=== PATIENT | female | born 1950 | race Caucasian/White ===

== ENCOUNTER 2022-02-06 21:34 | Emergency (ER) | payer MEDICARE, SELFPAY ==
[2022-02-06] VITALS (25 sets, daily range): BP systolic 144–152; BP diastolic 47–52; PULSE 89–93; RESP 18; TEMP 37; O2SAT 97–100
--- NOTE | 2022-02-06 21:30 | RT.EKG_ITS ---
APPROVED REPORT Exam: Resting ECG Reason for Exam: chest pain Patient Location: E HR:93 bpm ECG Measurements Heart Rate 93 AXIS PA 160 P 85 QRSd 90 QRS -66 QT 353 T 62 QTc 440 Conclusion Sinus rhythm...normal P axis, V-rate 60- 99 Inferior infarct, old...Q >35mS, II III aVF Anterior infarct, old...Q >40mS, abnormal ST-T, V2-V5 Physician: no stemi
--- NOTE | 2022-02-06 22:00 | DI.RAD_ITS ---
Exam(s) XR PORTABLE CHEST AP EXAM: XR PORTABLE CHEST AP CLINICAL HISTORY: shortness of breath TECHNIQUE: 2D digital imaging was performed of the chest. One image was obtained. An AP view was ob tained. COMPARISON: No exams were available for comparison FINDINGS: MEDIASTINUM: Normal. HEART: Normal. PULMONARY VASCULATURE: Normal. LUNGS: Clear. PLEURAL SPACE: No pleural effusion or pneumothorax. BONE:Within normal limits for the patient's age. OTHER FINDINGS:Normal. IMPRESSION: No acute pulmonary findings. DATA REPOSITORY: RADIATION DOSE DELIVERED:
--- NOTE | 2022-02-06 23:07 | DI.VRAD_ITS ---
PROCEDURE INFORMATION: Exam: XR Chest Exam date and time: 02/06/2022 10:26 PM Age: 71 years old Clinical indication: Shortness of breath TECHNIQUE: Imaging protocol: Radiologic exam of the chest. Views: 1 view. COMPARISON: No relevant prior studies available. FINDINGS: Lungs: Unremarkable. No consolidation. Pleural spaces: Unremarkable. No pleural effusion. No pneumothorax. Heart/Mediastinum: Unremarkable. No cardiomegaly. Bones/joints: Unremarkable. IMPRESSION: No acute findings. Dictated and Authenticated by: Ortega Briggs MD. Ordering:MILE Schroeder MD
[2022-02-06 23:20] LABS: Abs Immature Grans 0.02 10^3/uL (0.0-0.06); Absolute Basophil Count 0.02 10^3/uL (0.0-0.2); Absolute Eosinophil Count 0.28 10^3/uL (0.0-0.7); Absolute Lymphocyte Count 0.75 10^3/uL (1.2-3.4); Absolute Monocyte Count 0.47 10^3/uL (0.1-0.8); Absolute Neutrophil Count 4.06 10^3/uL (1.2-6.7); Basophils % 0.4; HGB 11.1 g/dL (11.2-15.7); Immature Grans % 0.4; Lymphocytes % 13.4; MCH 27.6 pg (27.0-33.0); MCHC 31.7 % (32.0-36.0); MCV 87 fL (80-95); MPV 9.3 fL (8.0-11.0); Monocytes % 8.4; Neutrophils % 72.4; Platelet Count 299 10^3/uL (130-400); RBC 4.02 10^6/uL (3.93-5.22); RDW 13.9 % (11.7-14.6); RDW-SD 43.8 fL
--- NOTE | 2022-02-06 23:23 | ED.GENADUL_ITS ---
Discharge Plan Disposition Patient Disposition: HOME Condition: Stable Discharge Details Clinical Impression: COVID-19, Acute pancreatitis Primary Care Provider: None,None ED Provider: Woody Guzman Home Meds and New Rx's Prescriptions: No Action atorvastatin 40 mg tablet 1 tab PO DAILY Flovent Diskus 50 mcg/actuation blister with device 1 ea INHALATION DAILY fluticasone propion-salmeterol [Advair Diskus] 250-50 mcg/dose blister with device 1 ea INHALATION 1XD clonazepam 0.5 mg tablet 1 tab PO 1XD PRN (Reason: Anxiety) Label Comments: take 1 tablet by mouth if needed for SEVERE ANXIETY, MAX 1 TAB A DAY hydroxyzine HCl 50 mg tablet 1 tab PO PRN PRN metformin 1,000 mg tablet 1 tab PO DAILY Label Comments: take 1 tablet by mouth twice a day with meals lisinopril 5 mg tablet 1 tab PO DAILY Label Comments: take 1 tablet by mouth once daily albuterol sulfate 90 mcg/actuation HFA aerosol inhaler 1 inh INHALATION PRN PRN (Reason: Respiratory Distress) Label Comments: inhale 2 puffs by mouth and INTO THE LUNGS four times a day if needed for wheezing diclofenac sodium 1 % gel TOPICAL PRN PRN (Reason: Rash) fluoxetine 60 mg tablet 1 tab PO DAILY Label Comments: TAKE 1 TABLET BY MOUTH DAILY Discharge Instructions Instructions: COVID-19 (Coronavirus Disease 2019) (ED) Additional Instructions: At this time you do have COVID-19. Thankfully your chest CT does not show any evidence of severe COVID and your oxygenation levels are excellent. You have chosen to take monoclonal antibody therapy, which will likely decrease the longevity and severity of your symptoms. However as we discussed together if you do not feel any better over the next 24 to 36 hours, you are still a candidate for the antiviral therapy. Please contact us immediately if you do change your mind and would like to take this. Please monitor your oxygen closely with your pulse oximeter. If you notice that your oxygen drops below 91% for an extended period of time please return for reassessment and reevaluation. Additionally you do have mild pancreatitis which is likely from COVID. This is causing your nausea. Please avoid any significant foods and try to stick with a clear liquid diet for the next few days. Drink plenty of fluids and stay well- hydrated. If you notice any worsening of your symptoms, or any new symptoms such as vomiting, diarrhea, fever, chills, shortness of breath, chest pain, numbness, weakness, or fainting , please return immediately to the emergency department for reevaluation. Please follow up with your primary care provider as soon as possible for reassessment and reevaluation. As always, it was a pleasure par ticipating in your medical care today. Discharge Data Discharge Date/Time-TO BE ENTERED AT DEPARTURE: 02/07/22 03:35 Medical Decision Making <JUAN F Bunn - Last Filed: 02/08/22 09:25> Patient is ambulatory with steady gait, mild tachycardia, no leukocytosis Afebrile without hypoxia Suspect patient has COVID-19 and she had a recent exposure Will order fluids, Decadron with shortness of breath and history of COPD, diagnostic labs, x-ray, virtual radiology interpretation reveals no evidence of acute abnormality, reviewed by me reveals a She will be transitioned to Dr. Stefano Guzman pending reassessment, ct chest/abd/pelvis <Woody Guzman DO - Last Filed: 02/07/22 02:23> Patient is ambulatory with steady gait, mild tachycardia, no leukocytosis Afebrile without hypoxia Suspect patient has COVID-19 and she had a recent exposure Will order fluids, Decadron with shortness of breath and history of COPD, diagnostic labs, x-ray, virtual radiology interpretation reveals no evidence of acute abnormality, reviewed by me reveals a She will be transitioned to Dr. Stefano Guzman pending reassessment, ct chest/abd/pelvis Dr. Guzman's documentation: Patient was signed out to me by my colleague Elda Zacarias. Please refer to HPI, physical exam, assessment and plan. At time of signout we are awaiting CT results. CTA of the chest shows no significant abnormality aside for mild bronchial inflammation. Additionally CT of the abdomen is unremarkable. Mild enteritis is noted. Patient does have elevation in her lipase, likely suggestive of mild pancreatitis, likely viral. Patient's respiratory status remains notably stable. No indication for inpatient admission at this time. I did discuss with the patient potential treatment options for COVID-19. We discussed monoclonal antibodies and the antiviral therapy. Patient states very clearly that she would just like the monoclonal antibody therapy and does not want antiviral therapy. I did discuss risks and benefits of this. She understands. She was given the monoclonal antibody therapy and tolerated this very well. She remained stable. She will be discharged home and does have a pulse oximeter for home monitoring. I have extensively reviewed the treatment plan and discharge instructions with the patient. I have addressed all patient concerns at this time. The patient was made aware of what symptoms to monitor for that would warrant a return to the emergency department. Discussed the plan with the patient, they demonstrate verbal understanding and agreement with our assessment and plan at this time. The documentation in this chart was dictated using [employer] dictation software. Please excuse any dictation errors. FINDINGS: Pulmonary arteries: Normal. No pulmonary emboli. Aorta: Unremarkable. No aortic aneurysm. No aortic dissection. Lungs: Emphysematous changes noted, upper lobe predominant. Mucus obstructed bronchi are noted in the right lung. No consolidation. No ground-glass opacity. Pleural spaces: Unremarkable. No pneumothorax. No pleural effusion. Heart: Unremarkable. No cardiomegaly. No pericardial effusion. No coronary artery calcifications. Lymph nodes: Unremarkable. No enlarged lymph nodes. Gallbladder and bile ducts: Cholecystectomy clips noted. Bones/joints: Unremarkable. No acute fracture. Soft tissues: Unremarkable IMPRESSION: 1. No pulmonary embolism. 2. No aortic dissection. 3. No consolidations. 4. Emphysematous changes. 5. Bronchial inflammation and endobronchial mucus. Thank you for allowing us to participate in the care of your patient. Dictated and Authenticated by: Ortega Briggs MD 02/07/2022 1:20 AM Eastern Time ([place] & [place]) FINDINGS: Lungs: Please see CT chest dictated separately. Liver: Normal. No mass. Gallbladder and bile ducts: The gallbladder is surgically absent. Negative for biliary ductal dilatation. Pancreas: Unremarkable pancreas. No ductal dilatation. No inflammatory change. No fluid collections. Spleen: Normal. No splenomegaly. Adrenal glands: Normal. No mass. Kidneys and ureters: Kidneys enhance symmetrically. Negative for hydronephrosis. Ureters are not dilated. No stones are observed. Stomach and bowel: Unremarkable stomach. Nondilated small bowel. Fat planes around loops of small bowel are indistinct. There are no inflammatory changes observed around the colon. Appendix: Normal appendix Intraperitoneal space: Mild mesenteric fat stranding. No significant free fluid. Negative for free air. Negative for abscess. Vasculature: Moderate vascular calcifications. Negative for abdominal aortic aneurysm. Lymph nodes: Mesenteric lymph nodes are mildly prominent. Negative for patholog ic lymphadenopathy. Urinary bladder: Collapsed. Reproductive: Unremarkable as visualized. Bones/joints: No compression fractures. Moderate degenerative changes noted at L2-L3. Mild narrowing present in the right hip. Severe narrowing and subchondral cysts noted at the left hip. Soft tissues: Negative for abdominal wall hernia. IMPRESSION: 1. Unremarkable pancreas by CT. 2. Findings of enteritis. 3. No abscess. Thank you for allowing us to participate in the care of your patient. Dictated and Authenticated by: Ortega Briggs MD 02/07/2022 1:23 AM Eastern Time ([place] & [place]) HPI <JUAN F Bunn - Last Filed: 02/08/22 09:25> General Date/Time Provider Initiated Documentation: 02/06/22 22:03 . HPI Narrative: This 71-year-old female with history of COPD, type II [id number] diabetes, hypertension, anxiety and depression presents with report of shortness of breath and intermittent chest pain. She states that she has had chills and myalgias. She states that her granddaughter had COVID last week. She denies any current chest discomfort. She denies any calf pain or swelling. She denies history of coagulopathy. She recently relocated from [facility] approximately 2 months ago. She has nausea without vomiting. Has a mild headache. She is not taking any medications prior to arrival. She states she is having chills. She has any urinary symptoms. She reports no shortness of breath. Related Data Home Medications Medication Instructions Recorded Confirmed albuterol sulfate 90 mcg/actuation 1 inh inhalation PRN PRN 02/06/22 02/06/22 aerosol inhaler Respiratory Distress atorvastatin 40 mg tablet 1 tab PO DAILY 02/06/22 02/06/22 clonazepam 0.5 mg tablet 1 tab PO 1XD PRN Anxiety 02/06/22 02/06/22 diclofenac sodium 1 % topical gel applic topical PRN PRN Rash 02/06/22 fluoxetine 60 mg tablet 1 tab PO DAILY 02/06/22 02/06/22 fluticasone 250 mcg-salmeterol 50 1 ea inhalation 1XD 02/06/22 02/06/22 mcg/dose blistr powdr for inhalation (Advair Diskus) fluticasone propionate 50 1 ea inhalation DAILY 02/06/22 02/06/22 mcg/actuation blister powder for inhalation (Flovent Diskus) hydroxyzine HCl 50 mg tablet 1 tab PO PRN PRN 02/06/22 02/06/22 lisinopril 5 mg tablet 1 tab PO DAILY 02/06/22 02/06/22 metformin 1,000 mg tablet 1 tab PO DAILY 02/06/22 02/06/22 Allergies Allergy/AdvReac Type Severity Reaction Status Date / Time adhesive AdvReac Skin Rash Unverified 02/06/22 23:03 bupropion [From Wellbutrin] AdvReac Dizziness/L Unverified 02/06/22 23:03 ighthead codeine AdvReac Nausea Unverified 02/07/22 07:12 quetiapine [From Seroquel] AdvReac Dizziness/L Unverified 02/06/22 23:03 ighthead Review of Systems <JUAN F Bunn - Last Filed: 02/08/22 09:25> All systems reviewed & are unremarkable except as noted in HPI and below PFSH <JUAN F Bunn - Last Filed: 02/08/22 09:25> All Active Problems (Updated 02/07/22 @ 02:14 by Woody Guzman DO) COVID-19 (Acute) Acute pancreatitis (Acute) Social History Smoking/Tobacco Use Status: Current, status unknown Smoking risk assessment performed?: Yes Drug use: Never Substance use type: does not use Do you feel safe at home: Yes Do you feel safe in your relationship?: Yes Exam <JUAN F Bunn Last Filed: 02/08/22 09:25> Const General: cooperative, comfortable and no acute distress Orientation: alert and oriented x3 Eyes Sclera: sclerae normal Resp Effort & Inspection: normal respiratory effort Auscultation: clear to auscultation bilaterally Cardio Rate: tachycardic Rhythm: regular rhythm GI Inspection: normal to inspection Skin General skin exam: no rashes or lesions noted Neuro General: patient alert and patient oriented x3 Cognition: normal cognition Gait: normal gait Extrem Other: no calf swelling or tenderness Course <JUAN F Bunn Last Filed: 02/08/22 09:25> Lab/Test Results Lab/Test Results: Laboratory Tests Range/Units 02/06/22 22:58 WBC (4.4-10.8) 10^3/uL 5.60 RBC (3.93-5.22) 10^6/uL 4.02 Hgb (11.2-15.7) g/dL 11.1 L Hct (36.0-46.0) % 35.0 L MCV (80-95) fL 87 MCH (27.0-33.0) pg 27.6 MCHC (32.0-36.0) % 31.7 L RDW (11.7-14.6) % 13.9 Plt Count (130-400) 10^3/uL 299 MPV (8.0-11.0) fL 9.3 Immature Gran % 0.4 Neutrophils % 72.4 Lymphocytes % 13.4 Monocytes % 8.4 Eosinophils % 5.0 Basophils % 0.4 Nucleated RBC % (0.0-0.3) % 0.0 Absolute Neutrophils (1.2-6.7) 10^3/uL 4.06 Absolute Lymphocytes (1.2-3.4) 10^3/uL 0.75 L Absolute Monocytes (0.1-0.8) 10^3/uL 0.47 Absolute Eosinophils (0.0-0.7) 10^3/uL 0.28 Absolute Basophils (0.0-0.2) 10^3/uL 0.02 Sign Out <JUAN F Bunn - Last Filed: 02/08/22 09:25> Sign Out Data: Sign Out Comment: pending ct chest abd pelvis, fluids, dispo Last updated by Elda Zacarias PA at 02/07/22 00:12
[2022-02-06 23:33] LABS: Lipase 1065 U/L (73-393)
[2022-02-06 23:38] LABS: ALT 41 U/L (14-59); AST 28 U/L (15-37); Albumin 3.9 g/dL (3.4-5.0); Alkaline Phosphatase 96 U/L (46-116); Anion Gap 10.1 mmol/L (3-11); BUN 18 mg/dL (7-18); Bilirubin, Total 0.3 mg/dL (0.2-1.0); CO2 27.9 mmol/L (21.0-32.0); CREATININE 1.3 mg/dL (0.55-1.02); Calcium 10.1 mg/dL (8.5-10.1); Chloride 102 mmol/L (98-107); Estimated GFR 43.69 (mL/min/1.73m2); Glucose 110 mg/dL (74-106); Potassium 4.3 mmol/L (3.5-5.1); Sodium 140 mmol/L (136-145); Total Protein 7.5 g/dL (6.4-8.2)
[2022-02-06 23:42] LABS: Troponin I < 50 ng/L (<or=60)
[2022-02-06] MEDS: Dexamethasone 4 MG/ML VIAL 6 MG IVP (23:45)
[2022-02-06] MEDS: Acetaminophen 325 MG TAB 650 MG PO (23:45)
[2022-02-06] MEDS: Ondansetron 4 MG/2 ML VIAL IVP (23:45)
[2022-02-06] MEDS: Normal Saline 1,000 ML 1000 ML IV (23:45)
[2022-02-06 23:57] LABS: Influenza A PCR Negative (Negative); Influenza B PCR Negative (Negative); RSV PCR Negative (Negative)
[2022-02-07] VITALS (41 sets, daily range): BP systolic 130–162; BP diastolic 39–54; PULSE 87–98; RESP 14; O2SAT 78–100
--- NOTE | 2022-02-07 | DI.CT_ITS ---
Exam(s) CT CHEST PE CTA EXAM: CT CHEST PE CTA CLINICAL HISTORY: covid, chest pain, and shortness of breath. TECHNIQUE: Imaging Protocol: Axial CT angiography was performed with multi-slice acquisition and mu lti-planar and/or 3D reconstructions. CONTRAST MATERIAL: Intravenous: Omnipaque 350 contrast volume:100 mL COMPARISON: CR,XR XR PORTABLE CHEST AP from 02/06/2022 FINDINGS: Tracheobronchial tree: Patent where visualized. Pulmonary parenchyma: No consolidation or dominant measurable mass. Moderate centrilobular emphysemat ous changes are present. Pulmonary Arteries: No evidence of filling defect to suggest pulmonary emboli. Mediastinum and Krista: No dominant adenopathy or fluid collection. The esophagus is unremarkable. Th ere is a small hiatal hernia. Visualized thyroid gland: Unremarkable. Pleura: No effusion or pneumothorax. Heart: The heart is not dilated. No coronary artery calcifications are seen. No pericardial effusion. Aorta: Thoracic aorta non-dilated. No evidence of dissection. Atherosclerosis is present. Upper abdomen: Status post cholecystectomy. Soft tissues: Unremarkable. Bones: Within normal limits for the patient's age. IMPRESSION: 1. No evidence of pulmonary embolism, thoracic aortic dissection or aneurysm. 2. No focal consolidation. 3. Moderate centrilobular emphysema. RADIATION DOSE DELIVERED: Total DLP DATA REPOSITORY: All CT scans at this facility are submitted to the National Radiology Data Registry (NRDR) Dose Index Registry (DIR) with the [employer] ([employer]). RADIATION OPTIMIZATION: All CT scans at this facility use at least one of these dose optimization te chniques: automated exposure control; mA and/or kV adjustment per patient size (includes targeted exa ms where dose is matched to clinical indication); or iterative reconstruction.
--- NOTE | 2022-02-07 | DI.CT_ITS ---
Exam(s) CT ABDOMEN PELVIS W EXAM: CT ABDOMEN PELVIS W CLINICAL HISTORY: elevated lipase,. covid TECHNIQUE: Imaging Protocol: Axial computed tomography images with coronal and sagittal reformatted images were created and reviewed CONTRAST MATERIAL: Intravenous: Omnipaque 350 Contrast volume:100 mL Oral: No COMPARISON: No exams were available for comparison FINDINGS: ABDOMEN: Lung Bases: Normal where visualized. Liver: Normal density. No measurable mass. Portal, Superior Mesenteric, and Splenic Veins: Unremarkable. Gallbladder and Biliary Tract: Status post cholecystectomy. There is mild dilatation of the extrahep atic bile ducts likely reflecting the post cholecystectomy state. Pancreas: Normal density, no abnormal calcifications or inflammatory process. Spleen: Normal. Adrenals: No masses seen. Kidneys: Normal size, contour and axis. No radiodense stones or obstructive uropathy. There is a tiny simple cyst in the midpole of the left kidney. No follow-up is recommended. Abdominal Aorta: Abdominal portion non-dilated. Atherosclerosis is present. Bowel: No evidence of obstruction. Mild wall thickening in loops of small bowel in the left upper ab domen which may represent an infectious or inflammatory enteritis. Appendix is unremarkable. Peritoneal Cavity: No ascites, collection or mesenteric inflammatory response. No free air. Lymph Nodes: Within normal limits. Bones: Within normal limits for the patient's age. Moderately severe degenerative changes are seen i n the left hip. Soft Tissues: Unremarkable. PELVIS: Bladder: There is diffuse thickening of the wall of the urinary bladder. Reproductive Organs: Unremarkable as visualized. Lymph Nodes: Within normal limits. Bones: Within normal limits for the patient's age. IMPRESSION: 1. Unremarkable pancreas. No CT evidence to suggest acute pancreatitis. 2. Findings suspicious for enteritis. RADIATION DOSE DELIVERED: 1140.97 mGy.cm Total DLP DATA REPOSITORY: All CT scans at this facility are submitted to the National Radiology Data Registry (NRDR) Dose Index Registry (DIR) with the [employer] (ACR). RADIATION OPTIMIZATION: All CT scans at this facility use at least one of these dose optimization te chniques: automated exposure control; mA and/or kV adjustment per patient size (includes targeted exa ms where dose is matched to clinical indication); or iterative reconstruction.
[2022-02-07 00:07] LABS: Source Nasopharynx
[2022-02-07 00:08] LABS: COVID-19 PCR Positive (Negative)
[2022-02-07] MEDS: Omnipaque 350 MG/ML 100 ML BTL IJ (00:51)
[2022-02-07 01:08] LABS: Bilirubin Negative (Negative); Blood Negative (Negative); Clarity Clear (Clear); Glucose Negative (Negative); Ketones Negative (Negative); Leukocyte Esterase Negative (Negative); Nitrite Negative (Negative); Specific Gravity >= 1.030 (1.005-1.025); Urobilinogen 0.2 EU/dL (Up TO 0.2)
[2022-02-07 01:14] LABS: D-Dimer 893 ng/mlFEU (<500)
--- NOTE | 2022-02-07 01:20 | DI.VRAD_ITS ---
PROCEDURE INFORMATION: Exam: CTA Chest With Contrast Exam date and time: 02/07/2022 12:35 AM Age: 71 years old Clinical indication: Shortness of breath and other: Covid, chest pain, and shortness of breath TECHNIQUE: Imaging protocol: Computed tomographic angiography of the chest with contrast. 3D rendering (Not supervised by radiologist): MIP and/or 3D reconstructed images were created by the technologist. Radiation optimization: All CT scans at this facility use at least one of these dose optimization techniques: automated exposure control; mA and/or kV adjustment per patient size (includes targeted exams where dose is matched to clinical indication); or iterative reconstruction. Contrast material: OMNI 350; Contrast volume: 100 ml; Contrast route: INTRAVENOUS (IV); COMPARISON: XR PORTABLE CHEST AP 02/06/2022 10:26 PM FINDINGS: Pulmonary arteries: Normal. No pulmonary emboli. Aorta: Unremarkable. No aortic aneurysm. No aortic dissection. Lungs: Emphysematous changes noted, upper lobe predominant. Mucus obstructed bronchi are noted in the right lung. No consolidation. No ground-glass opacity. Pleural spaces: Unremarkable. No pneumothorax. No pleural effusion. Heart: Unremarkable. No cardiomegaly. No pericardial effusion. No coronary artery calcifications. Lymph nodes: Unremarkable. No enlarged lymph nodes. Gallbladder and bile ducts: Cholecystectomy clips noted. Bones/joints: Unremarkable. No acute fracture. Soft tissues: Unremarkable. IMPRESSION: 1. No pulmonary embolism. 2. No aortic dissection. 3. No consolidations. 4. Emphysematous changes. 5. Bronchial inflammation and endobronchial mucus. Dictated and Authenticated by: Ortega Briggs MD. Ordering:MILE Schroeder MD
--- NOTE | 2022-02-07 01:24 | DI.VRAD_ITS ---
PROCEDURE INFORMATION: Exam: CT Abdomen And Pelvis With Contrast Exam date and time: 02/07/2022 12:35 AM Age: 71 years old Clinical indication: Other: Elevated lipase, . covid; Prior surgery; Surgery date: 6+ months; Surgery type: Cholecystectomy TECHNIQUE: Imaging protocol: Computed tomography of the abdomen and pelvis with contrast. Radiation optimization: All CT scans at this facility use at least one of these dose optimization techniques: automated exposure control; mA and/or kV adjustment per patient size (includes targeted exams where dose is matched to clinical indication); or iterative reconstruction. Contrast material: OMNI 350; Contrast volume: 100 ml; Contrast route: INTRAVENOUS (IV); COMPARISON: XR PORTABLE CHEST AP 02/06/2022 10:26 PM FINDINGS: Lungs: Please see CT chest dictated separately. Liver: Normal. No mass. Gallbladder and bile ducts: The gallbladder is surgically absent. Negative for biliary ductal dilatation. Pancreas: Unremarkable pancreas. No ductal dilatation. No inflammatory change. No fluid collections. Spleen: Normal. No splenomegaly. Adrenal glands: Normal. No mass. Kidneys and ureters: Kidneys enhance symmetrically. Negative for hydronephrosis. Ureters are not dilated. No stones are observed. Stomach and bowel: Unremarkable stomach. Nondilated small bowel. Fat planes around loops of small bowel are indistinct. There are no inflammatory changes observed around the colon. Appendix: Normal appendix. Intraperitoneal space: Mild mesenteric fat stranding. No significant free fluid. Negative for free air. Negative for abscess. Vasculature: Moderate vascular calcifications. Negative for abdominal aortic aneurysm. Lymph nodes: Mesenteric lymph nodes are mildly prominent. Negative for pathologic lymphadenopathy. Urinary bladder: Collapsed. Reproductive: Unremarkable as visualized. Bones/joints: No compression fractures. Moderate degenerative changes noted at L2-L3. Mild narrowing present in the right hip. Severe narrowing and subchondral cysts noted at the left hip. Soft tissues: Negative for abdominal wall hernia. IMPRESSION: 1. Unremarkable pancreas by CT. 2. Findings of enteritis. 3. No abscess. Dictated and Authenticated by: Ortega Briggs MD. Ordering:MILE Schroeder MD
== END 2022-02-07 03:35 | disposition home or self-care (01) ==
PROVIDERS: Physician Assistant; Emergency Provider Student in an Organized Health Care Education/Training Program
DX: U07.1 COVID-19 (principal); K85.90 Acute pancreatitis without necrosis or infection, unspecified; I10 Essential (primary) hypertension; E11.9 Type 2 diabetes mellitus without complications; J44.9 Chronic obstructive pulmonary disease, unspecified; R00.0 Tachycardia, unspecified; Z79.51 Long term (current) use of inhaled steroids; Z79.84 Long term (current) use of oral hypoglycemic drugs
CPT/HCPCS: 71275; 80053; 83690; 87637; 93005; 96361; 96374; 96375; 99284; 99285; Q0222; 71045; 74177; 81003; 84484; 85025; 85379; 93010; J1100; J2405; J3490

== ENCOUNTER 2022-04-17 16:41 | Emergency (ER) | payer MEDICARE, SELFPAY ==
[2022-04-17] VITALS (52 sets, daily range): BP systolic 132–169; BP diastolic 49–63; PULSE 92–104; RESP 9–37; TEMP 37.6–38.4; O2SAT 96–100
--- NOTE | 2022-04-17 16:45 | DI.RAD_ITS ---
Exam(s) XR PORTABLE CHEST AP EXAM: XR PORTABLE CHEST AP CLINICAL HISTORY: cough, r/o acute disease. TECHNIQUE: 2D digital imaging was performed. COMPARISON: CR,XR XR PORTABLE CHEST AP from 02/06/2022 FINDINGS: Single AP portable view. Heart size is upper normal. The mediastinum is not widened. Lungs are clear. No infiltrates nor obvious pleural effusions. IMPRESSION: No acute pulmonary findings on this single AP portable view of the chest. DATA REPOSITORY: RADIATION DOSE DELIVERED:
--- NOTE | 2022-04-17 16:45 | RT.EKG_ITS ---
APPROVED REPORT Exam: Resting ECG Reason for Exam: sob Patient Location: E HR:97 bpm ECG Measurements Heart Rate 97 AXIS OK 148 P -26 QRSd 85 QRS 127 QT 339 T -17 QTc 431 Conclusion Sinus rhythm...normal P axis, V-rate 60- 99 Probable left atrial enlargement...P >50mS, <-0.10mV V1 Anteroseptal infarct, age indeterminate...Q >35mS, T neg, V1-V2. Sinus. Normal axis. No STEMI. I have reviewed and interpreted ECG and agree with software generated interpretation.
--- NOTE | 2022-04-17 17:13 | ED.GENADUL_ITS ---
Discharge Plan Disposition Patient Disposition: Home Condition: Improving Discharge Details Clinical Impression: Influenza A Primary Care Provider: Rima Fontenot ED Provider: Selin Moreno Home Meds and New Rx's Prescriptions: Continued atorvastatin 40 mg tablet 1 tab PO DAILY Flovent Diskus 50 mcg/actuation blister with device 1 ea INHALATION DAILY fluticasone propion-salmeterol [Advair Diskus] 250-50 mcg/dose blister with device 1 ea INHALATION 1XD clonazepam 0.5 mg tablet 1 tab PO 1XD PRN (Reason: Anxiety) Label Comments: take 1 tablet by mouth if needed for SEVERE ANXIETY, MAX 1 TAB A DAY hydroxyzine HCl 50 mg tablet 1 tab PO PRN PRN metformin 1,000 mg tablet 1 tab PO DAILY Label Comments: take 1 tablet by mouth twice a day with meals lisinopril 5 mg tablet 1 tab PO DAILY Label Comments: take 1 tablet by mouth once daily albuterol sulfate 90 mcg/actuation HFA aerosol inhaler 1 inh INHALATION PRN PRN (Reason: Respiratory Distress) Label Comments: inhale 2 puffs by mouth and INTO THE LUNGS four times a day if needed for wheezing diclofenac sodium 1 % gel TOPICAL PRN PRN (Reason: Rash) fluoxetine 60 mg tablet 1 tab PO DAILY Label Comments: TAKE 1 TABLET BY MOUTH DAILY Discharge Instructions Instructions: H1N1 Influenza (ED) Additional Instructions: You tested positive for influenza A today. Your COVID and RSV test today are negative. Your chest x-ray shows no evidence of acute disease. Drink plenty of fluids and get plenty of rest. Alternate tylenol and motrin as needed and directed for pain. Use your albuterol inhaler and nebulizer machine as needed and directed for cough or shortness of breath. Follow-up with your primary care doctor in 1 week. Return to the emergency department with any worsening or new concerning symptoms. Discharge Data Discharge Date/Time-TO BE ENTERED AT DEPARTURE: 04/17/22 19:37 Discharge Physician: Selin Moreno Medical Decision Making 0 -- 72-year-old female with a history of hypertension, hyperlipidemia, diabetes, COPD, anxiety, PTSD and chronic tobacco smoking who presents with 1 week of headache, cough, nausea and shortness of breath. Heart rate 104, temp 101.1 on arrival. She has normal respiratory rate and oxygen saturation. She has diminished breath sounds throughout. Normal oropharynx. No lower extremity edema. Differential diagnosis includes influenza, COVID, pneumonia, bronchitis. History and presentation does not appear consistent with ACS or PE. Will obtain a SARS/flu antigen test and chest x-ray in addition to DuoNeb, fluids and IV Tylenol. Antigen test positive for influenza A. She is negative for RSV and COVID. Chest x-ray negative for acute disease. 1800 --patient reassessed after neb treatment and states she feels better. Patient was able to eat and drink and feels comfortable going home. She was given an albuterol inhaler to go. She was advised to increase fluids, rest and alternate Tylenol and Motrin. Advised to follow up with the primary care doctor for re-evaluation. Usual and customary return precautions given prior to discharge. Medical Records Medical records reviewed: Yes I reviewed the patient's medical records. Imaging Data Radiologic Study: Radiologist's impression: XR Chest Exam date and time: 04/17/2022 5:27 PM Age: 72 years old Clinical indication: Other: Cough, R/O acute disease TECHNIQUE: Imaging protocol: Radiologic exam of the chest. Views: 1 view. COMPARISON: XR PORTABLE CHEST AP 02/06/2022 10:26 PM FINDINGS: Lungs: The lungs are clear without infiltrate or edema. Pleural spaces: No pleural effusion. No pneumothorax. Heart/Mediastinum: The cardiac silhouette is normal in size. Bones/joints: No acute osseous abnormality. IMPRESSION: No acute findings. HPI General Mode of arrival: ambulatory . Date/Time Provider Initiated Documentation: 04/17/22 16:43 . Limitations to Documentation: no limitations . Information obtained by: patient . HPI Narrative: Patient is a 72-year-old female with a history of hypertension, hyperlipidemia, diabetes, COPD with chronic tobacco smoking who presents for headache, nausea, cough and shortness of breath of the past week. Patient states her cough initially was dry and is now productive of yellow sputum. She states she was unaware that she had a fever. She states she has not taken any medication including Tylenol or Motrin for her symptoms today. She states she has not been eating or drinking and has not drank any water today. She states she is still smoking cigarettes. She states she has also had intermittent chest pains for the past week but denies any at present. She denies any sore throat, abdominal pain, nausea, vomiting, diarrhea or urinary symptoms. Related Data Home Medications Medication Instructions Recorded Confirmed albuterol sulfate 90 mcg/actuation 1 inh inhalation PRN PRN 02/06/22 04/17/22 aerosol inhaler Respiratory Distress atorvastatin 40 mg tablet 1 tab PO DAILY 02/06/22 04/17/22 clonazepam 0.5 mg tablet 1 tab PO 1XD PRN Anxiety 02/06/22 04/17/22 diclofenac sodium 1 % topical gel applic topical PRN PRN Rash 02/06/22 fluoxetine 60 mg tablet 1 tab PO DAILY 02/06/22 04/17/22 fluticasone 250 mcg-salmeterol 50 1 ea inhalation 1XD 02/06/22 04/17/22 mcg/dose blistr powdr for inhalation (Advair Diskus) fluticasone propionate 50 1 ea inhalation DAILY 02/06/22 04/17/22 mcg/actuation blister powder for inhalation (Flovent Diskus) hydroxyzine HCl 50 mg tablet 1 tab PO PRN PRN 02/06/22 04/17/22 lisinopril 5 mg tablet 1 tab PO DAILY 02/06/22 04/17/22 metformin 1,000 mg tablet 1 tab PO DAILY 02/06/22 04/17/22 Allergies Allergy/AdvReac Type Severity Reaction Status Date / Time adhesive AdvReac Skin Rash Unverified 04/17/22 17:09 bupropion [From Wellbutrin] AdvReac Dizziness/L Unverified 04/17/22 17:09 ighthead codeine AdvReac Nausea Unverified 04/17/22 17:09 quetiapine [From Seroquel] AdvReac Dizziness/L Unverified 04/17/22 17:09 ighthead General Stated Complaint: Headache LOUANN: 3 Review of Systems All systems reviewed & are unremarkable except as noted in HPI and below Constitutional Constitutional: Reports as per HPI, Denies chills, Denies fever(s) and Reports headache(s) Eyes Eyes: Denies blurry vision ENT Ears, Nose, Mouth, and Throat: Denies dizziness, Reports headache(s), Denies sore throat and Denies throat swelling Cardiovascular Cardiovascular: Denies chest pain and Reports dyspnea Respiratory Respiratory: Reports cough and Reports dyspnea Gastrointestinal Gastrointestinal: Denies abdominal pain, Denies diarrhea, Reports nausea and Denies vomiting Genitourinary Genitourinary: Denies hematuria and Denies dysuria Musculoskeletal Musculoskeletal: Denies back pain and Denies numbness Integumentary/Breasts Skin/Breast: Denies lesions and Denies rash Neurologic Neurologic: Denies dizziness, Reports headache(s), Denies localized weakness and Denies numbness Allergic/Immunologic Allergic/Immunologic: Denies throat swelling PFSH All Active Problems (Updated 04/17/22 @ 18:12 by Selin Moreno DO) Influenza A (Acute) Sialoadenitis (Acute) Herniated nucleus pulposus of lumbosacral region (Acute) COVID-19 (Acute) Medical History (Updated 04/17/22 @ 18:12 by Selin Moreno DO) Asthma COPD (chronic obstructive pulmonary disease) BRANDON (generalized anxiety disorder) Hyperlipidemia Hypertension Post traumatic stress disorder (PTSD) Renal insufficiency Type II diabetes mellitus Surgical History (Updated 04/12/22 @ 10:39 by Jaymie Wilson) History of cholecystectomy History of laminectomy (06/17/20) Left L3-4 laminotomy discectomy left L3, L4 nerve root decompression History of tonsillectomy and adenoidectomy Family History (Updated 04/12/22 @ 10:43 by Jaymie Wilson) Maternal Grandfather Asthma Son Asthma Depression Mother Heart disease Hypertension Brother Heart disease Sister Cancer Uterine Social History (Updated 04/12/22 @ 08:47 by Jaymie Wilson) Smoking/Tobacco Use Status: Current-Occasional Tobacco Type: cigarettes Years smoked: 50 Tobacco: How many years used: 50 Quit status: considering quitting Smoking risk assessment performed?: Yes Alcohol Intake: never Drug use: Never Substance use type: does not use Adopted: No Caregiver/Support person: No Foster care: No Household members: children Housing: house Number of Children: 2 number of grandchildren: 5 Communication Needs: None Education Level: high school Do you need help understanding health information?: Rarely current occupation: Retired Pets and animals: No Sexually active: No Do you think of yourself as: straight/heterosexual Current gender identity: female What is your relationship status?: How often do you talk on the phone with friends or family?: three or more times per week How often do you get together with friends or relatives?: once per week Do you belong to any clubs or organized social groups?: no Panel score (0-1 are the most socially isolated patients): 1 What type of physical activity do you participate in: walking Duration: 15-30 minutes/day Frequency: 5-6 times per week Isabel/Episcopal: Latter-Day Special isabel needs: No Seatbelt use: always Helmet use: No Drive intox or ride w/intox courier delivery driver: No Do you feel safe at home: Yes Do you feel safe in your relationship?: Yes Exam Const General: cooperative and no acute distress Orientation: alert, awake and oriented x3 HENMT Head: normal to inspection Face and sinus: normal facial exam Eyes General: appearance normal, both eyes and all related structures Pupils: PERRL EOM: EOM intact bilaterally Neck Neck: normal visual inspection and No submandibular swelling Lymphatic: no lymphadenopathy noted Chest Chest: normal inspection of the chest and no tenderness Resp Effort & Inspection: normal respiratory effort and able to speak in complete sentences Auscultation: diminished lung sounds bilaterally throughout Cardio Rate: regular rate Rhythm: regular rhythm GI Inspection: normal to inspection Palpation: soft, not firm, not rigid and nontender Auscultation: hypoactive bowel sounds Skin General skin exam: no rashes or lesions noted Neuro General: patient alert, patient awake and patient oriented x3 Cognition: normal cognition Speech: speech normal Motor: muscle tone normal throughout Sensory Exam: no sensory deficits noted Extrem General: normal to inspection, full ROM, capillary refill normal, no calf tenderness bilaterally and no edema Psych Appearance: grossly normal Mental Status: mental status grossly normal Speech and Movement: speech and movement normal Affect: normal affect Course Vital Signs Vital signs: Vital Signs Temperature 101.1 F H 04/17/22 16:44 Pulse 104 H 04/17/22 16:44 Respiratory Rate 18 04/17/22 16:44 Blood Pressure 169/63 H 04/17/22 16:44 Pulse Oximetry 97 04/17/22 16:44 Temperature 101.1 F H 04/17/22 16:44 Temperature Source Tympanic 04/17/22 16:44 Pulse 104 H 04/17/22 16:44 Respiratory Rate 18 04/17/22 16:44 Respiratory Effort Short of Breath 04/17/22 16:47 Blood Pressure 169/63 H 04/17/22 16:44 Blood Pressure Position Supine 04/17/22 16:44 Pulse Oximetry 97 04/17/22 16:44 Oxygen Delivery Method Room Air 04/17/22 16:44 Oxygen Flow Rate 0 04/17/22 16:44 Pain Level 9 04/17/22 16:44
[2022-04-17] MEDS: ACETAMINOPHEN 1,000 MG/100 ML BTL 400 MG IVPB (17:34)
[2022-04-17] MEDS: Normal Saline 500 ML IV (17:34)
[2022-04-17] MEDS: Albuterol/Ipratropium 3 ML UPD VIAL UPD (17:35)
--- NOTE | 2022-04-17 18:08 | DI.VRAD_ITS ---
PROCEDURE INFORMATION: Exam: XR Chest Exam date and time: 04/17/2022 5:27 PM Age: 72 years old Clinical indication: Other: Cough, R/O acute disease TECHNIQUE: Imaging protocol: Radiologic exam of the chest. Views: 1 view. COMPARISON: XR PORTABLE CHEST AP 02/06/2022 10:26 PM FINDINGS: Lungs: The lungs are clear without infiltrate or edema. Pleural spaces: No pleural effusion. No pneumothorax. Heart/Mediastinum: The cardiac silhouette is normal in size. Bones/joints: No acute osseous abnormality. IMPRESSION: No acute findings. Dictated and Authenticated by: Lisa Ulloa MD. Ordering:BIANCA Smallwood MD
== END 2022-04-17 19:37 | disposition home or self-care (01) ==
PROVIDERS: Emergency Provider Physician Assistant; PCP Nurse Practitioner
DX: J10.1 Influenza due to other identified influenza virus with other respiratory manifestations (principal); I10 Essential (primary) hypertension; E11.9 Type 2 diabetes mellitus without complications; J44.9 Chronic obstructive pulmonary disease, unspecified; F17.210 Nicotine dependence, cigarettes, uncomplicated; Z20.822 Contact with and (suspected) exposure to COVID-19; Z79.51 Long term (current) use of inhaled steroids; Z79.84 Long term (current) use of oral hypoglycemic drugs; Z79.899 Other long term (current) drug therapy
CPT/HCPCS: 93005; 94640; 96365; 99284; 71045; 93010; J0131; J7620

== ENCOUNTER 2022-05-11 02:42 | Outpatient (CLI) | payer MEDICARE, SELFPAY ==
[2022-05-11 11:13] LABS: ALT 42 U/L (14-59); AST 26 U/L (15-37); Albumin 3.5 g/dL (3.4-5.0); Alkaline Phosphatase 119 U/L (46-116); Anion Gap 6.6 mmol/L (3-11); BUN 23 mg/dL (7-18); Bilirubin, Total 0.3 mg/dL (0.2-1.0); CO2 29.4 mmol/L (21.0-32.0); CREATININE 1.1 mg/dL (0.55-1.02); Calcium 9.8 mg/dL (8.5-10.1); Calculated LDL 162 mg/dL (<100); Chloride 102 mmol/L (98-107); Cholesterol 261 mg/dL (<200); Estimated GFR 53.06 (mL/min/1.73m2); Glucose 140 mg/dL (74-106); HDL Cholesterol 55 mg/dL (40-60); Potassium 4.6 mmol/L (3.5-5.1); Sodium 138 mmol/L (136-145); Total Protein 7.5 g/dL (6.4-8.2); Triglyceride 221 mg/dL (<150)
[2022-05-12 09:48] LABS: Hepatitis C Ab w Rflx HCV PCR Negative (Negative)
[2022-05-12 14:34] LABS: Hemoglobin A1C 7.4 % (<5.7)
== END 2022-05-11 02:43 | disposition home or self-care (01) ==
LOC: LBO 02:42
PROVIDERS: PCP Nurse Practitioner; Referring Provider Nurse Practitioner; Visit Provider Nurse Practitioner
DX: I10 Essential (primary) hypertension (principal); E11.9 Type 2 diabetes mellitus without complications; E78.5 Hyperlipidemia, unspecified; Z11.59 Encounter for screening for other viral diseases
CPT/HCPCS: 36415; 80053; 80061; 86803; 83036

== ENCOUNTER 2022-08-12 00:38 | Outpatient (CLI) | payer MEDICARE, SELFPAY ==
--- NOTE | 2022-08-12 08:15 | DI.MAMMO_ITS ---
Exam(s) MAMMO SCREENING EXAM: MAMMO SCREENING CLINICAL HISTORY: screening,Z12.39 TECHNIQUE: Mammograms were interpreted according to the usual protocol including computer analysis w [employer] CAD system, tomosynthesis and C-view imaging. COMPARISON: [facility] FINDINGS: The breasts are composed of heterogeneously dense fibroglandular densities, Breast Density category C . No suspicious masses are seen in the left breast. There are new calcifications in the posterior righ t breast on the MLO view. Spot magnification views are recommended. No skin thickening or abnormal axillary lymph nodes are seen. There has been no significant change in the left breast from prior exams. IMPRESSION: BI-RADS Category 0 - Assessment Incomplete: Need additional imaging evaluation Breast Density Category C, heterogeneously Dense. The mammogram demonstrates the patient's breast tissue is dense. Dense breast tissue is very common a nd is not abnormal but dense breast tissue can make it harder to find cancer on a mammogram. Also, de nse breast tissue may increase breast cancer risk. This information about the result of the mammogram report was provided to the patient to raise their awareness. Use this report when you speak with the patient about their risks for breast cancer, which includes their family history. At that time, you may recommend additional screening tests (Ultrasound or MRI) as they might be useful based on their r isk. A negative radiographic report should not delay biopsy if a dominant or clinically suspicious mass is present. Up to ten percent of cancers are not identified on mammography. A negative report may reinforce clinical impression. Adenosis and dense breasts may obscure an underlying neoplasm. False positive reports average 6 to 10%.
== END 2022-08-12 00:58 ==
LOC: DI 00:39
PROVIDERS: PCP Nurse Practitioner; Visit Provider Nurse Practitioner
DX: Z12.31 Encounter for screening mammogram for malignant neoplasm of breast (principal)
CPT/HCPCS: 77063; 77067

== ENCOUNTER 2022-08-22 03:58 | Outpatient (CLI) | payer MEDICARE, SELFPAY ==
--- NOTE | 2022-08-22 10:05 | DI.MAMMO_ITS ---
Exam(s) MAMMO SCREEN CALL BACK UNI EXAM: MAMMO SCREEN CALL BACK UNI CLINICAL HISTORY: F/U MAMMO, R92.8,NEW CALCIFICATIONS RT BREAST. TECHNIQUE: Craniocaudal and mediolateral oblique Full Field Digital Mammography views of the right b reast with Computer Aided Diagnosis. COMPARISON: Comparison is made with prior examinations. FINDINGS: Mammography/Tomosynthesis: Masses/Architectural Distortion: None seen. Microcalcifictions: There is a cluster of calcifications in the posterior outer right breast which ar e new compared to the prior examination. No associated mass or architectural distortion is seen. Skin Thickening/Nipple Retraction: None. IMPRESSION: 1. New cluster of microcalcifications in the posterior outer right breast. 2. Biopsy is recommended for further evaluation. 3. Findings were discussed with the patient on the date of the examination. The findings were discus sed with the patient's primary care provider, Rima Fontenot on 08/22/2022. BI-RADS Category 4 - Suspicious Abnormality: Biopsy should be considered Breast Density - Category C - Heterogeneously dense Breast density Category C or D implies that the patient has dense breast tissue. Dense breast tissue can make it harder to find cancer on a mammogram. Dense breast tissue is also associated with an incr eased risk of breast cancer. This information about the result of the mammogram report was provided to the patient to raise their awareness. Use this report when you speak with the patient about their risks for breast cancer, which includes their family history. At that time, you may recommend additional screening tests (Ultrasoun d or MRI) as these tests may add significant information. A negative radiographic report should not delay biopsy if a dominant or clinically suspicious mass is present. Up to ten percent of cancers are not identified on mammography. A negative report may reinforce clinical impression. Adenosis and dense breasts may obscure an underlying neoplasm. False positive reports average 6 to 10%. Patient will receive a letter notifying them of these results.
== END 2022-08-22 04:18 ==
LOC: DI 04:01
PROVIDERS: PCP Nurse Practitioner; Visit Provider Nurse Practitioner
DX: R92.8 Other abnormal and inconclusive findings on diagnostic imaging of breast (principal)
CPT/HCPCS: 77063; 77067

== ENCOUNTER 2022-08-26 18:38 | Emergency (ER) | payer MEDICARE, SELFPAY ==
--- NOTE | 2022-08-26 18:30 | RT.EKG_ITS ---
APPROVED REPORT Exam: Resting ECG Reason for Exam: chest pain Patient Location: E HR:81 bpm ECG Measurements Heart Rate 81 AXIS OK 168 P 79 QRSd 93 QRS -55 QT 384 T 59 QTc 445 Conclusion Sinus rhythm...normal P axis, V-rate 60- 99 Left anterior fascicular block...axis(240,-40), init forces inf There are no significant changes compared to prior EKG performed on 02/06/2022 at 22:10.
[2022-08-26 18:41] VITALS: BP 184/74; PULSE 82; O2SAT 96
--- NOTE | 2022-08-26 19:09 | ED.GENADUL_ITS ---
Discharge Plan Disposition Patient Disposition: Home Condition: Good Discharge Details Clinical Impression: Chest pain Primary Care Provider: Rima Fontenot ED Provider: Ankit Martinez [place] Meds and New Rx's Prescriptions: Continued albuterol sulfate 90 mcg/actuation HFA aerosol inhaler 1 inh INHALATION PRN PRN (Reason: Respiratory Distress) Qty: 8.5 12RF atorvastatin 40 mg tablet 40 mg PO DAILY Qty: 90 3RF clonazepam 0.5 mg tablet 0.5 mg PO 1XD PRN (Reason: Anxiety) Qty: 10 0RF fluticasone propion-salmeterol [Advair Diskus] 250-50 mcg/dose blister with device 1 ea INHALATION BID Qty: 60 12RF hydroxyzine HCl 50 mg tablet 50 mg PO DAILY PRN (Reason: anxiety) Qty: 90 3RF metformin 1,000 mg tablet 1,000 mg PO DAILY Qty: 90 3RF (DME) nebulizer and compressor Device See Rx Instructions .Route Qty: 1 0RF Rx Instructions: As directed cholecalciferol (vitamin D3) 50 mcg (2,000 unit) capsule 50 mcg PO DAILY multivitamin Tablet 1 tab PO QAM (DME) nebulizers Misc See Rx Instructions .Route Qty: 1 0RF Rx Instructions: As directed, Q6 prn lisinopril 5 mg tablet 10 mg PO DAILY Qty: 90 3RF fluoxetine 20 mg capsule 60 mg PO DAILY Qty: 270 1RF diclofenac sodium 1 % gel TOPICAL PRN PRN (Reason: Rash) Discharge Instructions Instructions: Chest Pain (ED) Additional Instructions: You were seen in the ED for chest pain. Your evaluation including EKG, chest x- ray, laboratory studies were all reassuring. Please follow-up with primary care next week as planned. Return to ED for any new or worsening pain, shortness of breath, fever, syncope, other concerns. Discharge Data Discharge Date/Time-TO BE ENTERED AT DEPARTURE: 08/26/22 20:59 Medical Decision Making Patient presenting to ED with episodes of fleeting left-sided chest pain for the last 3 days. She admits that is likely her anxiety but she wanted to be checked out. She also complains of shortness of breath but this is chronic and unchanged. She denies fever or cough. She looks well. EKG is sinus rhythm with no acute ST elevation or depression noted. Will place IV and obtain labs including D-dimer, obtain chest x-ray. Patient laboratory studies with stable anemia, negative age-adjusted D-dimer, mild renal insufficiency, negative troponin. Given the atypical nature of her pain and that it is fleeting lasting only seconds to minutes as well as duration of 3 days I do not feel a second troponin is necessary. Patient is reassured. She has follow-up with primary care next week. Discharged home in good condition with return precautions. HPI General Mode of arrival: ambulatory . Date/Time Provider Initiated Documentation: 08/26/22 19:08 . Limitations to Documentation: no limitations . Information obtained by: patient . HPI Narrative: Patient presents to ED with concerns for intermittent chest pain that lasts seconds to minutes now ongoing for 3 days. Patient also reporting shortness of breath but upon further questioning this is chronic and unchanged. She does report that she stopped smoking because of that shortness of breath. She denies any fever or cough. She denies any radiation of pain. It is left lateral in nature. Currently does not have it. She thinks it is likely related to her anxiety. She did take clonazepam 2 days ago for this which made it much better. However she is only prescribed 10 clonazepam every 90 days to be used only for panic attacks. Related Data Home Medications Medication Instructions Recorded Confirmed diclofenac sodium 1 % topical gel applic topical PRN PRN Rash 02/06/22 05/31/22 cholecalciferol (vitamin D3) 50 50 mcg PO DAILY 04/26/22 08/26/22 mcg (2,000 unit) capsule multivitamin 1 tab PO QAM 04/26/22 08/26/22 nebulizers #1 ea 04/26/22 05/31/22 albuterol sulfate 90 mcg/actuation 1 inh inhalation PRN PRN 05/05/22 08/26/22 aerosol inhaler Respiratory Distress #8.5 grams atorvastatin 40 mg tablet 40 mg PO DAILY #90 tabs 05/05/22 08/26/22 clonazepam 0.5 mg tablet 0.5 mg PO 1XD PRN Anxiety #10 tabs 05/05/22 08/26/22 fluticasone 250 mcg-salmeterol 50 1 ea inhalation BID #60 ea 05/05/22 08/26/22 mcg/dose blistr powdr for inhalation (Advair Diskus) hydroxyzine HCl 50 mg tablet 50 mg PO DAILY PRN anxiety #90 tabs 05/05/22 08/26/22 metformin 1,000 mg tablet 1,000 mg PO DAILY #90 tabs 05/05/22 08/26/22 nebulizer and compressor #1 ea 05/05/22 05/31/22 fluoxetine 20 mg capsule 60 mg PO DAILY #270 caps 05/11/22 08/26/22 lisinopril 5 mg tablet 10 mg PO DAILY #90 tabs 05/31/22 08/26/22 Previous Rx's Medication Instructions Recorded nebulizers #1 ea 04/26/22 albuterol sulfate 90 mcg/actuation 1 inh inhalation PRN PRN 05/05/22 aerosol inhaler Respiratory Distress #8.5 grams atorvastatin 40 mg tablet 40 mg PO DAILY #90 tabs 05/05/22 clonazepam 0.5 mg tablet 0.5 mg PO 1XD PRN Anxiety #10 tabs 05/05/22 fluticasone 250 mcg-salmeterol 50 1 ea inhalation BID #60 ea 05/05/22 mcg/dose blistr powdr for inhalation (Advair Diskus) hydroxyzine HCl 50 mg tablet 50 mg PO DAILY PRN anxiety #90 tabs 05/05/22 metformin 1,000 mg tablet 1,000 mg PO DAILY #90 tabs 05/05/22 nebulizer and compressor #1 ea 05/05/22 fluoxetine 20 mg capsule 60 mg PO DAILY #270 caps 05/11/22 lisinopril 5 mg tablet 10 mg PO DAILY #90 tabs 05/31/22 Allergies Allergy/AdvReac Type Severity Reaction Status Date / Time adhesive AdvReac Skin Rash Verified 08/26/22 18:47 bupropion [From Wellbutrin] AdvReac Dizziness/L Verified 08/26/22 18:47 ighthead codeine AdvReac Nausea Verified 08/26/22 18:47 quetiapine [From Seroquel] AdvReac Dizziness/L Verified 08/26/22 18:47 ighthead General Stated Complaint: Chest Pain LOUANN: 3 Review of Systems Narrative: Per HPI PFSH All Active Problems Chest pain (Acute) Sialoadenitis (Acute) Herniated nucleus pulposus of lumbosacral region (Acute) COVID-19 (Acute) Medical History Asthma COPD (chronic obstructive pulmonary disease) BRANDON (generalized anxiety disorder) Hyperlipidemia Hypertension Post traumatic stress disorder (PTSD) Renal insufficiency Type II diabetes mellitus Surgical History History of cholecystectomy History of laminectomy (06/17/20) Left L3-4 laminotomy discectomy left L3, L4 nerve root decompression History of tonsillectomy and adenoidectomy Family History (Updated 04/12/22 @ 10:43 by Jaymie Wilson) Maternal Grandfather Asthma Son Asthma Depression Mother Heart disease Hypertension Brother Heart disease Sister Cancer Uterine Social History Smoking/Tobacco Use Status: Former Tobacco Use Tobacco: How many years used: 50 Smoking risk assessment performed?: Yes Alcohol Intake: current Alcohol Intake frequency: holidays/special occasions only Drug use: Never Substance use type: does not use Counseling given: No Adopted: No Caregiver/Support person: No Foster care: No Household members: children Housing: house Number of Children: 2 number of grandchildren: 5 Communication Needs: None Education Level: high school Do you need help understanding health information?: Rarely current occupation: Retired Pets and animals: No Sexually active: No Do you think of yourself as: straight/heterosexual Current gender identity: female What is your relationship status?: How often do you talk on the phone with friends or family?: three or more times per week How often do you get together with friends or relatives?: once per week Do you belong to any clubs or organized social groups?: no Panel score (0-1 are the most socially isolated patients): 1 What type of physical activity do you participate in: walking Duration: 15-30 minutes/day Frequency: 5-6 times per week Isabel/Jew: [employer] Special isabel needs: No Seatbelt use: always Helmet use: No Drive 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 HEENT: NC/AT. Normal facial exam. Eyes: Normal conjunctiva and sclera. Neck: Supple. Trachea midline. Lungs: Normal respiratory effort. Lungs are clear. Cor: RRR without murmur/gallop. Good radial pulses. Neuro: A+O x 3. Normal speech, mentation, gait. Cranial nerves II - XII grossly intact. No gross motor or sensory deficit. Ext: No C/C/E. Skin: Warm and dry without rash. Course Vital Signs Vital signs: Vital Signs Pulse 82 08/26/22 18:41 Blood Pressure 184/74 H 08/26/22 18:41 Pulse Oximetry 96 08/26/22 18:41 Pulse 82 08/26/22 18:41 Respiratory Effort Short of Breath 08/26/22 18:49 Blood Pressure 184/74 H 08/26/22 18:41 Blood Pressure Position Sitting 08/26/22 18:41 Pulse Oximetry 96 08/26/22 18:41 Oxygen Delivery Method Room Air 08/26/22 18:41 Oxygen Flow Rate 0 08/26/22 18:41
--- NOTE | 2022-08-26 19:15 | DI.RAD_ITS ---
Exam(s) XR CHEST 2V PA LATERAL EXAM: XR CHEST 2V PA LATERAL CLINICAL HISTORY: CP. TECHNIQUE: 2D digital imaging was performed. COMPARISON: CR,XR XR PORTABLE CHEST AP from 04/17/2022 FINDINGS: 2 views: Heart size is normal. The mediastinum is not widened. Lungs are clear. No infiltrates nor pleural effusions. IMPRESSION: No acute pulmonary findings. DATA REPOSITORY: RADIATION DOSE DELIVERED:
[2022-08-26 19:33] LABS: Abs Immature Grans 0.02 10^3/uL (0.0-0.06); Absolute Basophil Count 0.02 10^3/uL (0.0-0.2); Absolute Eosinophil Count 0.19 10^3/uL (0.0-0.7); Absolute Lymphocyte Count 1.62 10^3/uL (1.2-3.4); Absolute Monocyte Count 0.53 10^3/uL (0.1-0.8); Absolute Neutrophil Count 3.13 10^3/uL (1.2-6.7); Basophils % 0.4; Eosinophils % 3.4; HCT 33.2 % (36.0-46.0); HGB 10.6 g/dL (11.2-15.7); Immature Grans % 0.4; Lymphocytes % 29.4; MCH 27.2 pg (27.0-33.0); MCHC 31.9 % (32.0-36.0); MCV 85 fL (80-95); MPV 8.7 fL (8.0-11.0); Monocytes % 9.6; Neutrophils % 56.8; Platelet Count 274 10^3/uL (130-400); RBC 3.89 10^6/uL (3.93-5.22); RDW 14.5 % (11.7-14.6); RDW-SD 44.9 fL; WBC 5.51 10^3/uL (4.4-10.8)
--- NOTE | 2022-08-26 19:43 | DI.VRAD_ITS ---
PROCEDURE INFORMATION: Exam: XR Chest Exam date and time: 08/26/2022 19:25 Age: 72 years old Clinical indication: Pain; Chest pressure; Additional info: Cp TECHNIQUE: Imaging protocol: Radiologic exam of the chest. Views: 2 views. COMPARISON: CR XR PORTABLE CHEST AP 04/17/2022 17:27 FINDINGS: Lungs: No consolidation. Minor hyperinflation. Pleural spaces: No pleural effusion. No pneumothorax. Heart/Mediastinum: No cardiomegaly. Bones/joints: No acute fracture. Intraperitoneal space: Right upper quadrant clips, probable cholecystectomy. IMPRESSION: No acute cardiopulmonary pathology. Dictated and Authenticated by: Jemma Rolon MD. Ordering:COLLEEN Pham MD
[2022-08-26 20:03] LABS: ALT 34 U/L (14-59); AST 19 U/L (15-37); Albumin 3.6 g/dL (3.4-5.0); Alkaline Phosphatase 91 U/L (46-116); Anion Gap 7.7 mmol/L (3-11); BUN 27 mg/dL (7-18); Bilirubin, Total 0.3 mg/dL (0.2-1.0); CO2 26.3 mmol/L (21.0-32.0); CREATININE 1.2 mg/dL (0.55-1.02); Calcium 9.6 mg/dL (8.5-10.1); Chloride 105 mmol/L (98-107); Glucose 216 mg/dL (74-106); Potassium 4.4 mmol/L (3.5-5.1); Sodium 139 mmol/L (136-145); Troponin I < 50 ng/L (<or=60)
[2022-08-26 20:09] LABS: D-Dimer 594 ng/mlFEU (<500)
== END 2022-08-26 20:59 | disposition home or self-care (01) ==
PROVIDERS: Emergency Provider Emergency Medicine; PCP Nurse Practitioner
DX: R07.9 Chest pain, unspecified (principal); R06.02 Shortness of breath
CPT/HCPCS: 36415; 80053; 93005; 99284; 71046; 83735; 84484; 85025; 85379; 93010; 99283

== ENCOUNTER 2022-12-14 10:29 | Outpatient (CLI) | payer MEDICARE, SELFPAY ==
[2022-12-14 10:16] LABS: Abs Immature Grans 0.01 10^3/uL (0.0-0.06); Absolute Basophil Count 0.03 10^3/uL (0.0-0.2); Absolute Lymphocyte Count 1.19 10^3/uL (1.2-3.4); Absolute Monocyte Count 0.39 10^3/uL (0.1-0.8); Absolute Neutrophil Count 2.76 10^3/uL (1.2-6.7); Basophils % 0.7; Eosinophils % 4.4; HCT 35.3 % (36.0-46.0); HGB 11.1 g/dL (11.2-15.7); Immature Grans % 0.2; MCH 27.8 pg (27.0-33.0); MCHC 31.4 % (32.0-36.0); MCV 89 fL (80-95); MPV 8.3 fL (8.0-11.0); Monocytes % 8.5; Neutrophils % 60.2; Platelet Count 263 10^3/uL (130-400); RBC 3.99 10^6/uL (3.93-5.22); RDW-SD 42.4 fL; WBC 4.58 10^3/uL (4.4-10.8)
[2022-12-14 13:28] LABS: Calculated LDL 83 mg/dL (<100); Cholesterol 166 mg/dL (<200); HDL Cholesterol 60 mg/dL (40-60); TSH (W/Ref FT4) 1.18 uIU/mL (0.36-3.74); Triglyceride 119 mg/dL (<150); Vitamin B12 819 pg/mL (193-986)
[2022-12-15 11:05] LABS: Lyme Ab w Rflx to Lyme Confirm Negative (Negative)
[2022-12-16 21:05] LABS: Anaplasma phagocytophilum Negative (Negative); B. miyamotoi PCR Negative (Negative); Babesia divergens/MO-1 Negative (Negative); Babesia duncani Negative (Negative); Babesia microti Negative (Negative); Ehrlichia chaffeensis Negative (Negative); Ehrlichia ewingii/canis Negative (Negative); Ehrlichia muris eauclairensis Negative (Negative)
== END 2022-12-14 10:30 | disposition home or self-care (01) ==
LOC: LBO 10:29
PROVIDERS: PCP Nurse Practitioner; Visit Provider Nurse Practitioner
DX: E78.5 Hyperlipidemia, unspecified (principal); W57.XXXA Bitten or stung by nonvenomous insect and other nonvenomous arthropods, initial encounter; R41.9 Unspecified symptoms and signs involving cognitive functions and awareness; D64.9 Anemia, unspecified; E11.9 Type 2 diabetes mellitus without complications; I10 Essential (primary) hypertension; T14.8XXA Other injury of unspecified body region, initial encounter
CPT/HCPCS: 36415; 80061; 87798; 82607; 84443; 85025; 86618

== ENCOUNTER 2023-01-10 11:48 | Emergency (ER) | payer MEDICARE, SELFPAY ==
[2023-01-10 11:59] VITALS: BP 144/70; TEMP 36.7; O2SAT 97
--- NOTE | 2023-01-10 12:15 | RT.EKG_ITS ---
APPROVED REPORT Exam: Resting ECG Reason for Exam: weakness Patient Location: E HR:86 bpm ECG Measurements Heart Rate 86 AXIS NH 160 P 85 QRSd 89 QRS -56 QT 371 T 56 QTc 445 Conclusion Sinus rhythm...normal P axis, V-rate 60- 99 Left anterior fascicular block...axis(240,-40), init forces inf Anterior infarct, old...Q >40mS, abnormal ST-T, V2-V5
--- NOTE | 2023-01-10 12:15 | DI.RAD_ITS ---
Exam(s) XR CHEST 2V PA LATERAL EXAM: XR CHEST 2V PA LATERAL CLINICAL HISTORY: weakness TECHNIQUE: 2D digital imaging was performed of the chest. Two images were obtained. PA and lateral views were obtained. COMPARISON: CR,XR XR CHEST 2V PA LATERAL from 08/26/2022 FINDINGS: MEDIASTINUM: Normal. HEART: Normal. PULMONARY VASCULATURE: Normal. LUNGS: Clear. PLEURAL SPACE: No pleural effusion or pneumothorax. BONE:Within normal limits for the patient's age. OTHER FINDINGS:Normal. IMPRESSION: No acute pulmonary findings. DATA REPOSITORY: RADIATION DOSE DELIVERED:
--- NOTE | 2023-01-10 12:15 | DI.CT_ITS ---
Exam(s) CT HEAD WO EXAM: CT HEAD WO CLINICAL HISTORY: right head, ear and neck pain. TECHNIQUE: Imaging Protocol: Axial computed tomography images with coronal and sagittal reformatted images were created and reviewed COMPARISON: No exams were available for comparison FINDINGS: Ventricles and Extra axial spaces: Normal in size and morphology for the patient's age. Hemorrhage: None. Cerebral parenchyma: Normal. Midline shift: None. Brainstem/Cerebellum: Normal. Calvarium: Normal. The external and internal auditory canals are unremarkable. The middle ear is unr emarkable. Visualized Paranasal sinuses/Mastoids: Clear. Soft Tissues: Unremarkable. IMPRESSION: 1. No acute intracranial process. 2. Findings were discussed with the emergency department at 1:51 p.m. on 01/10/2023. RADIATION DOSE DELIVERED: 718.1mGy.cm Total DLP DATA REPOSITORY: All CT scans at this facility are submitted to the National Radiology Data Registry (NRDR) Dose Index Registry (DIR) with the [employer] (A[employer]). RADIATION OPTIMIZATION: All CT scans at this facility use at least one of these dose optimization te chniques: automated exposure control; mA and/or kV adjustment per patient size (includes targeted exa ms where dose is matched to clinical indication); or iterative reconstruction.
--- NOTE | 2023-01-10 12:38 | ED.GENADUL_ITS ---
Discharge Plan Disposition Patient Disposition: Home Discharge Details Clinical Impression: Otitis media, COVID-19 Primary Care Provider: Rima Fontenot ED Provider: Elda Zacarias Home Meds and New Rx's Prescriptions: New amoxicillin-pot clavulanate 875-125 mg tablet 1 tab PO Q12H Qty: 20 0RF prochlorperazine maleate [Compazine] 10 mg tablet 10 mg PO Q8H PRNQty: 10 0RF mometasone [Nasonex 24hr Allergy] 50 mcg/actuation spray,non-aerosol 2 spray intranasal DAILY Qty: 17 0RF Rx Instructions: administer into each nostril Continued albuterol sulfate 90 mcg/actuation HFA aerosol inhaler 1 inh INHALATION PRN PRN (Reason: Respiratory Distress) Qty: 8.5 12RF atorvastatin 40 mg tablet 40 mg PO DAILY Qty: 90 3RF fluticasone propion-salmeterol [Advair Diskus] 250-50 mcg/dose blister with device 1 ea INHALATION BID Qty: 60 12RF hydroxyzine HCl 50 mg tablet 50 mg PO DAILY PRN (Reason: anxiety) Qty: 90 3RF Patient Comments: not taking metformin 1,000 mg tablet 1,000 mg PO DAILY Qty: 90 3RF (DME) nebulizer and compressor Device See Rx Instructions .Route Qty: 1 0RF Rx Instructions: As directed fluoxetine 20 mg capsule 40 mg PO DAILY Qty: 270 1RF clonazepam 0.5 mg tablet 0.5 mg PO 1XD PRN (Reason: Anxiety) Qty: 20 0RF lisinopril 10 mg tablet 10 mg PO DAILY Qty: 90 3RF cholecalciferol (vitamin D3) 50 mcg (2,000 unit) capsule 50 mcg PO DAILY multivitamin Tablet 1 tab PO QAM (DME) nebulizers Misc See Rx Instructions .Route Qty: 1 0RF Rx Instructions: As directed, Q6 prn diclofenac sodium 1 % gel TOPICAL PRN PRN (Reason: Rash) Discharge Instructions Instructions: Ear Infection (ED), Viral Syndrome (ED) Additional Instructions: Take the air antibiotics to treat right ear infection Take the Nasonex daily Take Coricidin cough and cold for sinus congestion, Tylenol 650 every 4 hours, do not exceed 3 g daily Return earlier should you have new or worsening complaints From the onset of worsening symptoms you should quarantine for 5 days and wear a mask for 10 days after the onset of symptoms and until your symptoms resolve Return earlier should you develop new or worsening complaints Referrals: Rima Fontenot NP [Primary Care Provider] - Discharge Data Discharge Date/Time-TO BE ENTERED AT DEPARTURE: 01/10/23 14:16 Medical Decision Making 72-year-old female, alert and oriented, in discomfort, a month with worsening headache, denies history of headaches in the past, states predominantly on the right side now, pain with movement of the right side of her neck, denies fever today but states temp of 101 2 days ago Lungs clear to auscultation, cardiac rate rhythm regular, no meningismus, pupils equal round reactive to light and accommodation, uvula midline, bulging to right TM, mild erythema, mastoid tenderness patient is calm, strength and sensation intact distally, no rashes or lesions noted, no drainage or perforation to TM CT was ordered for evaluation of headache secondary to age and comorbidities and is negative for acute abnormality per radiology interpretation and review Covid test did return positive For remainder of labs do not show evidence of acute abnormality per my interpre tation and review Patient not a candidate for Paxlovid and is unsure as to onset of symptoms Encouraged supportive therapy Return precautions reviewed and patient expressed understanding, discharged home in stable condition with stable vitals Vitals: Pulse 88, respirations 16 HPI General Date/Time Provider Initiated Documentation: 01/10/23 11:50 . HPI Narrative: This 72-year-old female presents with right ear pain, headache, cough, history of COPD and diabetes, states her symptoms have been worsening over the course of the past month. States that her neck is very painful when she moves and on the right side. She denies new shortness of breath. She denies any current chest p ain. She states she has had a fever intermittently, Tmax of 101. This was 3 days ago. Denies any rashes or lesions. Related Data Home Medications Medication Instructions Recorded Confirmed diclofenac sodium 1 % topical gel applic topical PRN PRN Rash 02/06/22 11/29/22 cholecalciferol (vitamin D3) 50 50 mcg PO DAILY 04/26/22 01/10/23 mcg (2,000 unit) capsule multivitamin 1 tab PO QAM 04/26/22 01/10/23 nebulizers #1 ea 04/26/22 11/29/22 albuterol sulfate 90 mcg/actuation 1 inh inhalation PRN PRN 05/05/22 01/10/23 aerosol inhaler Respiratory Distress #8.5 grams atorvastatin 40 mg tablet 40 mg PO DAILY #90 tabs 05/05/22 01/10/23 fluticasone 250 mcg-salmeterol 50 1 ea inhalation BID #60 ea 05/05/22 01/10/23 mcg/dose blistr powdr for inhalation (Advair Diskus) hydroxyzine HCl 50 mg tablet 50 mg PO DAILY PRN anxiety #90 tabs 05/05/22 11/29/22 metformin 1,000 mg tablet 1,000 mg PO DAILY #90 tabs 05/05/22 01/10/23 nebulizer and compressor #1 ea 05/05/22 11/29/22 clonazepam 0.5 mg tablet 0.5 mg PO 1XD PRN Anxiety #20 tabs 08/30/22 01/10/23 fluoxetine 20 mg capsule 40 mg PO DAILY #270 caps 08/30/22 01/10/23 lisinopril 10 mg tablet 10 mg PO DAILY #90 tabs 08/30/22 01/10/23 amoxicillin 875 mg-potassium 1 tab PO Q12H #20 tabs 01/10/23 clavulanate 125 mg tablet mometasone 50 mcg/actuation nasal 2 spray intranasal DAILY #17 grams 01/10/23 spray (Nasonex 24hr Allergy) prochlorperazine maleate 10 mg 10 mg PO Q8H PRN #10 tabs 01/10/23 tablet (Compazine) Previous Rx's Medication Instructions Recorded nebulizers #1 ea 04/26/22 albuterol sulfate 90 mcg/actuation 1 inh inhalation PRN PRN 05/05/22 aerosol inhaler Respiratory Distress #8.5 grams atorvastatin 40 mg tablet 40 mg PO DAILY #90 tabs 05/05/22 fluticasone 250 mcg-salmeterol 50 1 ea inhalation BID #60 ea 05/05/22 mcg/dose blistr powdr for inhalation (Advair Diskus) hydroxyzine HCl 50 mg tablet 50 mg PO DAILY PRN anxiety #90 tabs 05/05/22 metformin 1,000 mg tablet 1,000 mg PO DAILY #90 tabs 05/05/22 nebulizer and compressor #1 ea 05/05/22 clonazepam 0.5 mg tablet 0.5 mg PO 1XD PRN Anxiety #20 tabs 08/30/22 fluoxetine 20 mg capsule 40 mg PO DAILY #270 caps 08/30/22 lisinopril 10 mg tablet 10 mg PO DAILY #90 tabs 08/30/22 amoxicillin 875 mg-potassium 1 tab PO Q12H #20 tabs 01/10/23 clavulanate 125 mg tablet mometasone 50 mcg/actuation nasal 2 spray intranasal DAILY #17 grams 01/10/23 spray (Nasonex 24hr Allergy) prochlorperazine maleate 10 mg 10 mg PO Q8H PRN #10 tabs 01/10/23 tablet (Compazine) Allergies Allergy/AdvReac Type Severity Reaction Status Date / Time adhesive AdvReac Skin Rash Verified 01/10/23 12:01 bupropion [From Wellbutrin] AdvReac Dizziness/L Verified 01/10/23 12:01 ighthead codeine AdvReac Nausea Verified 01/10/23 12:01 quetiapine [From Seroquel] AdvReac Dizziness/L Verified 01/10/23 12:01 ighthead General Stated Complaint: EarProblem LOUANN: 4 PFSH All Active Problems (Updated 01/10/23 @ 14:09 by JUAN F Bunn) Otitis media (Acute) Anxiety (Chronic) Type II diabetes mellitus (Acute) Hypertension (Chronic) Hyperlipidemia (Acute) Sialoadenitis (Acute) Herniated nucleus pulposus of lumbosacral region (Acute) COVID-19 (Acute) Medical History (Updated 01/10/23 @ 14:09 by JUAN F Bunn) Asthma COPD (chronic obstructive pulmonary disease) BRANDON (generalized anxiety disorder) Post traumatic stress disorder (PTSD) Renal insufficiency Surgical History (Updated 09/30/22 @ 16:13 by Aline Segovia RN) History of cholecystectomy History of laminectomy (06/17/20) Left L3-4 laminotomy discectomy left L3, L4 nerve root decompression History of tonsillectomy and adenoidectomy S/P breast biopsy, right (09/01/22[place] [facility] [place] with fibroadenomatous change Family History (Updated 04/12/22 @ 10:43 by Jaymie Wilson) Maternal Grandfather Asthma Son Asthma Depression Mother Heart disease Hypertension Brother Heart disease Sister Cancer Uterine Social History Smoking/Tobacco Use Status: Former Tobacco Use Tobacco: How many years used: 50 Smoking risk assessment performed?: Yes Alcohol Intake: current Alcohol Intake frequency: holidays/special occasions only Drug use: Never Substance use type: does not use Counseling given: No Adopted: No Caregiver/Support person: No Foster care: No Household members: children Housing: house Number of Children: 2 number of grandchildren: 5 Communication Needs: None Education Level: high school Do you need help understanding health information?: Rarely current occupation: Retired Pets and animals: No Sexually active: No Do you think of yourself as: straight/heterosexual Current gender identity: female What is your relationship status?: How often do you talk on the phone with friends or family?: three or more times per week How often do you get together with friends or relatives?: once per week Do you belong to any clubs or organized social groups?: no Panel score (0-1 are the most socially isolated patients): 1 What type of physical activity do you participate in: walking Duration: 15-30 minutes/day Frequency: 5-6 times per week Isabel/Taoism: Quaker Special isabel needs: No Seatbelt use: always Helmet use: No Drive intox or ride w/intox tractor trailer moving van driver: No Working smoke detector in home: Yes Fire extinguisher in home: Yes Carbon monox detector in home: Yes Do you feel safe at home: Yes Do you feel safe in your relationship?: Yes Course Vital Signs Vital signs: Vital Signs Temperature 36.7 C 01/10/23 11:59 Blood Pressure 144/70 H 01/10/23 11:59 Pulse Oximetry 97 01/10/23 11:59 Temperature 36.7 C 01/10/23 11:59 Temperature Source Skin 01/10/23 11:59 Respiratory Effort Normal 01/10/23 12:02 Blood Pressure 144/70 H 01/10/23 11:59 Blood Pressure Position Sitting 01/10/23 11:59 Pulse Oximetry 97 01/10/23 11:59 Oxygen Delivery Method Room Air 01/10/23 11:59 Oxygen Flow Rate 0 01/10/23 11:59 Pain Level 9 01/10/23 11:59
[2023-01-10 13:10] LABS: Abs Immature Grans 0.02 10^3/uL (0.0-0.06); Absolute Basophil Count 0.03 10^3/uL (0.0-0.2); Absolute Lymphocyte Count 0.61 10^3/uL (1.2-3.4); Absolute Monocyte Count 0.58 10^3/uL (0.1-0.8); Absolute Neutrophil Count 5.83 10^3/uL (1.2-6.7); Basophils % 0.4; Eosinophils % 1.4; HCT 34.9 % (36.0-46.0); HGB 11.3 g/dL (11.2-15.7); Immature Grans % 0.3; Lymphocytes % 8.5; MCH 28.3 pg (27.0-33.0); MCHC 32.4 % (32.0-36.0); MCV 88 fL (80-95); MPV 8.7 fL (8.0-11.0); Monocytes % 8.1; Neutrophils % 81.3; Platelet Count 254 10^3/uL (130-400); RBC 3.99 10^6/uL (3.93-5.22); RDW 12.8 % (11.7-14.6); RDW-SD 40.8 fL; WBC 7.17 10^3/uL (4.4-10.8)
[2023-01-10] MEDS: diphenhydrAMINE 50 MG/ML VIAL 12.5 MG IVP (13:17)
[2023-01-10] MEDS: ACETAMINOPHEN 1,000 MG/100 ML BTL 400 MG IVPB (13:17)
[2023-01-10 13:27] LABS: ALT 43 U/L (14-59); AST 22 U/L (15-37); Albumin 3.7 g/dL (3.4-5.0); Alkaline Phosphatase 97 U/L (46-116); Anion Gap 6.3 mmol/L (3-11); BUN 20 mg/dL (7-18); Bilirubin, Total 0.4 mg/dL (0.2-1.0); CO2 28.7 mmol/L (21.0-32.0); CREATININE 1.1 mg/dL (0.55-1.02); Chloride 99 mmol/L (98-107); Estimated GFR 53.06 (mL/min/1.73m2); Glucose 177 mg/dL (74-106); Potassium 4.5 mmol/L (3.5-5.1); Sodium 134 mmol/L (136-145); Total Protein 7.5 g/dL (6.4-8.2); Troponin I < 50 ng/L (<or=60)
[2023-01-10 13:47] LABS: Bilirubin Negative (Negative); Blood Negative (Negative); Clarity Clear (Clear); Glucose Negative (Negative); Ketones Negative (Negative); Leukocyte Esterase Negative (Negative); Nitrite Negative (Negative); Urobilinogen 0.2 mg/dL (Up to 0.2); pH 7.5 (5-8)
[2023-01-10 14:02] LABS: Influenza A PCR Negative (Negative); Influenza B PCR Negative (Negative); RSV PCR Negative (Negative)
[2023-01-10 14:03] LABS: Source Nasopharynx
[2023-01-10 14:04] LABS: COVID-19 PCR Positive (Negative)
== END 2023-01-10 14:16 | disposition home or self-care (01) ==
PROVIDERS: Emergency Provider Physician Assistant; PCP Nurse Practitioner
DX: H92.01 Otalgia, right ear (principal); R50.9 Fever, unspecified; R06.02 Shortness of breath; I44.4 Left anterior fascicular block; J44.9 Chronic obstructive pulmonary disease, unspecified; E11.9 Type 2 diabetes mellitus without complications; I10 Essential (primary) hypertension; E78.5 Hyperlipidemia, unspecified; Z79.84 Long term (current) use of oral hypoglycemic drugs; Z87.891 Personal history of nicotine dependence
CPT/HCPCS: 36415; 80053; 87637; 93005; 96374; 96375; 99284; 70450; 71046; 81003; 84484; 85025; 93010; J0131; J1200

== ENCOUNTER → 2023-03-14 02:32 | Outpatient (CLI) | payer MEDICARE, SELFPAY ==
--- NOTE | 2023-03-14 13:04 | DI.CTLCSR_ITS ---
Exam(s) CT CHEST LUNG CANCER SCREEN EXAM: CT CHEST LUNG CANCER SCREEN CLINICAL HISTORY: Screening for lung cancer,former smoker, z87.891 TECHNIQUE: Imaging Protocol: Axial computed tomography images with coronal and sagittal reformatted images were created and reviewed COMPARISON: CT CT CHEST PE CTA from 02/07/2022 FINDINGS: Tracheobronchial tree: Patent where visualized. Pulmonary parenchyma: Centrilobular emphysematous changes are present. Calcified granuloma are prese nt. No architectural distortion. Lung Nodules: There is a 2 mm nodule in the left upper lobe posteriorly. Mediastinum and Krista: No dominant adenopathy or fluid collection. The esophagus is unremarkable. Thyroid gland: Unremarkable. Lymph nodes: Unremarkable. Pleura: No effusion or pneumothorax. Heart: The heart is not dilated. Coronary artery calcification is present. No pericardial effusion. Aorta: Thoracic aorta non-dilated.Atherosclerosis is present. Upper abdomen: Status post cholecystectomy. Soft Tissues: Unremarkable. Bones: Within normal limits. IMPRESSION: 2 mm left upper lobe pulmonary nodule. Lung RADS Cat 2 - Benign Appearance / Behavior: Nodules with a very low likelihood of becoming a clin ically active cancer due to size or lack of growth Lung-RADS 1.0 CATEGORIES: Category 0 - Prior chest CT exam(s) being located for comparison. Category 1 - Annual screening in 12 months. No nodules or definitely benign nodules. Category 2 - Annual screening in 12 months. Benign appearance. Nodules with low likelihood of becomin g active cancer. Category 3 - 6-month follow-up. Probably benign. Short-term follow-up suggested. Nodules with low lik elihood of becoming active cancer. Category 4A - 3-month follow-up and CT/PET if >8 mm in size. Suspicious finding. Findings which requi re additional testing. Category 4B - Findings which require additional testing and tissue sampling. Suspicious finding. Category 4X - Category 3 or 4 nodules with additional features or imaging findings that increases the suspicion of malignancy. Modifier S- Potentially clinically significant finding. (Non lung cancer) RADIATION DOSE DELIVERED: Total DLP Total DLP DATA REPOSITORY: All CT scans at this facility are submitted to the National Radiology Data Registry (NRDR) Dose Index Registry (DIR) with the [employer] (ACR). RADIATION OPTIMIZATION: All CT scans at this facility use at least one of these dose optimization te chniques: automated exposure control; mA and/or kV adjustment per patient size (includes targeted exa ms where dose is matched to clinical indication); or iterative reconstruction.
== END ==
PROVIDERS: PCP Nurse Practitioner; Visit Provider Nurse Practitioner
DX: Z87.891 Personal history of nicotine dependence (principal); Z12.2 Encounter for screening for malignant neoplasm of respiratory organs; R91.1 Solitary pulmonary nodule
CPT/HCPCS: 71271

== ENCOUNTER → 2023-04-04 14:33 | Outpatient (CLI) | payer MEDICARE, SELFPAY ==
--- NOTE | 2023-04-04 14:00 | DI.RAD_ITS ---
Exam(s) XR CHEST 2V PA LATERAL EXAM: XR CHEST 2V PA LATERAL CLINICAL HISTORY: SHORTNESS OF BREATH R06.02 TECHNIQUE: 2D digital imaging was performed. COMPARISON: CT CT CHEST LUNG CANCER SCREEN from 03/14/2023 FINDINGS: HEART: Normal size. Aorta: Not dilated. PULMONARY VASCULATURE: Normal. LUNGS: Clear. PLEURAL SPACE: No pleural effusion or pneumothorax. BONE:Unremarkable for age. Soft tissues: Unremarkable. IMPRESSION: No acute abnormality. DATA REPOSITORY: RADIATION DOSE DELIVERED:
[2023-04-04 15:01] LABS: Abs Immature Grans 0.02 10^3/uL (0.0-0.06); Absolute Basophil Count 0.04 10^3/uL (0.0-0.2); Absolute Eosinophil Count 0.37 10^3/uL (0.0-0.7); Absolute Lymphocyte Count 1.48 10^3/uL (1.2-3.4); Absolute Monocyte Count 0.55 10^3/uL (0.1-0.8); Absolute Neutrophil Count 3.95 10^3/uL (1.2-6.7); Basophils % 0.6; Eosinophils % 5.8; HCT 36.6 % (36.0-46.0); HGB 11.5 g/dL (11.2-15.7); Immature Grans % 0.3; Lymphocytes % 23.1; MCH 27.6 pg (27.0-33.0); MCHC 31.4 % (32.0-36.0); MCV 88 fL (80-95); MPV 8.9 fL (8.0-11.0); Monocytes % 8.6; Neutrophils % 61.6; Platelet Count 344 10^3/uL (130-400); RBC 4.17 10^6/uL (3.93-5.22); RDW 13.3 % (11.7-14.6); RDW-SD 42.8 fL; WBC 6.41 10^3/uL (4.4-10.8)
[2023-04-04 15:09] LABS: ESR 16 mm/hr (0-30)
[2023-04-04 15:43] LABS: Total Iron Binding Capacity 427 ug/dL (250-450)
[2023-04-04 15:49] LABS: ALT 45 U/L (14-59); AST 23 U/L (15-37); Albumin 3.8 g/dL (3.4-5.0); Alkaline Phosphatase 97 U/L (46-116); Anion Gap 7.1 mmol/L (3-11); BUN 24 mg/dL (7-18); Bilirubin, Total 0.3 mg/dL (0.2-1.0); C-Reactive Protein < 0.05 mg/dL (0.0-0.3); CO2 28.9 mmol/L (21.0-32.0); CREATININE 1.5 mg/dL (0.55-1.02); Calcium 9.9 mg/dL (8.5-10.1); Chloride 102 mmol/L (98-107); Estimated GFR 36.34 (mL/min/1.73m2); Glucose 201 mg/dL (74-106); Lipase 152 U/L (16-77); Potassium 5.1 mmol/L (3.5-5.1); Sodium 138 mmol/L (136-145); TSH (W/Ref FT4) 0.91 uIU/mL (0.36-3.74); Total Protein 7.6 g/dL (6.4-8.2)
[2023-04-04 16:21] LABS: Vitamin D 25 Total 48.3 ng/mL (30-100)
[2023-04-04 16:26] LABS: Ferritin 29 ng/mL (8-252); Vitamin B12 1682 pg/mL (193-986)
[2023-04-04 21:47] LABS: Rheumatoid Factor 43.7 IU/mL (<12.0)
[2023-04-05 09:25] LABS: Lyme Ab w Rflx to Lyme Confirm Negative (Negative)
[2023-04-05 14:50] LABS: ANA Interpretation Positive (Negative); ANA Titer Pattern 1:320 Homogeneous
[2023-04-06 19:05] LABS: Anaplasma phagocytophilum Negative (Negative); B. miyamotoi PCR Negative (Negative); Babesia divergens/MO-1 Negative (Negative); Babesia duncani Negative (Negative); Babesia microti Negative (Negative); Ehrlichia chaffeensis Negative (Negative); Ehrlichia ewingii/canis Negative (Negative); Ehrlichia muris eauclairensis Negative (Negative)
== END ==
PROVIDERS: PCP Nurse Practitioner; Visit Provider Nurse Practitioner
DX: R06.02 Shortness of breath (principal); E11.9 Type 2 diabetes mellitus without complications; E55.9 Vitamin D deficiency, unspecified; E78.5 Hyperlipidemia, unspecified; I10 Essential (primary) hypertension; R53.83 Other fatigue; R11.0 Nausea; Z87.19 Personal history of other diseases of the digestive system
CPT/HCPCS: 36415; 80053; 82306; 83690; 85652; 87798; 71046; 82607; 82728; 83550; 84443; 85025; 86038; 86140; 86431; 86618

== ENCOUNTER → 2023-08-21 05:03 | Outpatient (CLI) | payer OTHER, SELFPAY ==
--- NOTE | 2023-08-21 08:00 | DI.MAMMO_ITS ---
Exam(s) MAMMO SCREENING EXAM: MAMMO SCREENING CLINICAL HISTORY: screening,Z12.39. TECHNIQUE: Bilateral full field digital CC and MLO mammographic images were obtained with 3D tomosyn thesis and utilizing computer aided detection (CAD). COMPARISON: Prior mammograms were reviewed. There has been interval biopsy microcalcifications posteriorly in the left breast since the mammogram 1 year ago. FINDINGS: No new significant left breast findings. In the right breast there is a biopsy marker device in the region of the posteriorly located microcal cifications, as seen on the MLO view. There is also a group of microcalcifications posterolaterally seen on the CC view located 12 cm in fr om the nipple but difficult to determine if this is the same group of microcalcifications as the biop sy marker device is not seen in the vicinity of these calcifications and in the these very posteriorl y located microcalcifications were not included in the field of view of the prior CC views. On the MLO view the microcalcifications are not increased from MLO view of 08/12/2022. No new architectural distortion or skin thickening-traction IMPRESSION: 1. No radiographic evidence of malignancy in left breast. 2. Biopsy marker device associated with the microcalcifications posteriorly on the MLO view but not o n the CC view. Recommend that this patient return for an additional exaggerated CC view of the poste rior right breast to determine if the biopsy marker device is within the same group of microcalcifica tions as it appears to be in on the MLO view. BI-RADS Category 0 - Assessment Incomplete: Need additional imaging evaluation Breast Density - Category B - Scattered areas of fibroglandular density Breast density Category C or D implies that the patient has dense breast tissue. Dense breast tissue can make it harder to find cancer on a mammogram. Dense breast tissue is also associated with an incr eased risk of breast cancer. This information about the result of the mammogram report was provided to the patient to raise their awareness. Use this report when you speak with the patient about their risks for breast cancer, which includes their family history. At that time, you may recommend additional screening tests (Ultrasoun d or MRI) as these tests may add significant information. A negative radiographic report should not delay biopsy if a dominant or clinically suspicious mass is present. Up to ten percent of cancers are not identified on mammography. A negative report may reinforce clinical impression. Adenosis and dense breasts may obscure an underlying neoplasm. False positive reports average 6 to 10%. Patient will receive a letter notifying them of these results.
== END ==
PROVIDERS: PCP Nurse Practitioner; Visit Provider Nurse Practitioner
DX: Z12.31 Encounter for screening mammogram for malignant neoplasm of breast (principal); R92.8 Other abnormal and inconclusive findings on diagnostic imaging of breast
CPT/HCPCS: 77063; 77067

== ENCOUNTER → 2023-08-29 05:26 | Outpatient (CLI) | payer OTHER, SELFPAY ==
--- NOTE | 2023-08-29 | DI.MAMMO_ITS ---
Exam(s) MAMMO SCREEN CALL BACK UNI EXAM: MAMMO SCREEN CALL BACK UNI CLINICAL HISTORY: GROUP OF MICROCALCIFICATIONS RT BREAST, BIOPSY MARKER NOT SEEN R92.8 ABNL. TECHNIQUE: Craniocaudal and mediolateral oblique Full Field Digital Mammography views of the right b reast with Computer Aided Diagnosis. COMPARISON: Comparison is made with prior examinations. FINDINGS: Mammography/Tomosynthesis: Masses/Architectural Distortion: None seen. Microcalcifictions: No suspicious pleomorphic-type are seen. The additional views were obtained and s how stable calcifications in the upper outer right breast on the exaggerated craniocaudad view. Ther e is a biopsy clip amongst the calcifications which correspond to the calcifications seen on the MLO view. The calcifications are stable compared to the prior examinations. Skin Thickening/Nipple Retraction: None. IMPRESSION: 1. No evidence of malignancy is noted. 2. Unless there is more urgent need, follow-up screening mammography is recommended, as per [employer] guidelines. 3. The findings were discussed with the patient on the date of the examination. BI-RADS Category 2 - Benign Findings Breast Density - Category B - Scattered areas of fibroglandular density Breast density Category C or D implies that the patient has dense breast tissue. Dense breast tissue can make it harder to find cancer on a mammogram. Dense breast tissue is also associated with an incr eased risk of breast cancer. This information about the result of the mammogram report was provided to the patient to raise their awareness. Use this report when you speak with the patient about their risks for breast cancer, which includes their family history. At that time, you may recommend additional screening tests (Ultrasoun d or MRI) as these tests may add significant information. A negative radiographic report should not delay biopsy if a dominant or clinically suspicious mass is present. Up to ten percent of cancers are not identified on mammography. A negative report may reinforce clinical impression. Adenosis and dense breasts may obscure an underlying neoplasm. False positive reports average 6 to 10%. Patient will receive a letter notifying them of these results.
== END ==
PROVIDERS: PCP Nurse Practitioner; Visit Provider Nurse Practitioner
DX: Z12.31 Encounter for screening mammogram for malignant neoplasm of breast (principal)
CPT/HCPCS: 77063; 77067

== ENCOUNTER 2023-09-08 16:19 | Outpatient (REF) | payer OTHER, SELFPAY | END 2023-09-08 16:20 | disposition home or self-care (01) | LOC: LBN 16:19 | PROVIDERS: PCP Nurse Practitioner; Visit Provider Student in an Organized Health Care Education/Training Program | DX: N18.9 Chronic kidney disease, unspecified (principal); R30.0 Dysuria | CPT/HCPCS: 87077; 87086; 87186 ==

== ENCOUNTER 2023-10-12 09:55 | Outpatient (REF) | payer OTHER, SELFPAY ==
--- OUTSIDE RECORDS SUMMARY | 2023-10-13 09:57 | XMS_ITS | Continuity of Care Document ---
Author Name Unknown Organization [facility] Address [address] [place] [id number] Care Team Providers Care State Comptroller Name Role Phone Francisca Mnotero APRN Primary Care Physician [phone] Encounter Date(s): 08/28/23 - 08/28/[address] [address] Discharge Disposition: Home or Self Care Attending Physician: Francisca Montero APRN Admitting Physician: Francisca Montero APRN Allergies, Adverse Reactions, Alerts Substance Criticality Severity Reaction Reaction Severity Status codeine sulfate GI Reaction Ac tive Adhesive Bandage Hives Act monique SEROquel Angioedema Active Wellbutrin Auditory hallucination Active Assessment and Plan Diagnostic Tests Pending * Urine Culture 08/28/23 Immunizations Given and Recorded Vaccine Date Status Refusal Reason tetanus/diphth/pertuss (Tdap) adult/adol 1 02/11/20 Given tetanus/diphth/pertuss (Tdap) adult/adol 04/10/10 Recorded tetanus/diphth/pertuss (Tdap) adult/adol 2 04/10/10 Recorded influenza virus vaccine, inactivated 3 02/11/20 Gi larisa influenza virus vaccine, inactivated 4 04/09/19 Gi larisa influenza virus vaccine, inactivated 5 02/09/18 Gi larisa influenza virus vaccine, inactivated 6 01/02/17 Re corded influenza virus vaccine, inactivated 01/02/17 Kojo rded pneumococcal 23-polyvalent vaccine 7 02/09/18 Give n pneumococcal 23-polyvalent vaccine 8 03/14/05 Kojo rded pneumococcal 23-polyvalent vaccine 03/14/05 Record ed pneumococcal 13-valent conjugate vaccine 08/28/14 Recorded pneumococcal 13-valent conjugate vaccine 9 08/28/14 Recorded 1Result Comment: verified by JUDY Paez 2Result Comment: duplicate 3Result Comment: verified by JUDY Paez 4Result Comment: verified by BELLA Pham 5Result Comment: Verified by Philippe Henderson CMA 6Result Comment: duplicate 7Result Comment: Verified by Philippe Henderson CMA 8Result Comment: duplicate 9Result Comment: duplicate Medications Advair Diskus 250 mcg-50 mcg inhalation powder 1 puffs, Inhalation, 2 times/day, rinse mouth and throat after use, # 1 EA, 0 Refill(s), Pharmacy: [facility] #[id number], 170, cm, 01/20/22 10:57:00 EDT, Height/Length, 58.9, kg, 05/21/21 18:35:00 EST, Weight Dosing Start Date: 01/27/22 Status: Ordered atorvastatin 40 mg oral tablet 1 tab, Oral, Daily, # 90 tab, 1 Refill(s), Pharmacy: [facility] [facility] [address] [facility] [address], 170, cm, 10/04/21 13:56:00 EDT, Height/Length, 58.9, kg, 05/21/21 18:35:00 EST, Weight Dosing Start Date: 10/05/21 Status: Ordered calcium (as carbonate)-vitamin D 600 mg-800 intl units oral tablet, chewable 1 tab, Chewed, Daily, # 60 tab, 0 Refill(s), Pharmacy: [facility] Start Date: 03/22/18 Status: Ordered clonazePAM 0.5 mg oral tablet See Instructions, PRN anxiety, 1 tab Oral as needed for severe anxiety (max 1 tab a day), # 10 tab,0 Refill(s), Pharmacy: [facility] #[id number], 170, cm, 01/20/22 10:57:00 EDT, Height/Length, 58.9, kg, 05/21/21 18:35:00 EST, Weight Dosing Start Date: 01/27/22 Status: Ordered DuoNeb 0.5 mg-2.5 mg/3 mL inhalation solution 3 mL, NEB, 4 times/day, # 30 EA, 0 Refill(s), Pharmacy: [facility] [facility] [address], 170, cm, 01/12/21 11:07:00 EDT, Height/Length, 58.9, kg, 05/21/21 18:35:00 EST, Weight Dosing Start Date: 08/13/21 Status: Ordered FLUoxetine 20 mg oral tablet 1 tab, Oral, At bedtime daily, # 30 tab, 2 Refill(s), Pharmacy: [facility] #[id number], 170, cm, 01/20/22 10:57:00 EDT, Height/Length, 58.9, kg, 05/21/21 18:35:00 EST, Weight Dosing Start Date: 01/20/22 Status: Ordered FLUoxetine 60 mg oral tablet 1 tab, Oral, Daily, # 30 tab, 0 Refill(s), Pharmacy: [facility] #[id number], 170, cm, 01/20/22 10:57:00 EDT, Height/Length, 58.9, kg, 05/21/21 18:35:00 EST, Weight Dosing Start Date: 01/27/22 Status: Ordered hydrOXYzine hydrochloride 50 mg oral tablet 1 tab, Oral, Daily, PRN if needed for anxiety, # 30 tab, 0 Refill(s), Pharmacy: [facility] [facility] [address], 170, cm, 10/04/21 13:56:00 EDT, Height/Length, 58.9, kg, 05/21/21 18:35:00 EST, Weight Dosing Start Date: 11/02/21 Status: Ordered lisinopril 10 mg oral tablet 1 tab, Oral, Daily, # 90 tab, 2 Refill(s), Pharmacy: [facility] [facility] [address], 170, cm, 10/04/21 13:56:00 EDT, Height/Length, 58.9, kg, 05/21/21 18:35:00 EST, Weight Dosing Start Date: 10/04/21 Status: Ordered lisinopril 5 mg oral tablet 1 tab, Oral, Daily, # 90 tab, 0 Refill(s), Pharmacy: [facility] #[id number], 170, cm, 01/20/22 10:57:00 EDT, Height/Length, 58.9, kg, 05/21/21 18:35:00 EST, Weight Dosing Start Date: 01/27/22 Status: Ordered metFORMIN 1000 mg oral tablet 1 tab, Oral, 2 times/day, in the am and pm with meals, # 180 tab, 0 Refill(s), Pharmacy: [facility] #[id number], 170, cm, 01/20/22 10:57:00 EDT, Height/Length, 58.9, kg, 05/21/21 18:35:00 EST, Weight Dosing Start Date: 01/27/22 Status: Ordered NDC Discontinued-aspirin 81 mg oral tablet 1 tab, Oral, Daily, 0 Refill(s) Start Date: 03/24/17 Status: Ordered Proventil HFA 90 mcg/inh inhalation aerosol 2 puffs, Inhalation, 4 times/day, PRN as needed for wheezing, # 1 EA, 0 Refill(s), Pharmacy: [facility] #[id number], 170, cm, 01/20/22 10:57:00 EDT, Height/Length, 58.9, kg, 05/21/21 18:35:00 EST, Weight Dosing Start Date: 01/27/22 Status: Ordered triamcinolone 0.1% topical ointment 1 eusebio, Topical, 3 times/day, # 30 g, 0 Refill(s) Start Date: 03/24/17 Status: Ordered Voltaren 1% topical gel 2 g, Topical, 4 times/day, PRN pain, for neck and shoulders, # 100 g, 0 Refill(s), Pharmacy: [facility], 170, cm, 01/12/21 11:07:00 EDT, Height/Length, 58.9, kg, 05/21/21 18:35:00 EST, Weight Dosing Start Date: 08/13/21 Status: Ordered Problem List Condition Confirmation Course Effective Dates Status H ealth Status Informant COPD (CHRONIC OBSTRUCTIVE PULMONARY DISEASE) - GOLD STAGE 2 Confirmed 01/22/15 Active DYSURIA Confirmed 05/19/16 Active Full code status Confirmed Active GENERALIZED ANXIETY DISORDER Confirmed 09/13/12 Active Hyperlipidemia Confirmed Active HYPERTENSION Confirmed Active ASTHMA, PERSISTENT, MILD Confirmed 05/27/13 Active PTSD (post-traumatic stress disorder) Confirmed Active Herniated nucleus pulposus, lumbar Confirmed Active Renal insufficiency Confirmed Active SIALOADENITIS - SEEING ENT Confirmed 05/28/16 Active TOBACCO USE Confirmed 08/28/14 Active DM TYPE 2 (DIABETES MELLITUS, TYPE 2) Confirmed 06/15/04 Active VITAMIN D DEFICIENCY Confirmed 04/30/14 Active Procedures Procedure Date Related Diagnosis Body Site Status COLLECTION VENOUS BLOOD VENIPUNCTURE 08/28/23 Completed Left L3-4 laminotomy discect pritesh left L3, L4 nerve root decompression 1 06/17/20 Completed Cholecystectomy with explora tion of common duct Completed Tonsillectomy and adenoidectomy Completed 1Auto updated by Procedure update script. Procedure Date: 17-JUN-2020 10:17:54.00 Results Laboratory List Name Date Protein/Creatinine Ratio, Urine Random Urinalysis, Complete, with Culture Refle x, if Indicated 08/28/23 Urine Reflexed Microscopic 08/28/23 Complete Blood Count without Differentia l 08/28/23 Parathyroid Hormone, Intact 08/28/23 Renal Function Panel 08/28/23 .Estimated Glomerular Filtration Rate 08/28/23 Most recent to oldest [Reference Range]: 1 Culture Indicated? Yes 1 *NA* (08/28/23 11:17 AM) WBC [3.98-10.04 x10^3/mcL] 4.94 x10^3/mc L (08/28/23 11:15 AM) RBC [3.93-5.22 x10^6/mcL] 4.27 x10^6/mcL (08/28/23 11:15 AM) BUN [6-26 mg/dL] 31 mg/dL *HI* (08/28/23 11:15 AM) Color Yellow *NA* (08/28/23 11:17 AM) WBCs [0-5 /mcL] 6-10 /mcL *ABN* (08/28/23 11:17 AM) Glucose Level [70-99 mg/dL] 153 mg/dL 2 *HI* (08/28/23 11:15 AM) Potassium Level [3.5-5.1 mmol/L] 5.5 mmo l/L *HI* (08/28/23 11:15 AM) MCV [82.0-100.8 fL] 89.2 fL (08/28/23 11:15 AM) Urobilinogen [0.2 EU/dL] 0.2 EU/dL *NA* (08/28/23 11:17 AM) Hyaline Casts [0-2] 0-2 (08/28/23 11:17 AM) Bilirubin [Negative] Negative 3 *NA* (08/28/23 11:17 AM) Ketones [Negative mg/dL] Negative mg/dL *NA* (08/28/23 11:17 AM) MCHC [31.0-34.6 g/dL] 30.2 g/dL *LOW* (08/28/23 11:15 AM) Sodium Level [136-143 mmol/L] 137 mmol/L (08/28/23 11:15 AM) RBCs [0-2 /mcL] 6-10 /mcL *ABN* (08/28/23 AM) Leukocyte Esterase [Negative] Negative *NA* (08/28/23 AM) Nitrite [Negative] Positive *ABN* (08/28/23 11 AM) Glucose [Negative mg/dL] >=1000 mg/dL *ABN* (08/28/23 AM) Hct [34.1-44.9 %] 38.1 % (08/28/23 11:15 AM) Bacteria [Negative /mcL] Many /mcL *ABN* (08/28/23 AM) Calcium Level [8.3-10.1 mg/dL] 10.3 mg/d L *HI* (08/28/23 11:15 AM) Phosphorus Level [2.5-4.9 mg/dL] 3.5 mg/ dL (08/28/23 11:15 AM) Albumin Level [3.4-4.9 g/dL] 3.8 g/dL (08/28/23 11:15 AM) Protein [Negative] Negative *NA* (08/28/23 AM) MCH [25.6-32.2 pg] 26.9 pg (08/28/23 11:15 AM) Hgb [11.2-15.7 g/dL] 11.5 g/dL (08/28/23 11:15 AM) Occult Blood [Negative] Negative *NA* (08/28/23 11:17 AM) MPV [8.97-11.96 fL] 9.30 fL (08/28/23 11:15 AM) Specific [place] [1.003-1.030] 1.027 (08/28/23 11:17 AM) Platelets [139-379 x10^3/mcL] 306 x10^3/ mcL (08/28/23 11:15 AM) CO2 [21-32 mmol/L] 26 mmol/L (08/28/23 11:15 AM) Squamous Epithelial Cells [None Seen /mc L] Occ /mcL (08/28/23 11:17 AM) RDW [11.7-14.4 %] 13.7 % (08/28/23 11:15 AM) UA pH 5.5 *NA* (08/28/23 11:17 AM) Creatinine, Random Urine 68.60 mg/dL 4 *NA* (08/28/23 11:17 AM) Chloride Level [101-111 mmol/L] 107 mmol /L (08/28/23 11:15 AM) Creatinine, Enzymatic [0.50-1.07 mg/dL] 1.19 mg/dL *HI* (08/28/23 11:15 AM) Total Protein, Random Urine [0-18 mg/dL] 7 mg/dL (08/28/23 11:17 AM) NRBCs 0.0 /100(WBCs) *NA* (08/28/23 11:15 AM) Absolute NRBCs [<=0.01 x10^3/mcL] 0.00 x 10^3/mcL (08/28/23 11:15 AM) BUN/Creat Ratio 26.1 *NA* (08/28/23 11:15 AM) Clarity [Clear] Clear *NA* (08/28/23 11:17 AM) Protein/Creatinine Ratio [0.00-0.20 mg/m gCr] 0.10 mg/mgCr (08/28/23 11:17 AM) eGFR CKD-EPI [>=60 mL/min/1.73m2] 48 mL/ min/1.73m2 *LOW* (08/28/23 11:15 AM) PTH, Intact [18.4-88.0 pg/mL] 72.6 pg/mL (08/28/23 11:15 AM) Anion Gap [2.0-11.0] 4.0 (08/28/23 11:15 AM) 1Result Comment: A culture will be performed on this sample based on reflex criteria. 2Interpretive Data: Impairment: Fasting glucose 100-125 mg/dL Diabetes Mellitus: Fasting glucose >=126 mg/dL Random glucose >=200 mg/dL 3Interpretive Data: Positive UA bilirubin results should be confirmed with serum bilirubin result. 4Interpretive Data: Reference range not applicable. Social History Social History Type Response Smoking Status Current every day sm oker; Type: Cigarettes; Tobacco use per day: pt state 1 pk last about 3 days; Number of cigarettes per day 10; entered on: 01/20/22 Sex Female Patient Care team information Care Team Personnel Name: Francisca Montero APRN Position: Provider - Advanced Practitioner Member Role: Primary Care Provider Address: Address: [address] [place] [phone]- Care Team Related Persons Name: SULEMA POLLACK Address: Home [address] [place] [phone] Name: PASCUAL BARTHOLOMEW Address: [address] [phone]
[2023-10-13 10:02] LABS: Bilirubin Negative (Negative); Blood Negative (Negative); Clarity Clear (Clear); Glucose >=1000 mg/dL (Negative); Ketones Negative (Negative); Leukocyte Esterase Negative (Negative); Nitrite Negative (Negative); Urobilinogen 0.2 mg/dL (Up to 0.2); pH 5.5 (5-8)
[2023-10-13 10:07] LABS: Bacteria Rare HPF (Negative); C & S Indicated? No; Casts Negative LPF (Negative); Crystals Negative HPF (Negative); Epithelial Cells Rare HPF (Negative); Mucus Negative (Negative); RBC 0-2 HPF (0-2); WBC 0-2 HPF (0-5)
[2023-10-13 11:16] LABS: COMMENT (LAB VIEW ONLY) 65.03 mg/dL; PROTEIN < 6.0 mg/dL
== END 2023-10-12 09:56 | disposition home or self-care (01) ==
LOC: LBN 09:55
PROVIDERS: PCP Nurse Practitioner; Visit Provider Internal Medicine Nephrology
DX: N18.9 Chronic kidney disease, unspecified (principal); R82.998 Other abnormal findings in urine
CPT/HCPCS: 81003; 81015; 82565; 84156

== ENCOUNTER 2023-10-20 01:42 | Outpatient (CLI) | payer OTHER, SELFPAY ==
[2023-10-20 13:46] LABS: Abs Immature Grans 0.02 10^3/uL (0.0-0.06); Absolute Basophil Count 0.02 10^3/uL (0.0-0.2); Absolute Eosinophil Count 0.25 10^3/uL (0.0-0.7); Absolute Monocyte Count 0.51 10^3/uL (0.1-0.8); Absolute Neutrophil Count 3.61 10^3/uL (1.2-6.7); Basophils % 0.3 %; Eosinophils % 4.3 %; HCT 36.9 % (36.0-46.0); HGB 11.3 g/dL (11.2-15.7); Immature Grans % 0.3 %; Lymphocytes % 24.1 %; MCH 26.6 pg (27.0-33.0); MCHC 30.6 % (32.0-36.0); MCV 87 fL (80-95); MPV 9.2 fL (8.0-11.0); Monocytes % 8.8 %; Neutrophils % 62.2 %; Platelet Count 316 10^3/uL (130-400); RBC 4.25 10^6/uL (3.93-5.22); RDW 14.5 % (11.7-14.6); RDW-SD 45.6 fL; WBC 5.81 10^3/uL (4.4-10.8)
[2023-10-20 13:51] LABS: COMMENT (LAB VIEW ONLY) 83.53 mg/dL; PROTEIN 8.8 mg/dL
[2023-10-20 14:13] LABS: ALT 44 U/L (14-59); AST 23 U/L (15-37); Albumin 3.7 g/dL (3.4-5.0); Alkaline Phosphatase 107 U/L (46-116); Anion Gap 8.9 mmol/L (3-11); BUN 21 mg/dL (7-18); Bilirubin, Total 0.31 mg/dL (0.2-1.0); CO2 27.1 mmol/L (21.0-32.0); CREATININE 1.2 mg/dL (0.55-1.02); Calcium 9.2 mg/dL (8.5-10.1); Chloride 105 mmol/L (98-107); Glucose 91 mg/dL (74-106); Potassium 4.5 mmol/L (3.5-5.1); Sodium 141 mmol/L (136-145); TSH (W/Ref FT4) 0.61 uIU/mL (0.36-3.74); Total Protein 7.4 g/dL (6.4-8.2)
[2023-10-20 23:01] LABS: Thyroglobulin Antibody <15 U/mL (<=60); Thyroperoxidase Antibody 60 U/mL (<=60)
[2023-10-20 23:19] LABS: HBs Antibody, Quant <3.1 mIU/mL (See Note); Hepatitis B Surface Ab Negative (See Note)
[2023-10-20 23:35] LABS: Hepatitis B Surface Ag Negative (Negative)
[2023-10-20 23:58] LABS: Hepatitis C Ab w Rflx HCV PCR Negative (Negative)
[2023-10-21 00:04] LABS: Hep B Core Antibody Negative (Negative)
[2023-10-23 10:50] LABS: C3 Complement 142 mg/dL (81-157); C4 Complement 36 mg/dL (13-39)
[2023-10-23 11:18] LABS: TB Interpretation Negative (Negative)
[2023-10-23 12:55] LABS: Lyme Ab w Rflx to Lyme Confirm Negative (Negative)
[2023-10-23 12:58] LABS: Syphilis Serology (RPR) Negative (Negative)
[2023-10-23 14:08] LABS: RNP Ab, IgG <6.0 CU (<20.0); Ro60 Ab, IgG <7.0 CU (<20.0); SS-A/Ro, IgG <2.3 CU (<20.0); SS-B (La) Ab, IgG <3.3 CU (<20.0); Sm (Smith) Ab, IgG <8.0 CU (<20.0); dsDNA Ab, IgG <22.0 IU/mL (<27.0)
[2023-10-23 15:33] LABS: C-Peptide 6.9 ng/mL (1.1 - 4.4)
[2023-10-23 16:35] LABS: Leukemia/Lymphoma by FC (Blood (See below)
[2023-10-31 12:03] LABS: Misc Referral (UVM) See Comments
== END 2023-10-20 01:43 | disposition home or self-care (01) ==
LOC: LBO 01:42
PROVIDERS: PCP Nurse Practitioner; Visit Provider Student in an Organized Health Care Education/Training Program
DX: M62.81 Muscle weakness (generalized) (principal); R76.8 Other specified abnormal immunological findings in serum; M70.61 Trochanteric bursitis, right hip; M70.62 Trochanteric bursitis, left hip; R53.81 Other malaise; M75.42 Impingement syndrome of left shoulder
CPT/HCPCS: 36415; 80053; 86376; 86704; 86706; 86803; 87340; 87468; 87798; 88185; 82565; 84156; 84443; 84681; 85025; 86160; 86225; 86235; 86480; 86592; 86618; 88184; 88189

== ENCOUNTER 2023-12-02 18:44 | Emergency (ER) | payer OTHER, SELFPAY ==
[2023-12-02 18:51] VITALS: BP 144/54; PULSE 89; RESP 18; TEMP 36.9; O2SAT 98
--- NOTE | 2023-12-02 18:59 | ED.GENADUL_ITS ---
Discharge Plan Disposition Patient Disposition: Home Condition: Stable Discharge Details Clinical Impression: Contusion of right foot Primary Care Provider: Rima Fontenot ED Provider: Woody Wilson Home Meds and New Rx's Prescriptions: Continued (DME) nebulizer and compressor Device See Rx Instructions .Route Qty: 1 0RF Rx Instructions: As directed clonazepam 0.5 mg tablet 0.5 mg PO 1XD PRN (Reason: Anxiety) Qty: 20 0RF lisinopril 10 mg tablet 10 mg PO DAILY Qty: 90 3RF fluoxetine 20 mg capsule See Rx Instructions .ROUTE .COMPLEX Qty: 270 1RF Dose Instruction: TAKE THREE CAPSULES BY MOUTH EVERY DAY Rx Instructions: TAKE THREE CAPSULES BY MOUTH EVERY DAY multivitamin Tablet 1 tab PO QAM (DME) nebulizers Misc See Rx Instructions .Route Qty: 1 0RF Rx Instructions: As directed, Q6 prn albuterol sulfate 90 mcg/actuation HFA aerosol inhaler 1 inh INHALATION PRN PRN (Reason: Respiratory Distress) Qty: 8.5 12RF atorvastatin 40 mg tablet 40 mg PO DAILY Qty: 90 3RF fluticasone propion-salmeterol [Advair Diskus] 250-50 mcg/dose blister with device 1 ea INHALATION BID Qty: 60 12RF metformin 1,000 mg tablet 1,000 mg PO DAILY Qty: 90 3RF acetaminophen 500 mg tablet 1,000 mg PO TID PRN lidocaine 4 % cream 1 applic topical QID PRN diclofenac sodium 1 % gel 2 g topical QID PRN Jardiance 25 mg tablet 25 mg PO DAILY Qty: 90 1RF mometasone [Nasonex 24hr Allergy] 50 mcg/actuation spray,non-aerosol 2 spray intranasal DAILY Qty: 17 0RF Rx Instructions: administer into each nostril Discharge Instructions Instructions: Taking care of bruises Additional Instructions: You were seen in the emergency department for the contusion of your right foot, there is no fracture on your x-rays, we are wrapping your foot with an Piter wrap, please rest, ice, compress and elevate as often as possible. Use the provided crutches, partially weight-bear as tolerated, take 650 mg of Tylenol every 6 hours like clockwork. Please return for any severe increase in pain and swelling. Referrals: Rima Fontenot, MAINTENANCE MECHANIC [Primary Care Provider] - Discharge Data Discharge Date/Time-TO BE ENTERED AT DEPARTURE: 12/02/23 19:47 HPI General Date/Time Provider Initiated Documentation: 12/02/23 18:59 . HPI Narrative: 73 year-old female presents to ED today by POV/ambulating with antalgic gait with a chief complaint of granddaughter dropped a rock on her R dorsal foot with bruising, pain with ambulation with onset earlier today. Quality described as aching pain, no radiation to numbness, tingling, inability to weight-bear, calf pain, fibular head pain. Patient is R foot dominant. Severity is described as moderate. Palliating factors include piter wrap and icing at home did not resolve the pain completely. Provoking factors include nothing specific. Patient not anticoagulated. Related Data Home Medications ?Medication ?Instructions ?Recorded ?Confirmed multivitamin 1 tab PO QAM 04/26/22 12/02/23 nebulizers #1 ea 04/26/22 12/02/23 nebulizer and compressor #1 ea 05/05/22 12/02/23 mometasone 50 mcg/actuation nasal 2 spray intranasal DAILY #17 grams 01/10/23 12/02/23 spray (Nasonex 24hr Allergy) albuterol sulfate 90 mcg/actuation 1 inh inhalation PRN PRN 04/04/23 12/02/23 aerosol inhaler Respiratory Distress #8.5 grams atorvastatin 40 mg tablet 40 mg PO DAILY #90 tabs 04/04/23 12/02/23 fluticasone 250 mcg-salmeterol 50 1 ea inhalation BID #60 ea 04/04/23 12/02/23 mcg/dose blistr powdr for inhalation (Advair Diskus) metformin 1,000 mg tablet 1,000 mg PO DAILY #90 tabs 04/04/23 12/02/23 acetaminophen 500 mg tablet 1,000 mg PO TID PRN 08/31/23 12/02/23 diclofenac sodium 1 % topical gel 2 g topical QID PRN 08/31/23 12/02/23 lidocaine 4 % topical cream 1 applic topical QID PRN 08/31/23 12/02/23 empagliflozin 25 mg tablet 25 mg PO DAILY #90 tabs 09/04/23 12/02/23 (Jardiance) fluoxetine 20 mg capsule See Rx Instructions .Route 09/07/23 12/02/23 .COMPLEX #270 caps lisinopril 10 mg tablet 10 mg PO DAILY #90 tabs 09/07/23 12/02/23 clonazepam 0.5 mg tablet 0.5 mg PO 1XD PRN Anxiety #20 tabs 10/16/23 12/02/23 Previous Rx's ?Medication ?Instructions ?Recorded nebulizers #1 ea 04/26/22 nebulizer and compressor #1 ea 05/05/22 mometasone 50 mcg/actuation nasal 2 spray intranasal DAILY #17 grams 01/10/23 spray (Nasonex 24hr Allergy) albuterol sulfate 90 mcg/actuation 1 inh inhalation PRN PRN 04/04/23 aerosol inhaler Respiratory Distress #8.5 grams atorvastatin 40 mg tablet 40 mg PO DAILY #90 tabs 04/04/23 fluticasone 250 mcg-salmeterol 50 1 ea inhalation BID #60 ea 04/04/23 mcg/dose blistr powdr for inhalation (Advair Diskus) metformin 1,000 mg tablet 1,000 mg PO DAILY #90 tabs 04/04/23 empagliflozin 25 mg tablet 25 mg PO DAILY #90 tabs 09/04/23 (Jardiance) fluoxetine 20 mg capsule See Rx Instructions .Route 09/07/23 .COMPLEX #270 caps lisinopril 10 mg tablet 10 mg PO DAILY #90 tabs 09/07/23 clonazepam 0.5 mg tablet 0.5 mg PO 1XD PRN Anxiety #20 tabs 10/16/23 Allergies Allergy/AdvReac Type Severity Reaction Status Date / Time adhesive AdvReac Skin Rash Verified 12/02/23 18:55 bupropion (From Wellbutrin) AdvReac Dizziness/L Verified 12/02/23 18:55 ighthead codeine AdvReac Nausea Verified 12/02/23 18:55 quetiapine (From Seroquel) AdvReac Dizziness/L Verified 12/02/23 18:55 ighthead General Stated Complaint: Orthopedic LOUANN: 4 Review of Systems All systems reviewed & are unremarkable except as noted in HPI and below Exam Narrative Exam Narrative: GENERAL APPEARANCE: Well-nourished, non-toxic, awake and alert, atraumatic, no acute distress. SKIN: Warm, pink, dry, intact, without rashes/lesions/ulcerations. HEAD: Normocephalic, atraumatic, normal hair distribution for gender/age. EYES: Normal conjunctiva, no exudates on lids/lashes. ENT: Nares patent, no circumoral cyanosis, no facial swelling NECK: Supple, trachea midline, painless cervical ROM. LUNGS/CHEST: Non-labored respirations, normal A/P diameter, symmetrical expansion, no chest wall deformity HEART (CV/PV): Regular rate, R posterior tibialis pulse 2+, no peripheral edema, no JVD. ABDOMEN: Soft, non-distended, no guarding. MSK: Normal ROM, no swelling/deformity to bilateral UEs or LEs, moving all extremities without weakness, no cyanosis, spine midline without tenderness, normal curvature. R FOOT: diffuse ecchymosis and mild swelling to the right dorsal foot, brisk capillary refill in all toes, able to dorsi/plantarflex, no malleoli or tenderness, no fibular head tenderness or unilateral calf swelling. NEURO: Mental Status AAOx4 - alert to person, place, time, events No facial droop, no forehead involvement. Motor: No focal weakness - strength 5/5 in bilateral UEs and LEs, proximal and distal, symmetric. Sensory: sensation intact to light touch globally. Gait antalgic. PSYCH: euthymic, cooperative, pleasant, appropriate speech Course Vital Signs Vital signs: Vital Signs Temperature 36.9 C 12/02/23 18:51 Pulse 89 12/02/23 18:51 Respiratory Rate 18 12/02/23 18:51 Blood Pressure 144/54 H 12/02/23 18:51 Pulse Oximetry 98 12/02/23 18:51 Temperature 36.9 C 12/02/23 18:51 Temperature Source Tympanic 12/02/23 18:51 Pulse 89 12/02/23 18:51 Respiratory Rate 18 12/02/23 18:51 Respiratory Effort Normal, Non-Labored 12/02/23 18:55 Blood Pressure 144/54 H 12/02/23 18:51 Blood Pressure Position Sitting 12/02/23 18:51 Pulse Oximetry 98 12/02/23 18:51 Oxygen Delivery Method Room Air 12/02/23 18:51 Oxygen Flow Rate 0 12/02/23 18:51 Pain Level 7 12/02/23 18:51 Medical Decision Making This dictation utilizes [id number] dictation software and may contain unedited grammatical errors. 73 year-old female presents to ED today by POV/ambulating with antalgic gait with a chief complaint of granddaughter dropped a rock on her R dorsal foot with bruising, pain with ambulation with onset earlier today. Quality described as aching pain, no radiation to numbness, tingling, inability to weight-bear, calf pain, fibular head pain. Patient is R foot dominant. Severity is described as moderate. Palliating factors include piter wrap and icing at home did not resolve the pain completely. Provoking factors include nothing specific. Patients' medical history: COPD, anxiety, CKD, T2DM, hypertension. Family and social history: noncontributory. Pertinent exam findings / vital signs include diffuse ecchymosis and mild swelling to the right dorsal foot, brisk capillary refill in all toes, able to dorsi/plantarflex, no malleoli or tenderness, no fibular head tenderness or unilateral calf swelling. Differential / pathologies of concern include fracture, contusion. Diagnostic studies of: -XR R foot / ankle - no acute fracture seen. Interventions of: -piter wrap, crutches. ED Course/Assessment/Plan: 73-year-old female seen after her granddaughter dropped a rock on the dorsum of her right foot, she has a large contusion, no fracture on x-ray of the foot or ankle, counseled on gentle compression and RICE therapy taking adequate dosing of Tylenol and ibuprofen and provided crutches for pain relief as she has significant pain with ambulation. Strict return criteria for any sign of neurovascular compromise. Findings not consistent with fracture, expanding hematoma. Disposition of contusion of right foot. Patient verbalized understanding of the plan and return to ED criteria and engaged in shared decision making. Medical Records Medical records reviewed: Yes I reviewed the patient's medical records. Imaging Data Radiologic Study: Attestation: I personally reviewed and interpreted this imaging study as follows: Imaging: X-Ray Radiologist's impression: EXAM: XR FOOT RT COMPLETE CLINICAL HISTORY: R foot/ankle injury- dropped a rock on it. TECHNIQUE: 2D digital imaging was performed. COMPARISON: No exams were available for comparison FINDINGS: 3 views No evidence of acute fracture or diastasis of the Lisfranc joint. Great toe metatarsophalangeal joint appears un remarkable. Bone density normal. No osseous lesions. No radiopaque foreign bodies. No inferior calcaneal spur. No pes planus. IMPRESSION: No acute osseous findings in the right foot. Radiologic Study #2: Attestation: I personally reviewed and interpreted this imaging study as follows: Imaging: X-Ray Radiologist's impression: EXAM: XR ANKLE RT COMPLETE CLINICAL HISTORY: R foot/ankle injury- dropped a rock on it. TECHNIQUE: 2D digital imaging was performed. COMPARISON: No exams were available for comparison FINDINGS: 3 views No evidence of acute fracture or widening the ankle mortise. Talar dome unremarkable. Bone density is age-appropriate. Minimal if any significant degenerative changes. No significant osseous lesions. No radiopaque foreign bodies. IMPRESSION: No significant osseous findings in the ankle. Quality:SDOH Health Related Social Needs: Health related social needs inadequate housing Health related social needs details none, PFSH All Active Problems (Updated 12/02/23 @ 19:43 by JUAN F Okeefe) Contusion of right foot (Acute) Incontinence (Acute) CKD (chronic kidney disease) (Chronic) Anxiety (Chronic) Type II diabetes mellitus (Acute) Hypertension (Chronic) Hyperlipidemia (Acute) Sialoadenitis (Acute) Herniated nucleus pulposus of lumbosacral region (Acute) COVID-19 (Acute) Medical History (Updated 12/02/23 @ 19:43 by JUAN F Okeefe) Renal insufficiency Post traumatic stress disorder (PTSD) BRANDON (generalized anxiety disorder) COPD (chronic obstructive pulmonary disease) Asthma Surgical History (Updated 09/30/22 @ 16:13 by Aline Segovia RN) [place], [place]09[place]22[place] [facility] [place] with fibroadenomatous [place] History of tonsillectomy and adenoidectomy History of cholecystectomy History of laminectomy (06/17/20) Left L3-4 laminotomy discectomy left L3, L4 nerve root decompression Family History (Updated 04/12/22 @ 10:43 by Jaymie Wilson) Maternal Grandfather Asthma Son Asthma Depression Mother Heart disease Hypertension Brother Heart disease Sister Cancer Uterine Social History Smoking/Tobacco Use Status: Former Tobacco Use Tobacco: How many years used: 50 Smoking risk assessment performed?: Yes Alcohol Intake: current Alcohol Intake frequency: holidays/special occasions only Drug use: Never Substance use type: does not use Counseling given: No Adopted: No Caregiver/Support person: No Foster care: No Household members: children Housing: house Number of Children: 2 number of grandchildren: 5 Communication Needs: None Education Level: high school Do you need help understanding health information?: Rarely current occupation: Retired Pets and animals: No Sexually active: No Do you think of yourself as: straight/heterosexual Current gender identity: female What is your relationship status?: How often do you talk on the phone with friends or family?: three or more times per week How often do you get together with friends or relatives?: once per week Do you belong to any clubs or organized social groups?: no Panel score (0-1 are the most socially isolated patients): 1 What type of physical activity do you participate in: walking Duration: 15-30 minutes/day Frequency: 5-6 times per week Isabel/Moravian: Buddhism Special isabel needs: No Seatbelt use: always Helmet use: No Drive intox or ride w/intox vibratory pile driver: No Working smoke detector in home: Yes Fire extinguisher in home: Yes Carbon monox detector in home: Yes Do you feel safe at home: Yes Do you feel safe in your relationship?: Yes
[2023-12-02] MEDS: Acetaminophen 500 MG TAB 1000 MG PO (19:10)
--- NOTE | 2023-12-02 19:29 | DI.RAD_ITS ---
Exam(s) XR ANKLE RT COMPLETE EXAM: XR ANKLE RT COMPLETE CLINICAL HISTORY: R foot/ankle injury- dropped a rock on it. TECHNIQUE: 2D digital imaging was performed. COMPARISON: No exams were available for comparison FINDINGS: 3 views No evidence of acute fracture or widening the ankle mortise. Talar dome unremarkable. Bone density is age-appropriate. Minimal if any significant degenerative changes. No significant osseous lesions . No radiopaque foreign bodies. IMPRESSION: No significant osseous findings in the ankle. DATA REPOSITORY: RADIATION DOSE DELIVERED:
--- NOTE | 2023-12-02 19:30 | DI.RAD_ITS ---
Exam(s) XR FOOT RT COMPLETE EXAM: XR FOOT RT COMPLETE CLINICAL HISTORY: R foot/ankle injury- dropped a rock on it. TECHNIQUE: 2D digital imaging was performed. COMPARISON: No exams were available for comparison FINDINGS: 3 views No evidence of acute fracture or diastasis of the Lisfranc joint. Great toe metatarsophalangeal join t appears un remarkable. Bone density normal. No osseous lesions. No radiopaque foreign bodies. N o inferior calcaneal spur. No pes planus. IMPRESSION: No acute osseous findings in the right foot. DATA REPOSITORY: RADIATION DOSE DELIVERED:
== END 2023-12-02 19:47 | disposition home or self-care (01) ==
PROVIDERS: Emergency Provider Physician Assistant; PCP Nurse Practitioner
DX: S90.31XA Contusion of right foot, initial encounter (principal); W22.8XXA Striking against or struck by other objects, initial encounter
CPT/HCPCS: 99284; 73610; 73630; 99283

== ENCOUNTER 2023-12-22 14:43 | Outpatient (CLI) | payer OTHER, SELFPAY ==
[2023-12-22 14:28] LABS: Albumin 3.7 g/dL (3.4-5.0); Anion Gap 8.6 mmol/L (3-11); BUN 23 mg/dL (7-18); CO2 26.4 mmol/L (21.0-32.0); CREATININE 1.3 mg/dL (0.55-1.02); Calcium 9.9 mg/dL (8.5-10.1); Chloride 101 mmol/L (98-107); Estimated GFR 43.15 (mL/min/1.73m2); Glucose 155 mg/dL (74-106); PHOSPHORUS 3.8 mg/dL (2.6-4.7); Potassium 4.9 mmol/L (3.5-5.1); Sodium 136 mmol/L (136-145)
== END 2023-12-22 14:44 | disposition home or self-care (01) ==
LOC: LBO 14:43
PROVIDERS: PCP Nurse Practitioner; Visit Provider Internal Medicine Nephrology
DX: E87.5 Hyperkalemia (principal); I10 Essential (primary) hypertension; E11.29 Type 2 diabetes mellitus with other diabetic kidney complication; N18.31 Chronic kidney disease, stage 3a
CPT/HCPCS: 36415; 80069

== ENCOUNTER 2023-12-27 15:40 | Outpatient (REF) | payer OTHER, SELFPAY | END 2023-12-27 15:41 | disposition home or self-care (01) | LOC: LBN 15:40 | PROVIDERS: PCP Nurse Practitioner; Visit Provider Nurse Practitioner | DX: N89.8 Other specified noninflammatory disorders of vagina (principal) | CPT/HCPCS: 87480; 87510; 87660 ==

== ENCOUNTER 2024-03-14 14:10 | Outpatient (CLI) | payer OTHER, SELFPAY ==
[2024-03-14 14:16] LABS: Abs Immature Grans 0.04 10^3/uL (0.0-0.06); Absolute Basophil Count 0.02 10^3/uL (0.0-0.2); Absolute Lymphocyte Count 1.53 10^3/uL (1.2-3.4); Absolute Monocyte Count 0.59 10^3/uL (0.1-0.8); Absolute Neutrophil Count 3.56 10^3/uL (1.2-6.7); Basophils % 0.3 %; Eosinophils % 3.4 %; HCT 39.7 % (36.0-46.0); HGB 12.2 g/dL (11.2-15.7); Immature Grans % 0.7 %; Lymphocytes % 25.8 %; MCH 27.2 pg (27.0-33.0); MCHC 30.7 % (32.0-36.0); MCV 88 fL (80-95); MPV 8.6 fL (8.0-11.0); Monocytes % 9.9 %; Neutrophils % 59.9 %; Platelet Count 291 10^3/uL (130-400); RBC 4.49 10^6/uL (3.93-5.22); RDW 14.4 % (11.7-14.6); RDW-SD 46.1 fL; WBC 5.94 10^3/uL (4.4-10.8)
[2024-03-14 14:27] LABS: BUN 25 mg/dL (7-18); CREATININE 1.3 mg/dL (0.55-1.02); Calcium 9.3 mg/dL (8.5-10.1); Chloride 104 mmol/L (98-107); Estimated GFR 43.15 (mL/min/1.73m2); Glucose 201 mg/dL (74-106); Potassium 4.6 mmol/L (3.5-5.1); Sodium 139 mmol/L (136-145)
== END 2024-03-14 14:11 | disposition home or self-care (01) ==
LOC: LBO 14:15
PROVIDERS: PCP Nurse Practitioner; Visit Provider Emergency Medicine
DX: I10 Essential (primary) hypertension (principal); R06.02 Shortness of breath
CPT/HCPCS: 36415; 80048; 85025

== ENCOUNTER 2024-03-18 01:30 | Outpatient (CLI) | payer OTHER, SELFPAY ==
--- NOTE | 2024-03-18 07:30 | DI.CTLCSR_ITS ---
Exam(s) CT CHEST LUNG CANCER SCREEN EXAM: CT CHEST LUNG CANCER SCREEN CLINICAL HISTORY: Screening for lung cancer,former smoker, z87.891 TECHNIQUE: Imaging Protocol: Axial computed tomography images with coronal and sagittal reformatted images were created and reviewed. Computer aided detection (CAD) was utilized. COMPARISON: CT CT CHEST PE CTA from 02/07/[address] CHEST LUNG CANCER SCREEN from 03/14/2023 FINDINGS: Tracheobronchial tree: Patent where visualized. No bronchiectasis. Pulmonary parenchyma: No consolidation or dominant measurable mass. Mild centrilobular emphysematous changes are present in the lungs. There are calcified granuloma present. Lung Nodules: The 2 mm nodule in the left upper lobe posteriorly is unchanged (series 2, image 36). No new pulmonary nodules are present. Mediastinum and Krista: No dominant adenopathy or fluid collection. The esophagus is unremarkable. Thyroid gland: Unremarkable. Lymph nodes: Unremarkable. Pleura: No effusion or pneumothorax. Heart: The heart is not dilated. Single-vessel coronary artery calcification is present. No pericard ial effusion. Aorta: Thoracic aorta non-dilated.Atherosclerotic calcification is present. Upper abdomen: Status post cholecystectomy. Soft Tissues: Unremarkable. Bones: Within normal limits. There is a lucency seen again seen in the right glenoid. There is no co rtical disruption or periosteal reaction. Its appearance suggest a benign lesion. There has been ve ry mild interval growth since the prior examination. It measures 2.3 cm compared to 2.1 cm on the pr ior examination. MRI of the shoulder should be considered for further characterization. IMPRESSION: Stable left upper lobe pulmonary nodule. No new pulmonary nodules. Lung RADS Cat 2 - Benign Appearance / Behavior: Nodules with a very low likelihood of becoming a clin ically active cancer due to size or lack of growth Lung-RADS 1.0 CATEGORIES: Category 0 - Prior chest CT exam(s) being located for comparison. Category 1 - Annual screening in 12 months. No nodules or definitely benign nodules. Category 2 - Annual screening in 12 months. Benign appearance. Nodules with low likelihood of becomin g active cancer. Category 3 - 6-month follow-up. Probably benign. Short-term follow-up suggested. Nodules with low lik elihood of becoming active cancer. Category 4A - 3-month follow-up and CT/PET if >8 mm in size. Suspicious finding. Findings which requi re additional testing. Category 4B - Findings which require additional testing and tissue sampling. Suspicious finding. Category 4X - Category 3 or 4 nodules with additional features or imaging findings that increases the suspicion of malignancy. Modifier S- Potentially clinically significant finding. (Non lung cancer) Unexpected findings RADIATION DOSE DELIVERED: 29.29mGy.cm Total DLP 29.29mGy.cmTotal DLP DATA REPOSITORY: All CT scans at this facility are submitted to the National Radiology Data Registry (NRDR) Dose Index Registry (DIR) with the [employer] (ACR). RADIATION OPTIMIZATION: All CT scans at this facility use at least one of these dose optimization te chniques: automated exposure control; mA and/or kV adjustment per patient size (includes targeted exa ms where dose is matched to clinical indication); or iterative reconstruction.
== END 2024-03-18 01:50 ==
LOC: DI 01:30
PROVIDERS: PCP Nurse Practitioner; Visit Provider Nurse Practitioner
DX: Z87.891 Personal history of nicotine dependence (principal); Z12.2 Encounter for screening for malignant neoplasm of respiratory organs; R91.1 Solitary pulmonary nodule
CPT/HCPCS: 71271

== ENCOUNTER 2024-03-25 04:52 | Outpatient (CLI) | payer OTHER, SELFPAY ==
[2024-03-25] MEDS: Inhaler, Assist Device 1 EACH MC (14:43)
[2024-03-25] MEDS: Levalbuterol HFA 15 GM INH 4 PUFF IH (14:43)
--- NOTE | 2024-03-25 15:26 | W.PFT ---
Date of service: 03/25/24 Time of Service: 13:07 Pulmonary Function Test Result Indications: Dyspnea Interpretation Spirometry: There is moderate airflow limitation. Significant brnchodilator response Lung Volumes: Air trapping and hyperinflation Diffusion Capacity: Normal diffusion Airway Pressure: Increased airways resistance Impression Moderate airflow obstruction with air trapping and a normal diffusion Clinical Correlation therefore is recommended.
== END 2024-03-25 04:53 | disposition home or self-care (01) ==
LOC: RT 04:52
PROVIDERS: PCP Nurse Practitioner; Visit Provider Emergency Medicine
DX: R06.02 Shortness of breath (principal)
CPT/HCPCS: 94060; 94726; 94729

== ENCOUNTER 2024-05-27 00:52 | Outpatient (CLI) | payer MEDICARE, SELFPAY ==
--- NOTE | 2024-05-27 13:55 | W.NUTRFU ---
Date of service: 05/27/24 Time of Service: 13:00 Nutrition Note NOTE: Dionna arrived for referred nutrition visit with her great grand daughter. A1c recently increased from 7.3-7.9% and triggered conversation with HCP and referral made. Dionna lives with her daughter and great/grandchildren. Finds was living on her own before this and finding it difficult financially. Daughter receives SNAP benefits but finds this often doesn't last the month. She denies having to skip any meals due to food insecurity but did mention eating less at some meals to ensure there was enough for everyone else. Dx with diabetes over 20 years ago per Dionna. Takes 1,000mg metformin daily along with empagliflozin. CKD in her PMH with last GFR at 43.5 in February. She comments she watches high potassium foods - gets labs q 3 months. Not a picky eater - [place] and likes veggies. Gets frustrated that her grandkids are picky with veggies and often can be a factor in what is made for meals. From her eating pattern discription, she is a grazer - snacking more than eating meals. Per diet interview, usual meal pattern is low in protein, high in added sugar and can be low in fiber most of the time. We focused on these 3 aspects of her diet, what to aim for and how to track. Along with this, general review of CHO foods and serving sizes with guidance on aiming for ~10servings of better quality cho daily (less ritz crackers refined carbs and trying triscuit crackers or even veggies. - does have ill fitting dentures that also impact her diet textures (hasn't been eating salads and avoids nuts and seeds due to this which can be a deterrent for eating healthier. Recommendations: -reviewed with dionna, keeping added sugar <30g per day, keeping fiber at least 25g per day and trying to hit at least 60g protein per day with ~10servings carb foods from the list we reviewed. -recommend vitamin D lab and supplement if <40 -recommend urine albumin to creatinine ratio to further gauge kidney fxn -recommend dental referral for help with dentures and being able to eat crunchy foods Dionna knows she can contact me with any questions, need for more resources or for any follow ups she feels would help steer her diet in the right direction. Time Spent in Nutritional Counseling and Treatment: 25 min
== END 2024-05-27 00:53 | disposition home or self-care (01) ==
LOC: DS 00:52
PROVIDERS: PCP Nurse Practitioner; Visit Provider Dietitian, Registered
DX: E11.9 Type 2 diabetes mellitus without complications (principal)
CPT/HCPCS: 00123; 97802

== ENCOUNTER 2024-06-17 01:34 | Outpatient (CLI) | payer MEDICARE, SELFPAY ==
--- NOTE | 2024-06-17 07:15 | DI.MRI_ITS ---
Exam(s) MR UPPER JOINT RT WO/W EXAM: MR UPPER JOINT RT WO/W CLINICAL HISTORY: LESION BONE RT SHOULDER,M89.9,F/U ABNL CHEST CT. TECHNIQUE: Multiplanar multisequence MRI was performed. COMPARISON: Chest CT from 2021 and recent exam from 18 March 2024 FINDINGS: BONES: There is no fracture or contusion pattern. The there is a fluid signal lesion noted in the glenoid. Is mildly expansile. There is a small amou nt of postcontrast enhancement in the inferior glenoid.. The CT shows a similar lesion in the left g lenoid which has the appearance of degenerative cysts. JOINTS:The acromioclavicular joint shows moderate spurring. The glenohumeral joint shows severe degenerative changes. There is a large osteophyte from the infer ior border of the humeral head. There are severe degenerative changes of the glenoid with marked car tilage thinning extending down to bone. TENDONS: Supraspinatus: Unremarkable. Infraspinatus: Unremarkable. Subscapularis: Unremarkable. Teres Minor: Unremarkable. Biceps and [place]: Unremarkable. MUSCLES: Unremarkable. SOFT TISSUES: Unremarkable. BURSAE: Subacromial and subdeltoid bursae shows trace fluid.. IMPRESSION: Lesion seen on CT has a cystic appearance on MRI although there is a small focus of postcontrast enha ncement in the inferior glenoid. Findings right likely represent large degenerative cysts. Similar findings are present in the left glenoid on CT. The lesion has increased in size compared to prior e xams. Biopsy should be considered. Unexpected findings DATA REPOSITORY:
[2024-06-17] MEDS: Normal Saline Flush 10 ML SYR IVP (12:49)
[2024-06-17] MEDS: Gadoterate meglumine 20 ML SYRINGE 16 ML IVP (12:50)
== END 2024-06-17 01:54 ==
LOC: DI 01:34
PROVIDERS: PCP Nurse Practitioner; Visit Provider Nurse Practitioner
DX: M89.9 Disorder of bone, unspecified (principal)
CPT/HCPCS: 73223

== ENCOUNTER 2024-07-17 16:03 | Outpatient (CLI) | payer MEDICARE, SELFPAY ==
--- NOTE | 2024-07-17 13:15 | DI.RAD_ITS ---
Exam(s) XR SHOULDER RT COMPLETE 2+V EXAM: XR SHOULDER RT COMPLETE 2+V CLINICAL HISTORY: RIGHT SHOULDER PAIN. TECHNIQUE: 2D digital imaging was performed. COMPARISON: MR MR UPPER JOINT RT WO/W from 06/17/2024 FINDINGS: Two views No evidence of fracture or dislocation. There is advanced osteoarthritic degenerative change in the glenohumeral joint with significant joint space narrowing and a prominent ayon-type osteophyte on th e inferior articular surface of the humeral head. There are also prominent degenerative subarticular cysts in the osseous glenoid. The subacromial space is not diminished and there are no abnormal sanjuanita cifications within the subacromial space. The AC joint exhibits moderate degenerative change. IMPRESSION: Advanced osteoarthritic degenerative changes in the glenohumeral joint, as described above. No significant narrowing of the subacromial space. DATA REPOSITORY: RADIATION DOSE DELIVERED:
== END 2024-07-17 16:04 | disposition home or self-care (01) ==
LOC: DIORS 16:03
PROVIDERS: PCP Nurse Practitioner; Referring Provider Nurse Practitioner; Visit Provider Student in an Organized Health Care Education/Training Program
DX: M19.011 Primary osteoarthritis, right shoulder; E11.65 Type 2 diabetes mellitus with hyperglycemia; N18.30 Chronic kidney disease, stage 3 unspecified; Z87.891 Personal history of nicotine dependence
CPT/HCPCS: 99214; 73030

== ENCOUNTER 2024-07-24 13:35 | Outpatient (CLI) | payer MEDICARE, SELFPAY ==
--- NOTE | 2024-07-24 13:30 | RT.EKG_ITS ---
APPROVED REPORT Exam: Resting ECG Reason for Exam: chest pain intermittently Patient Location: O HR:88 bpm ECG Measurements Heart Rate 88 AXIS RI 161 P 76 QRSd 94 QRS -61 QT 374 T 58 QTc 453 Conclusion Sinus rhythm...normal P axis, V-rate 50- 99 Left anterior fascicular block...axis(240,-40), init forces inf Anteroseptal infarct, age indeterminate...Q >35mS, T neg, V1-V2
== END 2024-07-24 13:36 | disposition home or self-care (01) ==
LOC: DI.KIM 13:35
PROVIDERS: PCP Nurse Practitioner; Visit Provider Nurse Practitioner
DX: R07.9 Chest pain, unspecified (principal)
CPT/HCPCS: 93010

== ENCOUNTER 2024-08-01 00:52 | Outpatient (CLI) | payer MEDICARE, SELFPAY ==
--- NOTE | 2024-08-01 07:30 | DI.NM_ITS ---
APPROVED REPORT Exam: Pharmacologic Patient Location: Out-Patient Room/Bed: Stress Nurse: Page Shane RN Ordering Provider:FAUSTOMAITE SORTOE, Contact Number: [phone] BMI: 27.09 Baseline Rhythm: Sinus Rhythm Indications: Intermittent chest pain, DM, HTN, HLD Medical History Medical History: Renal insuffiency, PTSD, BRANDON, COPD, asthma, CKD, HLD, DMT2, HTN Cardiac Medications: Albuterol sulfate, atorvastatin, clonazepam, fluoxetine, advair discus, glimeper [place], ipratropium-albuterol, lisinopril, metformin, multivitamin Allergies: Adhesive, bupropion, codeine, quetiapine Cardiac Risk Factors: Family hx, HTN, HLD, diabetes, asthma, COPD, former smoker Previous Cardiac Procedures: Cardiac cath Pretest Chest Pain Characteristics: Mild chest tightness Exercise History: Sedentary Physical Disabilities: None Lung Sounds: Clear to auscultation Heart Sounds: Regular Stress Test Details Test: Pharmacologic stress was paired with low level exercise. Reason for pharmacologic stress test: physical limitation. Nuclear Acquisition: Rest Tc-99m/Stress Tc-99m 1 day Rest Isotope: Tc-99m Sestamibi. Dose: 10.0 Date: 08/01/2024 Injection Time: 0900 Stress Isotope: Tc-99m Sestamibi. Dose: 30.0 Date: 08/01/2024 Injection Time: 1122 HR Resting HR Supine: 70 bpm Max Heart Rate (APMHR): 145 bpm Resting HR Standin bpm Target HR (85% APMHR): 123 bpm Max HR Achieved: 110 bpm % of APMHR: 76 Recovery HR: 86 bpm BP Resting BP Supine: 140/68 mmHg Resting BP Standin/54 mmHg Max BP: 140/68 mmHg Recovery BP: 130/62 mmHg ECG Resting ECG: Sinus Rhythm Ectopy: None Stress ECG: Sinus Tachycardia ST Change: Nondiagnostic low heart rate Arrhythmia: None Recovery ECG: Sinus Rhythm Recovery ST Change: Nondiagnostic low heart rate Recovery Arrhythmia: None Clinical Stress Symptoms: Mild dizziness, mild SOB, mild chest tightness Angina Score: Non-Limiting Rate Pressure Product: [id number] Stress ECG Conclusion 1. Resting electrocardiogram showed left axis late transition possible old anterior infarct 2. Patient underwent testing using pharmacologic stress with regadenoson 3. Peak heart rate achieved was 76% of maximal predicted for age 4. The electrocardiographic portion of the test was nondiagnostic 5. See MPI report Stress Test Summary STAGE HR BP SpO2 Symptoms NOTES Supine 70 140/68 98% Standing 78 110/56 Mild Dizziness, Mild chest tightness 1 min post Lexiscan injection 103 [id number] 97% Mild Dizziness, Mild SOB 3 min post Lexiscan injection 99 100/56 98% Mild Dizziness, Mild SOB 6 min post Lexiscan injection 86 130/62 98% Chest tightness, dizziness, and SOB resolved. MPI Conclusion Myocardial perfusion is normal. There is no ischemia or evidence of prior infarction Ejection fraction cannot be calculated due to technical difficulties
== END 2024-08-01 01:12 ==
LOC: DI 00:52
PROVIDERS: PCP Nurse Practitioner; Visit Provider Internal Medicine Cardiovascular Disease
DX: R07.9 Chest pain, unspecified (principal); E11.9 Type 2 diabetes mellitus without complications; I10 Essential (primary) hypertension; E78.5 Hyperlipidemia, unspecified
CPT/HCPCS: 78452; 93016; 93018; 93017

== ENCOUNTER 2024-09-06 20:11 | Emergency (ER) | payer MEDICARE, SELFPAY ==
[2024-09-06] VITALS (56 sets, daily range): BP systolic 142–240; BP diastolic 42–78; PULSE 72–97; RESP 16–32; TEMP 37.2; O2SAT 96–100
--- NOTE | 2024-09-06 20:00 | RT.EKG_ITS ---
APPROVED REPORT Exam: Resting ECG Reason for Exam: chest pain Patient Location: E HR:95 bpm ECG Measurements Heart Rate [address] 149 P 86 QRSd 94 QRS -60 QT 365 T 62 QTc 458 Conclusion Sinus rhythm...normal P axis, V-rate 60- 99 Left anterior fascicular block...axis(240,-40), init forces inf
[2024-09-06 21:09] LABS: Abs Immature Grans 0.01 10^3/uL (0.0-0.06); Absolute Basophil Count 0.02 10^3/uL (0.0-0.2); Absolute Eosinophil Count 0.15 10^3/uL (0.0-0.7); Absolute Lymphocyte Count 0.85 10^3/uL (1.2-3.4); Absolute Neutrophil Count 3.59 10^3/uL (1.2-6.7); Basophils % 0.4 %; Eosinophils % 2.9 %; HCT 32.8 % (36.0-46.0); HGB 10.5 g/dL (11.2-15.7); Immature Grans % 0.2 %; Lymphocytes % 16.3 %; MCH 27.9 pg (27.0-33.0); MCV 87 fL (80-95); MPV 9.1 fL (8.0-11.0); Monocytes % 11.5 %; Neutrophils % 68.7 %; Platelet Count 246 10^3/uL (130-400); RBC 3.76 10^6/uL (3.93-5.22); RDW 14.3 % (11.7-14.6); RDW-SD 45.9 fL; WBC 5.22 10^3/uL (4.4-10.8)
[2024-09-06] MEDS: nitroGLYcerin 0.4 MG TAB SL ×2 (21:09→21:22)
[2024-09-06 21:27] LABS: ALT 47 U/L (14-59); AST 26 U/L (15-37); Albumin 3.5 g/dL (3.4-5.0); Alkaline Phosphatase 106 U/L (46-116); Anion Gap 7.5 mmol/L (3-11); BUN 20 mg/dL (7-18); Bilirubin, Total 0.3 mg/dL (0.2-1.0); CO2 25.5 mmol/L (21.0-32.0); CREATININE 1.2 mg/dL (0.55-1.02); Calcium 9.2 mg/dL (8.5-10.1); Chloride 104 mmol/L (98-107); Estimated GFR 47.21 (mL/min/1.73m2); Glucose 196 mg/dL (74-106); Magnesium 1.6 mg/dL (1.8-2.4); PTT Activated 25.9 sec (20.6-30.2); Potassium 4.3 mmol/L (3.5-5.1); Sodium 137 mmol/L (136-145); Troponin I 10 ng/L (<or=51)
--- NOTE | 2024-09-06 21:29 | ED.GENADUL_ITS ---
Discharge Plan Disposition Patient Disposition: Home Condition: Stable Discharge Details Clinical Impression: Hypertension, Anxiety, Chest pain Primary Care Provider: Rima Fontenot ED Provider: Darien Musa Home Meds and New Rx's Prescriptions: Continued (DME) nebulizer and compressor Device See Rx Instructions .Route Qty: 1 0RF Rx Instructions: As directed fluticasone propion-salmeterol [Advair Diskus] 250-50 mcg/dose blister with device 1 ea INHALATION BID Qty: 60 12RF ipratropium-albuterol 0.5 mg-3 mg(2.5 mg base)/3 mL solution for nebulization 3 ml inhalation Q6H PRN (Reason: wheezing) Qty: 90 12RF multivitamin Tablet 1 tab PO QAM (DME) nebulizers Misc See Rx Instructions .Route Qty: 1 0RF Rx Instructions: As directed, Q6 prn atorvastatin 40 mg tablet 40 mg PO DAILY Qty: 90 3RF lisinopril 20 mg tablet 20 mg PO DAILY Qty: 90 3RF glimepiride 1 mg tablet 1 mg PO DAILY Qty: 90 3RF clonazepam 0.5 mg tablet 0.5 mg PO 1XD PRN (Reason: Anxiety) Qty: 30 1RF fluoxetine 20 mg capsule See Rx Instructions .ROUTE .COMPLEX Qty: 270 3RF Dose Instruction: TAKE THREE CAPSULES BY MOUTH EVERY DAY Rx Instructions: TAKE THREE CAPSULES BY MOUTH EVERY DAY albuterol sulfate 90 mcg/actuation HFA aerosol inhaler 1 inh INHALATION PRN PRN (Reason: Respiratory Distress) Qty: 8.5 12RF acetaminophen 500 mg tablet 1,000 mg PO TID PRN lidocaine 4 % cream 1 applic topical QID PRN diclofenac sodium 1 % gel 2 g topical QID PRN metformin 1,000 mg tablet 1,000 mg PO DAILY Qty: 90 3RF mometasone [Nasonex 24hr Allergy] 50 mcg/actuation spray,non-aerosol 2 spray intranasal DAILY Qty: 17 0RF Rx Instructions: administer into each nostril Discharge Instructions Instructions: Chest Pain, Adult ED, Anxiety, Adult ED, High Blood Pressure ED Additional Instructions: Please monitor your blood pressure daily and keep a log. Please call your doctor on Monday to arrange timely follow-up next week. You may need adjustment of your antibiotic hypertensive medication. Please be sure to discuss this with your doctor. Return to the emergency department immediately for any worsening or new concerning symptoms. Referrals: Rima Fontenot NP [Primary Care Provider] - [facility] General Mode of arrival: ambulatory . Date/Time Provider Initiated Documentation: 09/06/24 20:47 . Limitations to Documentation: no limitations . Information obtained by: patient . HPI Narrative: 74-year-old female with history of general lysed anxiety disorder, COPD, here with chief complaint of severe chest pain. Patient notes cold-like symptoms with runny nose, sneezing and cough over the past day. This morning around 10 AM she developed chest heaviness described as a sensation of someone sitting on her chest. This has persisted through the day. Patient also notes more sharp left-sided chest discomfort this evening. Patient notes associated stiff neck today. She does have anxiety and feels that her anxiety disorder may be contributing to her symptoms today. She did take a clonazepam 0.25 earlier this evening and notes that this did help her discomfort minimally. Patient did have a recent cardiac stress test within the past 1 month that she states was incomplete due to machine malfunction. Patient denies associated leg swelling or calf pain. No recent long distance travel or immobility. Related Data Home Medications ?Medication ?Instructions ?Recorded ?Confirmed multivitamin 1 tab PO QAM 04/26/22 09/06/24 nebulizers #1 ea 04/26/22 09/06/24 nebulizer and compressor #1 ea 05/05/22 09/06/24 mometasone 50 mcg/actuation nasal 2 spray intranasal DAILY #17 grams 01/10/23 09/06/24 spray (Nasonex 24hr Allergy) acetaminophen 500 mg tablet 1,000 mg PO TID PRN 08/31/23 09/06/24 diclofenac sodium 1 % topical gel 2 g topical QID PRN 08/31/23 09/06/24 lidocaine 4 % topical cream 1 applic topical QID PRN 08/31/23 09/06/24 metformin 1,000 mg tablet 1,000 mg PO DAILY #90 tabs 12/27/23 09/06/24 fluticasone 250 mcg-salmeterol 50 1 ea inhalation BID #60 ea 04/09/24 09/06/24 mcg/dose blistr powdr for inhalation (Advair Diskus) ipratropium 0.5 mg-albuterol 3 mg 3 ml inhalation Q6H PRN wheezing 04/09/24 09/06/24 (2.5 mg base)/3 mL nebulization #90 mL soln atorvastatin 40 mg tablet 40 mg PO DAILY #90 tabs 07/24/24 09/06/24 clonazepam 0.5 mg tablet 0.5 mg PO 1XD PRN Anxiety #30 tabs 07/24/24 09/06/24 fluoxetine 20 mg capsule See Rx Instructions .Route 07/24/24 09/06/24 .COMPLEX #270 caps glimepiride 1 mg tablet 1 mg PO DAILY #90 tabs 07/24/24 09/06/24 lisinopril 20 mg tablet 20 mg PO DAILY #90 tabs 07/24/24 09/06/24 albuterol sulfate 90 mcg/actuation 1 inh inhalation PRN PRN 08/23/24 09/06/24 aerosol inhaler Respiratory Distress #8.5 grams Previous Rx's ?Medication ?Instructions ?Recorded nebulizers #1 ea 04/26/22 nebulizer and compressor #1 ea 05/05/22 mometasone 50 mcg/actuation nasal 2 spray intranasal DAILY #17 grams 01/10/23 spray (Nasonex 24hr Allergy) metformin 1,000 mg tablet 1,000 mg PO DAILY #90 tabs 12/27/23 fluticasone 250 mcg-salmeterol 50 1 ea inhalation BID #60 ea 04/09/24 mcg/dose blistr powdr for inhalation (Advair Diskus) ipratropium 0.5 mg-albuterol 3 mg 3 ml inhalation Q6H PRN wheezing 04/09/24 (2.5 mg base)/3 mL nebulization #90 mL soln atorvastatin 40 mg tablet 40 mg PO DAILY #90 tabs 07/24/24 clonazepam 0.5 mg tablet 0.5 mg PO 1XD PRN Anxiety #30 tabs 07/24/24 fluoxetine 20 mg capsule See Rx Instructions .Route 07/24/24 .COMPLEX #270 caps glimepiride 1 mg tablet 1 mg PO DAILY #90 tabs 07/24/24 lisinopril 20 mg tablet 20 mg PO DAILY #90 tabs 07/24/24 albuterol sulfate 90 mcg/actuation 1 inh inhalation PRN PRN 08/23/24 aerosol inhaler Respiratory Distress #8.5 grams Allergies Allergy/AdvReac Type Severity Reaction Status Date / Time adhesive AdvReac Skin Rash Verified 09/06/24 20:19 bupropion (From Wellbutrin) AdvReac Dizziness/L Verified 09/06/24 20:19 ighthead codeine AdvReac Nausea Verified 09/06/24 20:19 quetiapine (From Seroquel) AdvReac Dizziness/L Verified 09/06/24 20:19 ighthead General Stated Complaint: Chest Pain LOUANN: 2 Exam Const General: cooperative Orientation: alert and awake HENOR Mouth: moist mucous membranes Eyes Conjunctivae: normal conjunctivae Sclera: normal sclerae Neck Neck: trachea midline and supple Resp Auscultation: clear to auscultation bilaterally, no rales, no rhonchi and no wheezes Cardio Rate: regular rate and not tachycardic Rhythm: regular rhythm GI Palpation: soft, not firm, no guarding, no masses, not rigid and nontender Skin General skin exam: no rashes or lesions noted Neuro General: patient alert, patient awake and tone normal Extrem General: no calf tenderness and no edema Psych Appearance: grossly normal Mental Status: mental status grossly normal Mood: anxious mood Attitude: cooperative Thought Process: normal Course Vital Signs Vital signs: Vital Signs Temperature 37.2 C 09/06/24 20:14 Pulse 97 H 09/06/24 20:14 Respiratory Rate 32 H 09/06/24 20:14 Blood Pressure 240/72 H 09/06/24 20:14 Pulse Oximetry 98 09/06/24 20:14 Temperature 37.2 C 09/06/24 20:14 Pulse 91 H 09/06/24 20:20 Pulse 91 H 09/06/24 20:20 Respiratory Rate 30 H 09/06/24 20:22 Respiratory Effort Short of Breath 09/06/24 20:22 Respiratory Depth Normal 09/06/24 20:22 Respiratory Pattern Tachypnea 09/06/24 20:22 Blood Pressure 240/72 H 09/06/24 20:20 Pulse Oximetry 98 09/06/24 20:20 Pain Level 6 09/06/24 20:22 Lab/Test Results Lab/Test Results: Laboratory Tests Range/Units 09/06/24 20:19 WBC (4.4-10.8) 10^3/uL 5.22 RBC (3.93-5.22) 10^6/uL 3.76 L Hgb (11.2-15.7) g/dL 10.5 L Hct (36.0-46.0) % 32.8 L MCV (80-95) fL 87 MCH (27.0-33.0) pg 27.9 MCHC (32.0-36.0) % 32.0 RDW (11.7-14.6) % 14.3 Plt Count (130-400) 10^3/uL 246 MPV (8.0-11.0) fL 9.1 Immature Gran % % 0.2 Neutrophils % % 68.7 Lymphocytes % % 16.3 Monocytes % % 11.5 Eosinophils % % 2.9 Basophils % % 0.4 Nucleated RBC % (0.0-0.3) % 0.0 Absolute Neutrophils (1.2-6.7) 10^3/uL 3.59 Absolute Lymphocytes (1.2-3.4) 10^3/uL 0.85 L Absolute Monocytes (0.1-0.8) 10^3/uL 0.60 Absolute Eosinophils (0.0-0.7) 10^3/uL 0.15 Absolute Basophils (0.0-0.2) 10^3/uL 0.02 Medical Decision Making 2144 --74-year-old female with history of generalized anxiety disorder, COPD, here with chest heaviness as well as left-sided chest discomfort today. Patient is hypertensive 240/72 on arrival. She is saturating well in no respiratory distress. Screening EKG was reviewed and interpreted by me: Please report, sinus rhythm 95 bpm, no STEMI. Q waves concerning for potential prior infarct. Consider ACS. Plan to check troponin and trend. Will give nitroglycerin sublingual and plan to reassess. Consider acute thoracic aortic dissection. Plan to obtain CTA. 2314 --initial troponin negative. Delta 1 hour troponin also negative with no significant change. I reviewed past medical record, myocardial perfusion scan from 08/01/2024: MPI Conclusion Myocardial perfusion is normal. There is no ischemia or evidence of prior infa rction Ejection fraction cannot be calculated due to technical difficulties Presentation not consistent with ACS. CTA of the chest abdomen pelvis interpreted by radiology: No acute findings mild atherosclerosis with no aneurysm or dissection. A few tiny scattered pulmonary nodules incidentally noted. Patient reassessed and feeling better. No pain. She does remain hypertensive. Plan for discharge with close outpatient follow-up. Patient instructed to monitor her blood pressure daily. Usual and customary discharge instructions were reviewed. Patient verbalized understanding of discharge instructions and will return for any worsening or new concerning symptoms. Lab Data Lab results reviewed: Yes I reviewed the patient's lab results. Labs: Laboratory Tests Range/Units 09/06/24 09/06/24 09/06/24 20:19 21:28 23:47 WBC (4.4-10.8) 10^3/uL 5.22 RBC (3.93-5.22) 10^6/uL 3.76 L Hgb (11.2-15.7) g/dL 10.5 L Hct (36.0-46.0) % 32.8 L MCV (80-95) fL 87 MCH (27.0-33.0) pg 27.9 MCHC (32.0-36.0) % 32.0 RDW (11.7-14.6) % 14.3 Plt Count (130-400) 10^3/uL 246 MPV (8.0-11.0) fL 9.1 Immature Gran % % 0.2 Neutrophils % % 68.7 Lymphocytes % % 16.3 Monocytes % % 11.5 Eosinophils % % 2.9 Basophils % % 0.4 Nucleated RBC % (0.0-0.3) % 0.0 Absolute Neutrophils (1.2-6.7) 10^3/uL 3.59 Absolute Lymphocytes (1.2-3.4) 10^3/uL 0.85 L Absolute Monocytes (0.1-0.8) 10^3/uL 0.60 Absolute Eosinophils (0.0-0.7) 10^3/uL 0.15 Absolute Basophils (0.0-0.2) 10^3/uL 0.02 APTT (20.6-30.2) sec 25.9 Sodium (136-145) mmol/L 137 Potassium (3.5-5.1) mmol/L 4.3 Chloride (98-107) mmol/L 104 Carbon Dioxide (21.0-32.0) mmol/L 25.5 Anion Gap (3-11) mmol/L 7.5 BUN (7-18) mg/dL 20 H Creatinine (0.55-1.02) mg/dL 1.2 H Est GFR (CKD-EPI 2020) (mL/min/1.73m2) 47.21 Glucose (74-106) mg/dL 196 H Calcium (8.5-10.1) mg/dL 9.2 Magnesium (1.8-2.4) mg/dL 1.6 L Total Bilirubin (0.2-1.0) mg/dL 0.3 AST (15-37) U/L 26 ALT (14-59) U/L 47 Alkaline Phosphatase (46-116) U/L 106 Troponin I (<or=51) ng/L 10 11 Cancelled Total Protein (6.4-8.2) g/dL 7.0 Albumin (3.4-5.0) g/dL 3.5 COVID-19 Source Nasopharynx SARS-CoV-2 (PCR) (Negative) Negative Influenza Type A (PCR) (Negative) Negative Influenza Type B (PCR) (Negative) Negative RSV (PCR) (Negative) Negative Quality:SDOH Health Related Social Needs: Health related social needs details none, PFSH All Active Problems (Updated 09/06/24 @ 23:47 by Darien Musa MD) Chest pain (Acute) Anxiety (Chronic) Hypertension (Chronic) Anemia (Chronic) Arthritis of right glenohumeral joint (Acute) Incontinence (Acute) CKD (chronic kidney disease) (Chronic) Anxiety (Chronic) Type II diabetes mellitus (Acute) Hypertension (Chronic) Hyperlipidemia (Acute) Sialoadenitis (Acute) Herniated nucleus pulposus of lumbosacral region (Acute) COVID-19 (Acute) Medical History Renal insufficiency Post traumatic stress disorder (PTSD) BRANDON (generalized anxiety disorder) COPD (chronic obstructive pulmonary disease) Asthma Surgical History S/P breast biopsy, right (09/01/22) [facility] [place] benign breast tissue with fibroadenomatous change History of tonsillectomy and adenoidectomy History of cholecystectomy History of laminectomy (06/17/20) Left L3-4 laminotomy discectomy left L3, L4 nerve root decompression Family History Maternal Grandfather Asthma Son Asthma Depression Mother Heart disease Hypertension Brother Heart disease Sister Cancer Uterine Social History Smoking/Tobacco Use Status: Former Tobacco Use Tobacco: How many years used: 50 Smoking risk assessment performed?: Yes Alcohol Intake: current Alcohol Intake frequency: holidays/special occasions only Drug use: Never Substance use type: does not use Counseling given: No Adopted: No Caregiver/Support person: No Foster care: No Household members: children Housing: house Number of Children: 2 number of grandchildren: 5 Communication Needs: None Education Level: high school Do you need help understanding health information?: Rarely current occupation: Retired Pets and animals: No Sexually active: No Do you think of yourself as: straight/heterosexual Current gender identity: female What is your relationship status?: How often do you talk on the phone with friends or family?: three or more times per week How often do you get together with friends or relatives?: once per week Do you belong to any clubs or organized social groups?: no Panel score (0-1 are the most socially isolated patients): 1 What type of physical activity do you participate in: walking Duration: 15-30 minutes/day Frequency: 5-6 times per week Isabel/Hindu: Lutheran Special isabel needs: No Seatbelt use: always Helmet use: No Drive intox or ride w/intox buggy driver: No Working smoke detector in home: Yes Fire extinguisher in home: Yes Carbon monox detector in home: Yes Do you feel safe at home: Yes Do you feel safe in your relationship?: Yes
--- NOTE | 2024-09-06 21:30 | DI.CT_ITS ---
Exam(s) CT THORAX ABD/PEL CTA EXAM: CT THORAX ABD/PEL CTA CLINICAL HISTORY: chest pain, hypertension. TECHNIQUE: Imaging Protocol: Axial CT angiography was performed with multi-slice acquisition and m ulti-planar and/or 3D reconstructions. Lung Computer Aided Detection (CAD) was utilized. CONTRAST MATERIAL: Intravenous: Omnipaque 350 contrast volume:100 mL Oral: No COMPARISON: CT CT ABDOMEN PELVIS W from 02/07/[address] CHEST LUNG CANCER SCREEN from 03/18/2024 CT,NM,TMT NM MPI REST STRESS GRP from 08/01/2024 FINDINGS: CHEST: Tracheobronchial tree: Patent where visualized. There is no evidence of bronchiectasis. Pulmonary parenchyma: Lvks-by-jkhtyhuo emphysematous changes are present in the lungs. There is a ca lcified granuloma in the right lower lobe. No focal consolidating infiltrates are seen. No suspicio us pulmonary nodules are present. Pulmonary Arteries: No evidence of filling defect to suggest pulmonary emboli. Mediastinum and Krista: No dominant adenopathy or fluid collection. The esophagus is unremarkable. Visualized thyroid: Unremarkable. Pleura: No effusion or pneumothorax. Heart: The heart is not dilated. No coronary artery calcifications are seen. No pericardial effusion. Aorta: Thoracic aorta non-dilated. No evidence of dissection. Atherosclerotic calcification is prese nt. Soft Tissues: Unremarkable. Bones: Within normal limits for the patient's age. ABDOMEN AND PELVIS: Abdomen: Celiac axis/mesenteric arteries: No evidence of occlusion or significant stenosis. Renal Arteries: No evidence of occlusion or significant stenosis. Aorta: No evidence of occlusion or significant stenosis. No aneurysm or dissection. Atheroscleroti c calcification is present. Pelvis: Iliac Arteries: No evidence of occlusion or significant stenosis. Atherosclerotic calcification is present. Common Femoral Arteries: No evidence of occlusion or significant stenosis. Atherosclerotic calcific ation is present. ABDOMEN: Liver: Normal density. No measurable mass. Portal, superior mesenteric and splenic veins: Unremarkable. Gallbladder and Biliary Tract: Status post cholecystectomy. There has been no change in size of the extrahepatic bile duct. This likely is secondary to the post cholecystectomy state. No intrahepatic biliary ductal dilatation is present. Pancreas: Normal density, no abnormal calcifications or inflammatory process. Spleen: Normal. Adrenals: No masses seen. Kidneys: Normal size, contour and axis. No radiodense stones or obstructive uropathy. There is a simp le cyst in the left kidney. No follow-up is recommended. Bowel: No obstruction or bowel wall thickening. Appendix is unremarkable. There is a small hiatal her modesta. The stomach is incompletely distended limiting evaluation. Peritoneal Cavity: No ascites, collection or mesenteric inflammatory response. No free air. Lymph Nodes: Within normal limits. Bones: Within normal limits for the patient's age. Soft Tissues: Unremarkable. PELVIS: Bladder: Symmetric distention, no gross wall thickening. Reproductive Organs: Unremarkable as visualized. Lymph Nodes: Within normal limits. Bones: Within normal limits for the patient's age. IMPRESSION: 1. No acute abdominal or pelvic process is present. 2. No evidence of abdominal aortic aneurysm or dissection. 3. No evidence of a pulmonary embolism, thoracic aortic aneurysm or dissection. 4. No acute pulmonary process. 5. The preliminary [facility] report was reviewed. RADIATION DOSE DELIVERED: 947.37mGy.cm Total DLP DATA REPOSITORY: All CT scans at this facility are submitted to the National Radiology Data Registry (NRDR) Dose Index Registry (DIR) with the [place] [employer] (ACR). RADIATION OPTIMIZATION: All CT scans at this facility use at least one of these dose optimization te chniques: automated exposure control; mA and/or kV adjustment per patient size (includes targeted exa ms where dose is matched to clinical indication); or iterative reconstruction.
--- NOTE | 2024-09-06 21:37 | NUR.NOTE ---
nitro SL 0.4 given x 2 for chest pain. pt tolerated well. Bp reduced from 190 systolic to 140s systolic. vital signs cycled every 5 mins. pt states after second nitro tab chest pain had resolved.
[2024-09-06 22:02] LABS: Troponin I 11 ng/L (<or=51)
[2024-09-06 22:15] LABS: COVID-19 PCR Negative (Negative); Influenza A PCR Negative (Negative); Influenza B PCR Negative (Negative); RSV PCR Negative (Negative)
[2024-09-06 22:16] LABS: Source Nasopharynx
[2024-09-06] MEDS: Normal Saline - Diluent 50 ML VIAL IJ (22:17)
[2024-09-06] MEDS: Omnipaque 350 MG/ML 100 ML BTL IJ (22:19)
--- NOTE | 2024-09-06 23:08 | DI.[facility]_ITS ---
PROCEDURE INFORMATION: Exam: CTA Chest With Contrast CTA Abdomen and Pelvis With Contrast Exam date and time: 09/06/2024 22:16 Age: 74 years old Clinical indication: Other: Chest pain, hypertension TECHNIQUE: Imaging protocol: Computed tomographic angiography of the chest with contrast. Exam focused on the arteries. Computed tomographic angiography of the abdomen and pelvis with contrast. Exam focused on the arteries. 3D rendering (Not supervised by radiologist): MIP and/or 3D reconstructed images were created by the technologist. Contrast material: OMNIPAQUE 350; Contrast volume: 100 ml; Contrast route: INTRAVENOUS (IV); COMPARISON: CT CHEST PE CTA 02/07/2022 00:35 FINDINGS: VASCULATURE: Pulmonary arteries: No pulmonary emboli. Aorta: Mild aortic atherosclerosis with no aneurysm or dissection. Celiac trunk and mesenteric arteries: No occlusion or significant stenosis. Renal arteries: No occlusion or significant stenosis. Right iliac arteries: No occlusion or significant stenosis. Left iliac arteries: No occlusion or significant stenosis. CHEST: Lungs: A few tiny scattered pulmonary nodules. Follow-up as per institutional protocol. Moderate pulmonary emphysema, similar to prior. No airspace consolidation. Pleural spaces: No pneumothorax. No pleural effusion. Heart: Mild left atrial dilation, similar to prior. ABDOMEN AND PELVIS: Liver: No hepatic masses. Gallbladder and biliary ducts: Cholecystectomy. Presumed chronic reservoir effect in the CBD which measures about 19 mm with no calcified stones and tapers distally. Pancreas: No mass. No ductal dilation. Spleen: No splenomegaly. Adrenal glands: No mass. Kidneys and ureters: No renal masses or hydronephrosis bilaterally. Symmetric edema around the kidneys without obstruction; could relate to medical renal disease. Stomach and bowel: No obstruction. No mucosal thickening. Appendix: No evidence of appendicitis. Intraperitoneal space: No free air. No significant fluid collection. Urinary bladder: No mass. Reproductive: Unremarkable as visualized. Lymph nodes: No enlarged lymph nodes. Bones/joints: Degenerative changes in the spine. No acute fracture or subluxation. Soft tissues: Unremarkable. IMPRESSION: 1. No acute findings. 2. Incidental findings as described. Dictated and Authenticated by: Jemma Rolon MD. Orderin Lencho Ledezma MD
[2024-09-06] MEDS: LORazepam 1 MG TAB PO (23:51)
== END 2024-09-06 23:59 | disposition home or self-care (01) ==
PROVIDERS: Emergency Provider Student in an Organized Health Care Education/Training Program; PCP Nurse Practitioner
DX: R07.9 Chest pain, unspecified (principal); I10 Essential (primary) hypertension; F41.9 Anxiety disorder, unspecified
CPT/HCPCS: 99284; 99285; 36415; 71275; 80053; 87637; 93005; 74174; 83735; 84484; 85025; 85730; 93010; J3490

== ENCOUNTER 2024-09-12 07:25 | Emergency (ER) | payer MEDICARE, SELFPAY ==
[2024-09-12] VITALS (23 sets, daily range): BP systolic 138–203; BP diastolic 45–69; PULSE 90–103; RESP 19–94; TEMP 37.2; O2SAT 89–100
--- NOTE | 2024-09-12 07:15 | RT.EKG_ITS ---
APPROVED REPORT Exam: Resting ECG Reason for Exam: SOB Patient Location: E HR:99 bpm ECG Measurements Heart Rate 99 AXIS W[place] 152 P 82 QRSd 91 QRS -61 QT 358 T 62 QTc 459 Conclusion Sinus rhythm...normal P axis, V-rate 60- 99 Left anterior fascicular block...axis(240,-40), init forces inf Anterior infarct, old...Q >40mS, abnormal ST-T, V2-V5 SInus rhythm with left anterior fasicular block. No change from prior 09/06/24. WD
--- NOTE | 2024-09-12 07:30 | DI.RAD_ITS ---
Exam(s) XR PORTABLE CHEST AP EXAM: XR PORTABLE CHEST AP CLINICAL HISTORY: SOB TECHNIQUE: 2D digital imaging was performed. COMPARISON: No exams were available for comparison FINDINGS: LUNGS: Clear. No pleural abnormality seen. HEART: Normal size. AORTA: Normal diameter. BONES: Unremarkable for age. Soft tissues: Unremarkable. IMPRESSION: No acute findings. DATA REPOSITORY: RADIATION DOSE DELIVERED:
--- NOTE | 2024-09-12 07:41 | W.ED.GENAD ---
Discharge Plan Disposition Patient Disposition: Home Condition: Stable Discharge Details Clinical Impression: Acute exacerbation of chronic obstructive pulmonary disease (COPD), Anxiety Primary Care Provider: Rima Fontenot ED Provider: Snow Marques Home Meds and New Rx's Prescriptions: New prednisone 50 mg tablet 50 mg PO DAILY Qty: 5 0RF doxycycline hyclate 100 mg capsule 100 mg PO BID 7 Days Qty: 14 0RF No Action (DME) nebulizer and compressor Device See Rx Instructions .Route Qty: 1 0RF Rx Instructions: As directed fluticasone propion-salmeterol [Advair Diskus] 250-50 mcg/dose blister with device 1 ea INHALATION BID Qty: 60 12RF ipratropium-albuterol 0.5 mg-3 mg(2.5 mg base)/3 mL solution for nebulization 3 ml inhalation Q6H PRN (Reason: wheezing) Qty: 90 12RF multivitamin Tablet 1 tab PO QAM (DME) nebulizers Misc See Rx Instructions .Route Qty: 1 0RF Rx Instructions: As directed, Q6 prn atorvastatin 40 mg tablet 40 mg PO DAILY Qty: 90 3RF lisinopril 20 mg tablet 20 mg PO DAILY Qty: 90 3RF glimepiride 1 mg tablet 1 mg PO DAILY Qty: 90 3RF clonazepam 0.5 mg tablet 0.5 mg PO 1XD PRN (Reason: Anxiety) Qty: 30 1RF fluoxetine 20 mg capsule See Rx Instructions .ROUTE .COMPLEX Qty: 270 3RF Dose Instruction: TAKE THREE CAPSULES BY MOUTH EVERY DAY Rx Instructions: TAKE THREE CAPSULES BY MOUTH EVERY DAY albuterol sulfate 90 mcg/actuation HFA aerosol inhaler 1 inh INHALATION PRN PRN (Reason: Respiratory Distress) Qty: 8.5 12RF acetaminophen 500 mg tablet 1,000 mg PO TID PRN lidocaine 4 % cream 1 applic topical QID PRN diclofenac sodium 1 % gel 2 g topical QID PRN metformin 1,000 mg tablet 1,000 mg PO DAILY Qty: 90 3RF mometasone [Nasonex 24hr Allergy] 50 mcg/actuation spray,non-aerosol 2 spray intranasal DAILY Qty: 17 0RF Rx Instructions: administer into each nostril Discharge Instructions Instructions: Anxiety, Adult ED, COPD Exacerbation, Adult ED Referrals: Rima Fontenot NP [Primary Care Provider] - 5 days Discharge Data Discharge Physician: Snow Marques [facility] General Date/Time Provider Initiated Documentation: 09/12/24 07:32. HPI Narrative: 74-year-old female with history of COPD and anxiety presents for evaluation of cough and shortness of breath. Patient states that she has had increased cough over the last several days. She has had occasional sputum production. No hemoptysis. She has had some low-grade fevers. She does feel nauseous. Denies any vomiting. No increased urinary frequency, dysuria, gross hematuria. No leg pain or swelling. No history of blood clots. She is not on any blood thinners. No recent oral steroid use or antibiotic use. She has had admissions to the hospital in the past for breathing difficulty. She was seen here last week for chest discomfort with unremarkable workup at that time. Patient states that she does have black mold in her home. Related Data Home Medications ?Medication ?Instructions ?Recorded ?Confirmed multivitamin 1 tab PO QAM 04/26/22 09/12/24 nebulizers #1 ea 04/26/22 09/12/24 nebulizer and compressor #1 ea 05/05/22 09/12/24 mometasone 50 mcg/actuation nasal 2 spray intranasal DAILY #17 grams 01/10/23 09/12/24 spray (Nasonex 24hr Allergy) acetaminophen 500 mg tablet 1,000 mg PO TID PRN 08/31/23 09/12/24 diclofenac sodium 1 % topical gel 2 g topical QID PRN 08/31/23 09/12/24 lidocaine 4 % topical cream 1 applic topical QID PRN 08/31/23 09/12/24 metformin 1,000 mg tablet 1,000 mg PO DAILY #90 tabs 12/27/23 09/12/24 fluticasone 250 mcg-salmeterol 50 1 ea inhalation BID #60 ea 04/09/24 09/12/24 mcg/dose blistr powdr for inhalation (Advair Diskus) ipratropium 0.5 mg-albuterol 3 mg 3 ml inhalation Q6H PRN wheezing 04/09/24 09/12/24 (2.5 mg base)/3 mL nebulization #90 mL soln atorvastatin 40 mg tablet 40 mg PO DAILY #90 tabs 07/24/24 09/12/24 clonazepam 0.5 mg tablet 0.5 mg PO 1XD PRN Anxiety #30 tabs 07/24/24 09/12/24 fluoxetine 20 mg capsule See Rx Instructions .Route 07/24/24 09/12/24 .COMPLEX #270 caps glimepiride 1 mg tablet 1 mg PO DAILY #90 tabs 07/24/24 09/12/24 lisinopril 20 mg tablet 20 mg PO DAILY #90 tabs 07/24/24 09/12/24 albuterol sulfate 90 mcg/actuation 1 inh inhalation PRN PRN 08/23/24 09/12/24 aerosol inhaler Respiratory Distress #8.5 grams doxycycline hyclate 100 mg capsule 100 mg PO BID 7 days #14 caps 09/12/24 prednisone 50 mg tablet 50 mg PO DAILY #5 tabs 09/12/24 Previous Rx's ?Medication ?Instructions ?Recorded nebulizers #1 ea 04/26/22 nebulizer and compressor #1 ea 05/05/22 mometasone 50 mcg/actuation nasal 2 spray intranasal DAILY #17 grams 01/10/23 spray (Nasonex 24hr Allergy) metformin 1,000 mg tablet 1,000 mg PO DAILY #90 tabs 12/27/23 fluticasone 250 mcg-salmeterol 50 1 ea inhalation BID #60 ea 04/09/24 mcg/dose blistr powdr for inhalation (Advair Diskus) ipratropium 0.5 mg-albuterol 3 mg 3 ml inhalation Q6H PRN wheezing 04/09/24 (2.5 mg base)/3 mL nebulization #90 mL soln atorvastatin 40 mg tablet 40 mg PO DAILY #90 tabs 07/24/24 clonazepam 0.5 mg tablet 0.5 mg PO 1XD PRN Anxiety #30 tabs 07/24/24 fluoxetine 20 mg capsule See Rx Instructions .Route 07/24/24 .COMPLEX #270 caps glimepiride 1 mg tablet 1 mg PO DAILY #90 tabs 07/24/24 lisinopril 20 mg tablet 20 mg PO DAILY #90 tabs 07/24/24 albuterol sulfate 90 mcg/actuation 1 inh inhalation PRN PRN 08/23/24 aerosol inhaler Respiratory Distress #8.5 grams doxycycline hyclate 100 mg capsule 100 mg PO BID 7 days #14 caps 09/12/24 prednisone 50 mg tablet 50 mg PO DAILY #5 tabs 09/12/24 Allergies Allergy/AdvReac Type Severity Reaction Status Date / Time adhesive AdvReac Skin Rash Verified 09/12/24 07:33 bupropion (From Wellbutrin) AdvReac Dizziness/L Verified 09/12/24 07:33 ighthead codeine AdvReac Nausea Verified 09/12/24 07:33 quetiapine (From Seroquel) AdvReac Dizziness/L Verified 09/12/24 07:33 ighthead General Stated Complaint: SOB LOUANN: 3 Review of Systems Narrative: Remainder of review of systems otherwise negative except for as noted in the HPI x 10. Exam Narrative Exam Narrative: General: non-toxic, no respiratory distress, comfortable HEENT: normocephalic, atraumatic, lids and lashes normal, PERRL, EOMI, anicteric sclera, no conjunctival injection, moist oral mucosa Card: Tachycardic, regular, S1S2, no murmurs, rubs, or gallops Lungs: good air entry, diffuse rhonchi, no wheezes, rales or retractions, harsh cough Abd: soft, non-tender, non-distended, normal bowel sounds, no rebound or guarding, no peritoneal signs Musculoskeletal: full range of motion of arms and legs, no tenderness to palpation. no clubbing, cyanosis, or edema Neurologic: appropriate for age, strength normal Psych: alert and oriented Skin: no petechiae, no lesions, warm and dry Course Vital Signs Vital signs: Vital Signs Temperature 37.2 C 09/12/24 07:30 Pulse 101 H 09/12/24 07:30 Respiratory Rate 20 09/12/24 07:30 Blood Pressure 168/69 H 09/12/24 07:30 Pulse Oximetry 94 09/12/24 07:30 Temperature 37.2 C 09/12/24 07:35 Temperature Source Oral 09/12/24 07:35 Pulse 101 H 09/12/24 07:35 Respiratory Rate 20 09/12/24 07:35 Blood Pressure 168/69 H 09/12/24 07:35 Blood Pressure Position Sitting 09/12/24 07:35 Pulse Oximetry 94 09/12/24 07:35 Oxygen Delivery Method Room Air 09/12/24 07:35 Oxygen Flow Rate 0 09/12/24 07:35 Pain Level 8 09/12/24 07:35 Lab/Test Results Lab/Test Results: 09/12/24 07:38 Blood Blood Culture - Pending 09/12/24 07:38 Blood Blood Culture - Pending Medical Decision Making 74-year-old female with history of COPD and anxiety presents for evaluation of cough and shortness of breath. She does have diffuse rhonchi on examination. EKG shows sinus rhythm without acute ischemic changes. Chest x-ray unremarkable. Patient treated with IV steroid, IV magnesium, DuoNeb. She also requested Ativan for anxiety. Laboratory studies unremarkable. 2 troponins flat. On reassessment patient's breathing is improved. She feels much better. Given her symptoms and history of COPD will treat her for a COPD exacerbation with doxycycline and prednisone. I do feel that she is stable for discharge home at this time. She understands that symptoms may worsen and that she should return with any worsening symptoms or new concerns. Quality:SDOH Health Related Social Needs: Health related social needs details none, Critical Care Time Critical Care Time Attestation: CRITICAL CARE Total critical care time: 35 minutes Critical care concerns: COPD exacerbation Critical care interventions: IV magnesium, IV steroid, DuoNeb, antibiotic, reassessment Total critical care time included the assessment and discussions as described in the emergency department history, physical, and medical decision making. The critical care time provided excludes separately billable procedures. PFSH All Active Problems (Updated 09/12/24 @ 10:05 by Snow Marques MD) Acute exacerbation of chronic obstructive pulmonary disease (COPD) (Acute) Chest pain (Acute) Anxiety (Chronic) Hypertension (Chronic) Anemia (Chronic) Arthritis of right glenohumeral joint (Acute) Incontinence (Acute) CKD (chronic kidney disease) (Chronic) Anxiety (Chronic) Type II diabetes mellitus (Acute) Hypertension (Chronic) Hyperlipidemia (Acute) Sialoadenitis (Acute) Herniated nucleus pulposus of lumbosacral region (Acute) COVID-19 (Acute) Medical History Renal insufficiency Post traumatic stress disorder (PTSD) BRANDON (generalized anxiety disorder) COPD (chronic obstructive pulmonary disease) Asthma Surgical History [place]09[place]22[place] [facility] [place] with fibroadenomatous [place] History of tonsillectomy and adenoidectomy History of cholecystectomy History of laminectomy (06/17/20) Left L3-4 laminotomy discectomy left L3, L4 nerve root decompression Family History Maternal Grandfather Asthma Son Asthma Depression Mother Heart disease Hypertension Brother Heart disease Sister Cancer Uterine Social History Smoking/Tobacco Use Status: Former Tobacco Use Tobacco: How many years used: 50 Smoking risk assessment performed?: Yes Alcohol Intake: current Alcohol Intake frequency: holidays/special occasions only Drug use: Never Substance use type: does not use Counseling given: No Adopted: No Caregiver/Support person: No Foster care: No Household members: children Housing: house Number of Children: 2 number of grandchildren: 5 Communication Needs: None Education Level: high school Do you need help understanding health information?: Rarely current occupation: Retired Pets and animals: No Sexually active: No Do you think of yourself as: straight/heterosexual Current gender identity: female What is your relationship status?: How often do you talk on the phone with friends or family?: three or more times per week How often do you get together with friends or relatives?: once per week Do you belong to any clubs or organized social groups?: no Panel score (0-1 are the most socially isolated patients): 1 What type of physical activity do you participate in: walking Duration: 15-30 minutes/day Frequency: 5-6 times per week Isabel/Mandaeism: Rastafari Special isabel needs: No Seatbelt use: always Helmet use: No Drive intox or ride w/intox tower truck driver: No Working smoke detector in home: Yes Fire extinguisher in home: Yes Carbon monox detector in home: Yes Do you feel safe at home: Yes Do you feel safe in your relationship?: Yes
[2024-09-12 08:01] LABS: Lactate 1.5 mmol/L (<or=2.0)
[2024-09-12 08:03] LABS: Abs Immature Grans 0.04 10^3/uL (0.0-0.06); Absolute Basophil Count 0.02 10^3/uL (0.0-0.2); Absolute Eosinophil Count 0.06 10^3/uL (0.0-0.7); Absolute Lymphocyte Count 0.63 10^3/uL (1.2-3.4); Absolute Monocyte Count 0.61 10^3/uL (0.1-0.8); Absolute Neutrophil Count 8.06 10^3/uL (1.2-6.7); Basophils % 0.2 %; Eosinophils % 0.6 %; HCT 31.5 % (36.0-46.0); HGB 10.2 g/dL (11.2-15.7); Immature Grans % 0.4 %; Lymphocytes % 6.7 %; MCH 28.1 pg (27.0-33.0); MCHC 32.4 % (32.0-36.0); MCV 87 fL (80-95); MPV 8.8 fL (8.0-11.0); Monocytes % 6.5 %; Neutrophils % 85.6 %; Platelet Count 239 10^3/uL (130-400); RBC 3.63 10^6/uL (3.93-5.22); RDW 14.1 % (11.7-14.6); RDW-SD 45.1 fL; WBC 9.42 10^3/uL (4.4-10.8)
[2024-09-12] MEDS: Ondansetron 4 MG/2 ML VIAL IVP (08:15)
[2024-09-12] MEDS: methylPREDNISolone SUCC 125 MG VIAL IVP (08:17)
[2024-09-12] MEDS: LORazepam 20 MG/10 ML VIAL IV (08:20)
[2024-09-12] MEDS: Normal Saline Flush 10 ML SYR IVP (08:22)
[2024-09-12] MEDS: MAGNESIUM SULFATE 2 GM/50 ML BAG IV_INF (08:23)
[2024-09-12 08:26] LABS: ALT 41 U/L (14-59); AST 21 U/L (15-37); Albumin 3.5 g/dL (3.4-5.0); Alkaline Phosphatase 106 U/L (46-116); Anion Gap 8.8 mmol/L (3-11); BUN 29 mg/dL (7-18); Bilirubin, Total 0.5 mg/dL (0.2-1.0); CO2 25.2 mmol/L (21.0-32.0); CREATININE 1.4 mg/dL (0.55-1.02); Chloride 99 mmol/L (98-107); Estimated GFR 39.23 (mL/min/1.73m2); Glucose 219 mg/dL (74-106); Magnesium 1.4 mg/dL (1.8-2.4); NT-proBNP 264 pg/mL (<300); Potassium 4.9 mmol/L (3.5-5.1); Sodium 133 mmol/L (136-145); Total Protein 7.4 g/dL (6.4-8.2); Troponin I 5 ng/L (<or=51)
[2024-09-12] MEDS: Albuterol/Ipratropium 3 ML UPD VIAL UPD (08:28)
[2024-09-12 08:49] LABS: Calcium 9.3 mg/dL (8.5-10.1)
[2024-09-12 09:26] LABS: Troponin I 6 ng/L (<or=51)
[2024-09-12] MEDS: Doxycycline Hyclate 100 MG CAP PO (10:07)
== END 2024-09-12 10:38 | disposition home or self-care (01) ==
PROVIDERS: Emergency Provider Emergency Medicine Emergency Medical Services; PCP Nurse Practitioner
DX: J44.1 Chronic obstructive pulmonary disease with (acute) exacerbation (principal)
CPT/HCPCS: 99291; 96375; 94640; 36415; 80053; 87040; 93005; 96365; 71045; 83605; 83735; 83880; 84484; 85025; 93010; J2060; J2405; J2919; J3475; J7620

== ENCOUNTER → 2024-10-29 13:00 | Outpatient (BNVA) | payer MEDICARE, SELFPAY | PROVIDERS: PCP Nurse Practitioner; Referring Provider Nurse Practitioner; Visit Provider Physician Assistant Surgical | DX: J44.9 Chronic obstructive pulmonary disease, unspecified (principal); J45.909 Unspecified asthma, uncomplicated; R53.83 Other fatigue; Z87.891 Personal history of nicotine dependence | CPT/HCPCS: 99215; G2212; 36415 ==

== ENCOUNTER 2024-10-29 15:39 | Outpatient (REF) | payer MEDICARE, SELFPAY ==
[2024-10-29 16:40] LABS: Abs Immature Grans 0.01 10^3/uL (0.0-0.06); HCT 33.6 % (36.0-46.0); HGB 10.7 g/dL (11.2-15.7); Immature Grans % 0.2 %; MCH 28.7 pg (27.0-33.0); MCHC 31.8 % (32.0-36.0); MCV 90 fL (80-95); MPV 9.0 fL (8.0-11.0); Platelet Count 296 10^3/uL (130-400); RBC 3.73 10^6/uL (3.93-5.22); RDW 14.2 % (11.7-14.6); RDW-SD 46.6 fL; WBC 4.45 10^3/uL (4.4-10.8)
[2024-10-29 17:16] LABS: Anion Gap 10.5 mmol/L (3-11); BUN 26 mg/dL (7-18); CO2 25.5 mmol/L (21.0-32.0); Calcium 9.7 mg/dL (8.5-10.1); Chloride 103 mmol/L (98-107); Estimated GFR 47.21 (mL/min/1.73m2); Glucose 120 mg/dL (74-106); Magnesium 2.0 mg/dL (1.8-2.4); Potassium 4.7 mmol/L (3.5-5.1); Sodium 139 mmol/L (136-145)
== END 2024-10-29 15:40 | disposition home or self-care (01) ==
LOC: LBN 15:39
PROVIDERS: PCP Nurse Practitioner; Visit Provider Physician Assistant Surgical
DX: J45.909 Unspecified asthma, uncomplicated (principal); J44.9 Chronic obstructive pulmonary disease, unspecified; D64.9 Anemia, unspecified
CPT/HCPCS: 80048; 82785; 83735; 85025

== ENCOUNTER → 2024-12-02 14:42 | Outpatient (BNVA) | payer MEDICARE, SELFPAY | PROVIDERS: PCP Nurse Practitioner; Referring Provider Nurse Practitioner; Visit Provider Physician Assistant Surgical | DX: J44.9 Chronic obstructive pulmonary disease, unspecified (principal); J45.909 Unspecified asthma, uncomplicated; R53.83 Other fatigue; Z87.891 Personal history of nicotine dependence | CPT/HCPCS: 99214; 36415 ==

== ENCOUNTER 2024-12-02 17:00 | Outpatient (REF) | payer MEDICARE, SELFPAY ==
[2024-12-02 16:01] LABS: Abs Immature Grans 0.01 10^3/uL (0.0-0.06); HCT 33.1 % (36.0-46.0); HGB 10.5 g/dL (11.2-15.7); Immature Grans % 0.2 %; MCH 27.9 pg (27.0-33.0); MCHC 31.7 % (32.0-36.0); MCV 88 fL (80-95); MPV 8.9 fL (8.0-11.0); Platelet Count 272 10^3/uL (130-400); RBC 3.76 10^6/uL (3.93-5.22); RDW 13.8 % (11.7-14.6); RDW-SD 44.6 fL; WBC 4.88 10^3/uL (4.4-10.8)
[2024-12-02 19:21] LABS: Iron 47 ug/dL (50-170); Total Iron Binding Capacity 446 ug/dL (250-450)
== END 2024-12-02 17:01 | disposition home or self-care (01) ==
LOC: LBN 17:00
PROVIDERS: PCP Nurse Practitioner; Visit Provider Physician Assistant Surgical
DX: D64.9 Anemia, unspecified (principal)
CPT/HCPCS: 83540; 83550; 85025

== ENCOUNTER → 2025-01-30 13:06 | Outpatient (BNVA) | payer MEDICARE, SELFPAY | PROVIDERS: PCP Nurse Practitioner; Referring Provider Nurse Practitioner; Visit Provider Physician Assistant Surgical | DX: J44.9 Chronic obstructive pulmonary disease, unspecified (principal); J45.909 Unspecified asthma, uncomplicated; Z87.891 Personal history of nicotine dependence; R53.83 Other fatigue | CPT/HCPCS: 99214 ==

== ENCOUNTER 2025-02-21 13:45 | Outpatient (CLI) | payer MEDICARE, SELFPAY ==
[2025-02-21 14:28] LABS: Glucose Negative (Negative)
[2025-02-21 14:47] LABS: RBC Negative HPF (0-2)
[2025-02-21 15:55] LABS: Albumin 3.4 g/dL (3.4-5.0); Anion Gap 9.6 mmol/L (3-11); BUN 27 mg/dL (7-18); CO2 25.4 mmol/L (21.0-32.0); Calcium 9.4 mg/dL (8.5-10.1); Chloride 105 mmol/L (98-107); Glucose 105 mg/dL (74-106); Potassium 4.8 mmol/L (3.5-5.1); Sodium 140 mmol/L (136-145)
== END 2025-02-21 13:46 | disposition home or self-care (01) ==
LOC: LBO 13:46
PROVIDERS: PCP Nurse Practitioner; Visit Provider Internal Medicine
DX: N18.30 Chronic kidney disease, stage 3 unspecified (principal); R39.15 Urgency of urination; R39.9 Unspecified symptoms and signs involving the genitourinary system; I10 Essential (primary) hypertension; E11.22 Type 2 diabetes mellitus with diabetic chronic kidney disease; D63.1 Anemia in chronic kidney disease; E55.9 Vitamin D deficiency, unspecified
CPT/HCPCS: 36415; 80069; 81003; 81015